=== PATIENT | male | born 1955 | race Caucasian/White ===

== ENCOUNTER → 2016-08-24 | Outpatient (CLI) | payer OTHER ==
--- NOTE | 2016-08-24 15:30 | DX ---
Lumbar Spine, Two Views. HISTORY: Follow-up lumbar spine surgery. COMPARISON: June 2016. FINDINGS: Five lumbar-type vertebral bodies are visualized. There is a slight levoscoliotic curvature which is stable. Postsurgical changes are seen of fusion L4-L5 with interbody bone graft. 5 mm of an terolisthesis of L4 on L5 which is stable. Pedicle screws and stabilization rods on the right as well as a spinous process fixation device. Minimal disk height narrowing and spurring at L3-L4 with minim al anterolisthesis of L3 on L4 unchanged. Vascular calcifications are seen in the abdominal aorta ind icating atherosclerotic disease. IMPRESSION: Stable postoperative changes of fusion L4-L5 with grade 1 anterior spondylolisthesis as a karely.
== END ==
LOC: FIMAGING 11:59
PROVIDERS: ATTEND Neurological Surgery
DX: Z09 Encounter for follow-up examination after completed treatment for conditions other than malignant neoplasm (principal); Z98.1 Arthrodesis status; M43.16 Spondylolisthesis, lumbar region

== ENCOUNTER → 2016-09-02 | Outpatient (CLI) | payer OTHER ==
[~2016-09-02] MED LIST: GADOBUTROL 10 ML VIAL IVP ONE
[2016-09-02 12:54] LABS: CREATININE 1.5 mg/dL (0.7-1.3)
--- NOTE | 2016-09-02 15:54 | MR ---
MRI Lumbar Spine Without and With Contrast History: Back pain. History of prior lumbar fusion. Right leg pain. Left leg numbness. Comparison: March 2016. Technique: MRI is performed of the lumbar spine using a 1.5 Ilene MRI system. Sagittal and axial imag ing was obtained with standard imaging sequences. Images were obtained pre- and postintravenous contr ast, 8 mL Gadavist. Findings: Postsurgical changes are seen of fusion, L4-L5. Pedicle screws are seen on the right. Inter body bone graft is seen in place in stable position. No evidence for abnormal enhancement. Spinous fi xation device is seen at L5-S1 and right laminectomy. Conus is visualized at T12-L1. No evidence of a bnormal enhancement of the conus or cauda equina. Minimal anterolisthesis is seen of L4 on L5, stable in appearance. T12-L1 level unremarkable. L1-L2 level unremarkable. L2-L3 level demonstrates a minimal broad-based annular bulge, causing no significant encroachment. L3-L4 level demonstrates a broad-based annular bulge. Moderate facet and ligament flavum hypertrophy is seen bilaterally and fluid distention of the facet joints. A synovial cyst is seen posterior to th e left facet joint, measuring 6 mm. This is causing mild spinal canal and mild to moderate bilateral neural foraminal narrowing, similar in appearance. L4-L5 level demonstrates no significant neural foraminal encroachment. L5-S1 level demonstrates mild facet arthropathy, causing no significant encroachment. Impression: 1. Postsurgical changes of fusion, L4-L5 with mild grade 1 anterior spondylolisthesis of L4 on L5 wit h a stable appearance. 2. Multilevel degenerative disk and degenerative joint disease of the lumbar spine, most significant at L3-L4 with mild spinal canal and mild to moderate bilateral neural foraminal narrowing, similar in appearance.
== END ==
LOC: FIMAGING 11:29
PROVIDERS: ATTEND Physician Assistant Surgical
DX: M43.16 Spondylolisthesis, lumbar region (principal); Z98.1 Arthrodesis status
CPT/HCPCS: 72158; A9585

== ENCOUNTER → 2016-09-27 | Outpatient (CLI) | payer OTHER, MEDICAID | LOC: FIMAGING 10:22 | PROVIDERS: ATTEND Physician Assistant Surgical | DX: M43.16 Spondylolisthesis, lumbar region (principal); Z98.1 Arthrodesis status ==

== ENCOUNTER 2016-10-13 14:36 | Emergency (ER) | payer OTHER ==
[2016-10-13] MEDS ORDERED: PROPARACAINE 0.5% 15 ML OPHT DROP ONE (14:51)
[2016-10-13] MEDS ORDERED: FLUORESCEIN SODIUM 1 MG STRIP OP ONE ×2 (14:51→14:54)
[2016-10-13 14:54] VITALS: RESP 14; TEMP 98.4
[2016-10-13] MEDS ORDERED: PROPARACAINE 0.5% 15 ML OPHT DROP LEFTEYE ONE (14:54)
--- NOTE | 2016-10-13 15:08 | EDPHY ---
H & P Time Seen by Provider: 10/13/16 14:43 HPI/ROS: CHIEF COMPLAINT: left eye irritation HISTORY OF PRESENT ILLNESS: 61-year-old male presents emergency department complaining of left eye irritation. Patient reports he saw his elementary school teacher 3 days ago for a pain in his left upper eye. Patient thought he had a retained gas per mandible hard contact lens. The elementary school teacher was unable to locate lens and discharge him Systane. Patient returns today with continued pain is left upper eye. Patient reports he looks up he feels like he has something scratching his upper eyelid with sharp pain, no fevers or chills, no discharge, no itching of this eye, no recent illness. Smoking Status: Former smoker Physical Exam: Pupils: PERRLA, EOMI, no nystagmus, no trauma, no injection. Lids: Left eyelid was inverted, heart contact lens was seen in upper left lateral eye, this was removed without difficulty with a Q-tip Skin: No proptosis, no periorbital erythema or swelling, no vesicles Conjunctivae: Not injected, not icteric, no discharge Cornea: Exam with slit lamp and fluoroscein shows no corneal abrasion, negative Dominga sign Anterior chamber: Normal, no hyphema or hypopyon Constitutional: Initial Vital Signs Temperature (C) 36.9 C 10/13/16 14:52 Heart Rate 87 10/13/16 14:52 Respiratory Rate 14 10/13/16 14:52 Blood Pressure 155/98 H 10/13/16 14:52 O2 Sat (%) 96 10/13/16 14:52 O2 Delivery Mode Room Air Allergies/Adverse Reactions: oxycodone HCl [From OxyContin] Allergy (Verified 10/13/16 14:52) Itching Home Medications: Medication Instructions Recorded Docusate Sodium [Colace 100 MG (*)] 100 mg PO BID 01/20/15 Emtricitabine/Tenofovir [Truvada 1 tab PO DAILY@00 01/20/15 200MG/300MG (*)] Esomeprazole Mag Trihydrate 80 mg PO DAILY 01/20/15 [Nexium] Famciclovir [Famvir 250 MG (*)] 1,000 mg PO DAILY@00 01/20/15 Fluticasone Nasal [Flonase Nasal 2 sprays EACHNARE DAILY 01/20/15 [place]] Gabapentin [Neurontin] 600 mg PO HS 01/20/15 Loratadine [Claritin] 10 mg PO DAILY 01/20/15 Nevirapine [Viramune 200 mg (*)] 400 mg PO DAILY@00 01/20/15 Simvastatin 40 mg PO DAILY 01/20/15 Docusate Sodium [Colace 100 MG (*)] 100 mg PO DAILY PRN 01/21/15 oxyCODONE IR [Oxycodone Ir (*)] 5 mg PO Q4 PRN #60 tab 01/27/15 Oxycodone HCl 5 - 10 mg PO Q4-6PRN PRN #10 02/13/15 capsule MDM/Departure - MDM Medications Given: Discontinued Medications Fluorescein Sodium (Txhcr-H-Ssvdz) 1 mg OP EDNOW ONE Stop: 10/13/16 14:55 Last Admin: 10/13/16 14:55 Dose: 1 mg Proparacaine HCl (Alcaine 0.5%) 1 drops LEFTEYE ONCE ONE Stop: 10/13/16 14:55 Last Admin: 10/13/16 14:55 Dose: 1 drop ED Course/Re-evaluation: Contact lens removed from left eye after inverting upper eyelid. Lens move removed without difficulty, fluorescein and slit-lamp exam reveals no corneal abrasion. - Depart Disposition: Home, Routine, Self-Care Clinical Impression: Contact lens stuck Condition: Good Instructions: Blurred Vision (ED) Additional Instructions: Use your lubricating eyedrops every hour as needed. Follow up with her elementary school teacher for any further problems, return to the emergency department for worsening symptoms, new symptoms or concerns. Referrals: JASPAL TSANG [Other] - As per Instructions
[2016-10-13 15:24] VITALS: BP 110/78; PULSE 70; O2SAT 94
== END 2016-10-13 15:23 | disposition home or self-care (01) ==
DX: H18.822 Corneal disorder due to contact lens, left eye (principal); Z87.891 Personal history of nicotine dependence

== ENCOUNTER → 2016-11-05 | Outpatient (CLI) | payer OTHER | LOC: FIMAGING 09:40 | PROVIDERS: ATTEND Physician Assistant Surgical | DX: M54.5 Low back pain (principal); M51.26 Other intervertebral disc displacement, lumbar region; M48.06 Spinal stenosis, lumbar region; Z98.1 Arthrodesis status ==

== ENCOUNTER → 2016-11-27 | Outpatient (CLI) | payer OTHER | LOC: FIMAGING 18:03 | PROVIDERS: ATTEND Physician Assistant Surgical | DX: M47.894 Other spondylosis, thoracic region (principal); M48.04 Spinal stenosis, thoracic region; M43.13 Spondylolisthesis, cervicothoracic region; M43.16 Spondylolisthesis, lumbar region ==

== ENCOUNTER 2016-12-25 11:10 | Emergency (ER) | payer OTHER ==
[2016-12-25 11:21] VITALS: BP 134/92; PULSE 71; RESP 18; TEMP 98.4; O2SAT 96
--- NOTE | 2016-12-25 12:04 | EDPHY ---
H & P Time Seen by Provider: 12/25/16 11:24 HPI/ROS: CHIEF COMPLAINT: Leg weakness after a fall on Saturday HISTORY OF PRESENT ILLNESS: Patient had spine surgery by Dr. Parker in 2014. He has chronic right leg radiculopathy and weakness. He fell on Saturday landing on his left side and has had some increased difficulty walking since with right leg pain and weakness. He has chronic right leg radiculopathy but says his pain is worse. Is having some difficulty walking was worried that he has a new spinal problem. No incontinence. No new sensory symptoms in the legs. Denies back pain or pelvic pain. REVIEW OF SYSTEMS: Eye: no change in vision ENT: no sore throat Cardiac: no chest pain or syncope Pulmonary: no cough or SOB Abdomen: no vomiting, diarrhea, abdominal pain Musculoskeletal: no back pain Skin: no rash Neuro: no headache Constitutional: no fever : no urinary symptoms A comprehensive 10 point review of systems is otherwise negative aside from elements mentioned in the history of present illness. PAST MEDICAL HISTORY: Includes HIV, coronary disease with stenting, spinal fusion as above Social history: Lives independently on the 1st floor, no steps. Says he is able to manage at home with crutches and home health care. General Appearance: Alert and conversant, cooperative. Eyes: No scleral icterus. ENT, Mouth: Normal mucous membranes. Respiratory: Normal respiratory effort, breath sounds equal, lungs are clear to auscultation. Cardiovascular: Regular rate and rhythm. Gastrointestinal: Abdomen is soft and non tender. Neurological: Alert and oriented x3. Normally conversant. Face symmetric, normal movement and sensation in all extremities. Toes are downgoing bilaterally. Patellar reflexes 1+ and present on both sides, ankle reflexes 1+ and present and able to lift each leg off the bed independently. He does have 5 /5 plantar and dorsiflexion of the feet. Skin: Warm and dry, no rashes. Musculoskeletal: No peripheral edema and no joint swelling. No spinal tenderness to palpation. Does not have hip pain on either side with rotation or axial loading. Psychiatric: Not agitated. Emergency Department course/MDM: Plan lumbar spine x-rays, MRI to evaluate for new spinal problem. 1250: MRI per Isuanthom, L3-4 and 4-5 right sided narrowing. 1305: Gustavo fuentes V reviewed MRI, okay for discharge per neurosurgical perspective , results discussed with the patient at this time. Patient refused blood draw or laboratory studies. I think he has a low risk of metabolic abnormality causing his symptoms but he is warned that we can't completely exclude this without checking. Ambulatory out of the emergency department at 2:10 p.m. Smoking Status: Former smoker Constitutional: Initial Vital Signs Temperature (C) 36.9 C 12/25/16 11:16 Heart Rate 71 12/25/16 11:16 Respiratory Rate 18 12/25/16 11:16 Blood Pressure 134/92 H 12/25/16 11:16 O2 Sat (%) 96 12/25/16 11:16 O2 Delivery Mode Room Air Allergies/Adverse Reactions: oxycodone HCl [From OxyContin] Allergy (Verified 12/25/16 11:13) Itching Home Medications: Medication Instructions Recorded Esomeprazole Mag Trihydrate 80 mg PO DAILY 01/20/15 [Nexium] Fluticasone Nasal [Flonase Nasal 2 sprays EACHNARE DAILY 01/20/15 [place]] Gabapentin [Neurontin] 600 mg PO HS 01/20/15 Aspirin 325 mg (*) 12/25/16 Atorvastatin Calcium 12/25/16 Descovy 200-25 mg Tablet 12/25/16 Plavix 12/25/16 Tivicay 12/25/16 Medical Decision Making - Diagnostics Imaging Results: Imaging Impressions Lumbar Spine MRI 12/25/16 11:44 Impression: 1. L3-L4: Moderate central canal stenosis secondary to severe bilateral facet arthropathy and disk bulge also resulting in mild to moderate bilateral neural foraminal stenosis. 2. L4-L5: Postsurgical changes with degenerative grade 1 anterolisthesis resulting in mild to moderate right neural foraminal stenosis with probable granulation tissue in the right neural foramen. No central canal stenosis. 3. Please see above findings at specific disk levels. Findings and recommendations discussed with Emergency Department physician, Negrito Harding, at 1300 hours on December 25, 2016. Final report concurs with initial preliminary interpretation. X-rays lumbar spine and pelvis negative except for scoliosis and hardware. Differential Diagnosis: Differential considered including but not limited to hip contusion, worsening radiculopathy, spinal cord stenosis, fracture or dislocation - Data Points Laboratory Results: 12/25/16 13:10 Urine Color YELLOW Urine Appearance CLEAR Urine pH 7.0 (5.0-7.5) Ur Specific [place] 1.009 (1.002-1.030) Urine Protein NEGATIVE (NEGATIVE) Urine Ketones NEGATIVE (NEGATIVE) Urine Blood NEGATIVE (NEGATIVE) Urine Nitrate NEGATIVE (NEGATIVE) Urine Bilirubin NEGATIVE (NEGATIVE) Urine Urobilinogen NEGATIVE EU EU (0.2-1.0) Ur Leukocyte Esterase NEGATIVE (NEGATIVE) Urine Glucose NEGATIVE (NEGATIVE) Departure - Departure Disposition: Home, Routine, Self-Care Clinical Impression: Lumbar radiculopathy Condition: Good Instructions: Lumbar Radiculopathy (ED) Referrals: Favio Walsh MD [Primary Care Provider] - As per Instructions
[2016-12-25 13:39] LABS: COLOR YELLOW; LEUKOCYTE ESTERASE,URINE NEGATIVE (NEGATIVE); NITRITE,URINE NEGATIVE (NEGATIVE)
== END 2016-12-25 14:15 | disposition home or self-care (01) ==
DX: M54.16 Radiculopathy, lumbar region (principal); B20 Human immunodeficiency virus [HIV] disease; I25.10 Atherosclerotic heart disease of native coronary artery without angina pectoris; Z79.82 Long term (current) use of aspirin; Z87.891 Personal history of nicotine dependence; Z95.5 Presence of coronary angioplasty implant and graft

== ENCOUNTER → 2017-01-04 | Outpatient (CLI) | payer OTHER | LOC: FIMAGING 12:56 | PROVIDERS: ATTEND Neurological Surgery | DX: Z01.810 Encounter for preprocedural cardiovascular examination (principal) ==

== ENCOUNTER 2017-01-12 20:25 | Emergency (ER) | payer OTHER ==
[2017-01-12 20:33] VITALS: BP 145/96; PULSE 106; RESP 18; TEMP 97.7; O2SAT 96
--- NOTE | 2017-01-12 21:43 | EDPHY ---
H & P Time Seen by Provider: 01/12/17 21:20 HPI/ROS: CHIEF COMPLAINT: Pulled wires of spinal cord stimulator out of the control box HISTORY OF PRESENT ILLNESS: Patient had spinal cord stimulator placed on 2016. This is a temporary 1 with external wires which connects to a [employer] control box. Today he accidentally pulled off the dressing and the wires got caught on the door and they pulled out of the control box. REVIEW OF SYSTEMS: His radiculopathy is actually quite a bit better with this and he does not have any weakness or numbness in his legs. No active bleeding from the site. 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 Patient has normal motor and sensory of both feet. Toes downgoing. Ambulatory. His lumbar incision is clean dry and intact with Steri-Strips in place. Site with the wires exit is clean without evidence of surrounding redness or drainage or pus or bleeding. Emergency Department course/MDM: Discussed in detail with the on-call surgeon Dr. Green. Plan to have the patient connect with the [employer] rep tomorrow to reset his wires of the device. Discussed with the [employer] rep at 9:57 p.m. per surgeon, clearly stable for discharge without any further action. There is not evidence of bleeding or infection at this time. Smoking Status: Former smoker Constitutional: Initial Vital Signs Temperature (C) 36.5 C 01/12/17 20:28 Heart Rate 106 H 01/12/17 20:28 Respiratory Rate 18 01/12/17 20:28 Blood Pressure 145/96 H 01/12/17 20:28 O2 Sat (%) 96 01/12/17 20:28 O2 Delivery Mode Room Air Allergies/Adverse Reactions: oxycodone HCl [From OxyContin] Allergy (Verified 01/12/17 20:33) Itching Home Medications: Medication Instructions Recorded Esomeprazole Mag Trihydrate 80 mg PO DAILY 01/20/15 [Nexium] Fluticasone Nasal [Flonase Nasal 2 sprays EACHNARE DAILY 01/20/15 [place]] Gabapentin [Neurontin] 600 mg PO HS 01/20/15 Aspirin 325 mg (*) 12/25/16 Atorvastatin Calcium 12/25/16 Descovy 200-25 mg Tablet 12/25/16 Plavix 12/25/16 Tivicay 12/25/16 Keflex 01/12/17 [place] 5/325 (*) 01/12/17 MDM/Departure - Depart Disposition: Home, Routine, Self-Care Clinical Impression: spinal cord stimulator problem Condition: Good Instructions: Additional Information Additional Instructions: Call [employer] tomorrow to arrange to meet the rep to get the ends of your wires fixed. Referrals: MARIAH REYNOLDS [Other] - As per Instructions Favio Walsh MD [Medical Doctor] - As per Instructions
== END 2017-01-12 21:50 | disposition home or self-care (01) ==
DX: Z46.2 Encounter for fitting and adjustment of other devices related to nervous system and special senses (principal); B20 Human immunodeficiency virus [HIV] disease; Z79.82 Long term (current) use of aspirin

== ENCOUNTER 2017-04-09 23:06 | Emergency (ER) | payer OTHER ==
--- NOTE | 2017-04-09 23:56 | EDPHY ---
H & P Stated Complaint: trouble walking, altered speech - recent med changes x3 days HPI/ROS: HPI CHIEF COMPLAINT: Slow speech, slurred speech, trouble walking HISTORY OF PRESENT ILLNESS: This patient very pleasant 61-year-old male, he does have significant past medical history for HIV, bipolar disorder on lithium , additionally he has coronary artery disease and GERD, he presents emergency room stating for the past 48 hours he has been feeling slow mentation, slow speech, and trouble with his gait. He thinks it may be that his lithium level is too high. He did up his lithium level the past week. He went to 900 mg. From 600 mg. Additionally he has tapered off Neurontin recently. He denies any chest pain or shortness of breath. Denies headache. Denies focal weakness or numbness or tingling. Past Medical History: HIV, bipolar disorder, coronary artery disease, GERD Past Surgical History: No recent surgery Social History: Denies daily use of drugs alcohol tobacco products. 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 Family History: Noncontributory ROS REVIEW OF SYSTEMS: A comprehensive 10 point review of systems is otherwise negative aside from elements mentioned in the history of present illness. Exam Constitutional appears well nontoxic, triage nursing summary reviewed, vital signs reviewed, awake/alert. Eyes normal conjunctivae and sclera, EOMI, PERRLA. HENT normal inspection, atraumatic, moist mucus membranes, no epistaxis, neck supple/ no meningismus, no raccoon eyes. Respiratory clear to auscultation bilaterally, normal breath sounds, no respiratory distress, no wheezing. Cardiovascular rate normal, regular rhythm, no murmur, no edema, distal pulses normal. Gastrointestinal soft, non-tender, no rebound, no guarding, normal bowel sounds, no distension, no pulsatile mass. Genitourinary no CVA tenderness. Musculoskeletal no midline vertebral tenderness, full range of motion, no calf swelling, no tenderness of extremities, no meningismus, good pulses, neurovascularly intact. Skin pink, warm, & dry, no rash, skin atraumatic. Neurologic awake, alert and oriented x 3, AAOx3, moves all 4 extremities equally, motor intact, sensory intact, CN II-XII intact, normal cerebellar, normal vision, normal speech. Psychiatric normal mood/affect. Heme/Lymph/Immune no lymphadenopathy. Differential Diagnosis: Includes but is not limited to in a particular order supratherapeutic lithium level, dehydration, electrolyte disturbance, acute CVA , TIA Medical Decision Making: Plan for this patient IV establishment, blood work, CT scan head without contrast for stroke, check lithium level. Gentle IV hydration. Re-evaluation: 0117AM: EKG interpretation by me on record in TURN[employer] system. Impression time of EKG 1:09 a.m. this is sinus rhythm rate of 74, T-wave abnormality V1 V2 V3. V4 V5. T-wave abnormality in lateral leads 1 aVL as well. When I compare this EKG to his old EKGs these are new T-wave abnormalities. CT scan of the head without IV contrast The results of the study are negative for acute disease The study was read by Dr. Reagan I viewed the images myself on the PACS system. Need Labs. Sodium is 143, potassium 3.9 chloride 108 glucose 100 BUN 20, creatinine 1.6 hematocrit 35 hemoglobin 11.9 Lihtium ED x-ray chest one view negative for acute cardiopulmonary disease. Labs have been reviewed the following troponin is negative. Chemistry panel reviewed glucose 105, chloride 102, K 4.1, sodium 136, creatinine 1.6, BUN 21, lithium level 1.6, calcium 10.3 0156AM: [place] level noted to be 1.6 normal ranges high of 1.2. Creatinine elevated 1.6. He has received 1 L of fluid. Most likely the cause of his slow mentation and abnormal speech and trouble walking is elevated lithium level. He received 1 L normal saline will receive a 2nd L. CBC shows white count 8.2, hemoglobin 13.1, hematocrit 40.1, platelets 318 0210AM: This patient is requesting be discharged he states he feels much better after 1 L normal saline bolus. I did encourage the patient get a 2nd L of normal saline however she is declining would like to go home. He tells me feels better. He denies any chest pain or shortness of breath. I did review his CT scan of his head unremarkable chest x-ray unremarkable lab work is reassuring. No elevated white count. His EKG is noted to be changed from previous EKGs however does not have any chest pain or shortness of breath. I did encourage him that if he develops chest pain, shortness of breath severe dizziness nausea vomiting he needs return to the emergency room. He understands. He understands to also additionally stop taking extra doses of lithium. Source: Patient - Personal History Current Tetanus/Diphtheria Vaccine: Yes Current Tetanus Diphtheria and Acellular Pertussis (TDAP): Yes Tetanus Vaccine Date: <10 years - Medical/Surgical History Hx Asthma: No Hx Chronic Respiratory Disease: No Hx Diabetes: No Hx Cardiac Disease: Yes Hx Renal Disease: Yes Hx Cirrhosis: No Hx Alcoholism: Yes Hx HIV/AIDS: Yes Hx Splenectomy or Spleen Trauma: No Other PMH: HIV, stents placed [address] [place] [address] Lambert, lumbar fusion January 20 2015, spinal cord stimulator 01/10/2017 - Social History Smoking Status: Former smoker Constitutional: Initial Vital Signs Temperature (C) 36.5 C 04/09/17 23:08 Heart Rate 79 04/09/17 23:08 Respiratory Rate 18 04/09/17 23:08 Blood Pressure 138/100 H 04/09/17 23:08 O2 Sat (%) 98 04/09/17 23:08 O2 Delivery Mode Room Air Allergies/Adverse Reactions: oxycodone HCl [From OxyContin] Allergy (Verified 01/12/17 20:33) Itching Home Medications: Medication Instructions Recorded Esomeprazole Mag Trihydrate 80 mg PO DAILY 01/20/15 [Nexium] Fluticasone Nasal [Flonase Nasal 2 sprays EACHNARE DAILY 01/20/15 [place]] Gabapentin [Neurontin] 600 mg PO HS 01/20/15 Aspirin 325 mg (*) 12/25/16 Atorvastatin Calcium 12/25/16 Descovy 200-25 mg Tablet 12/25/16 Plavix 12/25/16 Tivicay 12/25/16 [place] Carbonate 04/09/17 Medical Decision Making - Data Points Laboratory Results: Laboratory Results 04/10/17 00:50 04/10/17 04/10/17 04/10/17 01:32 00:50 00:50 WBC RBC Hgb POC Hgb 11.9 gm/dL L gm/dL (13.7-17.5) Hct POC Hct 35 % L % (40-51) MCV MCH MCHC RDW Plt Count MPV Neut % (Auto) Lymph % (Auto) [place] % (Auto) Eos % (Auto) Baso % (Auto) Nucleat RBC Rel Count Absolute Neuts (auto) Absolute Lymphs (auto) Absolute Monos (auto) Absolute Eos (auto) Absolute Basos (auto) Absolute Nucleated RBC Immature Gran % Immature Gran # PT 14.0 SEC SEC (12.0-15.0) INR 1.09 (0.83-1.16) POC Sodium 143 mEq/L mEq/L (134-144) Sodium Pending POC Potassium 3.9 mEq/L mEq/L (3.3-5.0) Potassium Pending POC Chloride 108 mEq/L mEq/L (97-110) Chloride Pending Carbon Dioxide Pending Anion Gap Pending POC BUN 20 mg/dL mg/dL (7-23) BUN Pending Creatinine Pending POC Creatinine 1.6 mg/dL H mg/dL (0.7-1.3) Estimated GFR Pending Glucose Pending POC Glucose 100 mg/dL mg/dL (70-100) Calcium Pending Troponin I < 0.012 ng/mL ng/mL (0.000-0.034) [place] Pending 04/10/17 00:50 WBC 8.82 10^3/uL 10^3/uL (3.80-9.50) RBC 4.20 10^6/uL L 10^6/uL (4.40-6.38) Hgb 13.1 g/dL L g/dL (13.7-17.5) POC Hgb Hct 40.1 % % (40.0-51.0) POC Hct MCV 95.5 fL fL (81.5-99.8) MCH 31.2 pg pg (27.9-34.1) MCHC 32.7 g/dL g/dL (32.4-36.7) RDW 12.8 % % (11.5-15.2) Plt Count 318 10^3/uL 10^3/uL (150-400) MPV 9.3 fL fL (8.7-11.7) Neut % (Auto) 61.1 % % (39.3-74.2) Lymph % (Auto) 28.7 % % (15.0-45.0) [place] % (Auto) 6.1 % % (4.5-13.0) Eos % (Auto) 3.3 % % (0.6-7.6) Baso % (Auto) 0.6 % % (0.3-1.7) Nucleat RBC Rel Count 0.0 % % (0.0-0.2) Absolute Neuts (auto) 5.39 10^3/uL 10^3/uL (1.70-6.50) Absolute Lymphs (auto) 2.53 10^3/uL 10^3/uL (1.00-3.00) Absolute Monos (auto) 0.54 10^3/uL 10^3/uL (0.30-0.80) Absolute Eos (auto) 0.29 10^3/uL 10^3/uL (0.03-0.40) Absolute Basos (auto) 0.05 10^3/uL 10^3/uL (0.02-0.10) Absolute Nucleated RBC 0.00 10^3/uL 10^3/uL (0-0.01) Immature Gran % 0.2 % % (0.0-1.1) Immature Gran # 0.02 10^3/uL 10^3/uL (0.00-0.10) PT INR POC Sodium Sodium POC Potassium Potassium POC Chloride Chloride Carbon Dioxide Anion Gap POC BUN BUN Creatinine POC Creatinine Estimated GFR Glucose POC Glucose Calcium Troponin I [place] Medications Given: Discontinued Medications Sodium Chloride (Ns) 1,000 mls @ 0 mls/hr IV ONCE ONE; Wide Open PRN Reason: Protocol Stop: 04/10/17 00:16 Last Admin: 04/10/17 00:27 Dose: 1,000 mls Point of Care Test Results: 04/10/17 01:32 POC Sodium 143 POC Potassium 3.9 POC Chloride 108 POC BUN 20 POC Creatinine 1.6 H POC Glucose 100 Departure - Departure Disposition: Home, Routine, Self-Care Clinical Impression: Dizziness Condition: Good Instructions: Dizziness (ED) Additional Instructions: 1. Please stay well-hydrated drink lots of fluids. 2. Stop taking extra lithium. 3. Return emergency room if you have any further significant medical issues including worsening symptoms chest pain, shortness of breath, dizziness, lightheaded, syncope. Referrals: Lucas Cook MD [Primary Care Provider] - As per Instructions
[2017-04-10] MEDS ORDERED: NS 1,000 ML IV ONE (00:15)
[2017-04-10 00:54] LABS: % IMMATURE GRANULYOCYTES 0.2 % (0.0-1.1); ABSOLUTE IMMATURE GRANULOCYTES 0.02 10^3/uL (0.00-0.10); ADD DIFF? NO; ADD MORPH? NO; ADD SCAN? NO; ATYPICAL LYMPHOCYTE FLAG 0 (0-99); FRAGMENT RBC FLAG 0 (0-99); HEMATOCRIT 40.1 % (40.0-51.0); HEMOGLOBIN 13.1 g/dL (13.7-17.5); LEFT SHIFT FLG 0 (0-99); LIPEMIA HEMOLYSIS FLAG 80 (0-99); MEAN CELL HEMOGLOBIN 31.2 pg (27.9-34.1); MEAN CELL HEMOGLOBIN CONCENTR. 32.7 g/dL (32.4-36.7); MEAN CELL VOLUME 95.5 fL (81.5-99.8); MEAN PLATELET VOLUME 9.3 fL (8.7-11.7); PLATELET CLUMPS FLAG 0 (0-99); PLATELET COUNT 318 10^3/uL (150-400); RED CELL DISTRIBUTION WIDTH 12.8 % (11.5-15.2)
--- NOTE | 2017-04-10 01:02 | CPEKG ---
Heart Rate: 74 RR Interval: 811 P-R Interval: 184 QRSD Interval: 100 QT Interval: 416 QTC Interval: 462 P [place]: 35 QRS [place]: -6 T Wave [place]: 189 EKG Severity - ABNORMAL ECG - EKG Impression: SINUS RHYTHM EKG Impression: LEFT ATRIAL ABNORMALITY EKG Impression: REPOL ABNRM SUGGESTS ISCHEMIA, DIFFUSE LEADS Electronically Signed By: Lucas Sales 10-Apr-2017 07:17:35
[2017-04-10 01:03] LABS: INR 1.09 (0.83-1.16)
[2017-04-10 01:33] LABS: TROPONIN I < 0.012 ng/mL (0.000-0.034)
[2017-04-10 01:48] LABS: ANION GAP 13 mEq/L (8-16); CALCIUM 10.3 mg/dL (8.5-10.4); CARBON DIOXIDE 21 mEq/l (22-31); CHLORIDE 102 mEq/L (97-110); CREATININE 1.6 mg/dL (0.7-1.3); GLOMERULAR FILTRATION RATE 44; GLUCOSE 105 mg/dL (70-100); LITHIUM 1.6 mEq/L (0.6-1.2); POTASSIUM 4.1 mEq/L (3.5-5.2); SODIUM 136 mEq/L (134-144)
[2017-04-10 05:42] VITALS: BP 121/99; PULSE 95; RESP 16; TEMP 98.1; O2SAT 99
== END 2017-04-10 02:15 | disposition home or self-care (01) ==
DX: R42 Dizziness and giddiness (principal); E86.0 Dehydration; B20 Human immunodeficiency virus [HIV] disease; I25.10 Atherosclerotic heart disease of native coronary artery without angina pectoris; R78.89 Finding of other specified substances, not normally found in blood; E86.9 Volume depletion, unspecified; Z87.891 Personal history of nicotine dependence; Z79.82 Long term (current) use of aspirin
CPT/HCPCS: 82947-QW

== ENCOUNTER 2017-05-11 16:53 | Emergency (ER) | payer OTHER ==
[2017-05-11 17:11] VITALS: BP 144/96; PULSE 87; RESP 16; TEMP 97.5; O2SAT 97
--- NOTE | 2017-05-11 18:18 | EDPHY ---
General Time Seen by Provider: 05/11/17 17:51 Narrative: CHIEF COMPLAINT: Leg pain HISTORY OF PRESENT ILLNESS: Patient complains of pain in both lower extremities. This has been present for 1-2 weeks gradual onset. Constant duration. [id number] pain. It is located on the right hip and wraps around the anterior thigh into the medial knee. Also located on the left and proximal thigh. [id number] pain. Worse with movement and ambulation. Some improvement with rest. There is no change in his baseline sensory, which does have some paresthesia from lumbar radiculopathy. He has no saddle anesthesia. No incontinence of bowel or bladder. No retention of bowel or bladder. No weakness of the legs. No footdrop. Does have a history of lumbar pathology, status post spinal cord stimulator January. He was feeling well until he saw his surgeon to see ago. No new trauma. No other associated complaints or modifying factors. REVIEW OF SYSTEMS: Ten systems reviewed and are negative unless otherwise noted in the HPI PCP: Dr. Walsh SPECIALISTS: Dr. Walsh PAST MEDICAL HISTORY: Bipolar disorder, right-sided lumbar radiculopathy from L5 down, HIV positive with normal count, coronary artery disease, osteoporosis, osteoarthritis PAST SURGICAL HISTORY: But cord stimulator January 2017, L4-5 fusion 2014, ORIF left ankle remotely SOCIAL HISTORY: Nonsmoker. Quit smoking in 2002. Does not drink alcohol, quit drinking alcohol in 1989. No illicit substances. FAMILY HISTORY: Noncontributory EXAMINATION General Appearance: Alert, no distress Head: normocephalic, atraumatic Eyes: Pupils equal and round, no conjunctival pallor or injection ENT, Mouth: Mucous membranes moist Neck: Normal inspection, supple, non-tender Respiratory: No returns or distress Cardiovascular: Regular rate and rhythm. No murmur. Pulses intact distally in symmetrically with DP and PT pulses 2+ Back: non-tender, no bony abnormalities. There is a well-healed midline surgical incision in the thoracic region. There is no crepitus, step-off or deformity. Neurological: A&O, nonfocal, normal gait. Strength is symmetric in 4 limbs. No foot drop. Patellar reflexes are symmetric at 2+ Skin: Warm and dry, no rash. No lacerations or abrasions. No petechiae or purpura Extremities: Nontender, no pedal edema. Symmetric range of motion of both legs. Psychiatric: Mood and affect normal DIFFERENTIAL DIAGNOSES: Including but not limited to lumbar radiculopathy, chronic pain, neuropathic pain, hip pain MDM: 6:00 p.m. Bilateral lower extremity pain without any evidence of acute cord compression or cauda equina. No footdrop. He is neuro intact. Strength is 5/5 in the hips , ankles and knees. No dysmetria of the lower extremities. Patient does not want narcotics. I do feel he would benefit from return to the Neurontin for the next 2 days and then follow up with his neurosurgeon. I discussed this with Dr. Sales and the patient as well. We are all in agreement. He has his own Neurontin at home from previous prescription and is not . I also discussed ED precautions for the patient including saddle anesthesia, incontinence of bowel or bladder, weakness of the lower extremities or foot drop. He is comfortable this plan. He is discharged home stable condition. - History Smoking Status: Former smoker - Objective Vital Signs: Initial Vital Signs Temperature (C) 97.5 F 05/11/17 17:07 Heart Rate 87 05/11/17 17:07 Respiratory Rate 16 05/11/17 17:07 Blood Pressure 144/96 H 05/11/17 17:07 O2 Sat (%) 97 05/11/17 17:07 O2 Delivery Mode Room Air Allergies/Adverse Reactions: lithium [From Eskalith] Allergy (Verified 05/11/17 17:02) oxycodone HCl [From OxyContin] Allergy (Verified 05/11/17 17:02) Itching Home Medications: Medication Instructions Recorded Esomeprazole Mag Trihydrate 80 mg PO DAILY 01/20/15 [Nexium] Fluticasone Nasal [Flonase Nasal 2 sprays EACHNARE DAILY 01/20/15 Fabius] Aspirin 325 mg (*) 12/25/16 Atorvastatin Calcium 12/25/16 Descovy 200-25 mg Tablet 12/25/16 Plavix 12/25/16 Tivicay 12/25/16 Aspirin EC 325 mg (*) 05/11/17 Departure - Departure Disposition: Home, Routine, Self-Care Clinical Impression: S/P lumbar spinal fusion, Lumbar radiculopathy, chronic Condition: Good Instructions: Lumbar Radiculopathy (ED) Additional Instructions: 1. Neurontin 300 mg tonight x1, then 300 mg twice daily tomorrow, then 300 mg 3 times daily starting Saturday 2. Follow up with Dr. Walsh 3. ED precautions for worsening pain, numbness, tingling, weakness of the extremities, foot drop, incontinence of bowel or bladder Referrals: Lucas Cook MD [Primary Care Provider] - As per Instructions Favio Walsh MD [Medical Doctor] - As per Instructions
== END 2017-05-11 18:30 | disposition home or self-care (01) ==
DX: M54.16 Radiculopathy, lumbar region (principal); I25.10 Atherosclerotic heart disease of native coronary artery without angina pectoris; B20 Human immunodeficiency virus [HIV] disease; Z79.82 Long term (current) use of aspirin; Z87.891 Personal history of nicotine dependence; Z98.890 Other specified postprocedural states

== ENCOUNTER 2017-05-29 13:24 | Emergency (ER) | payer OTHER ==
[2017-05-29 13:34] VITALS: RESP 18
--- NOTE | 2017-05-29 14:49 | EDPHY ---
General - History Smoking Status: Former smoker Narrative: CHIEF COMPLAINT: Leg pain, weakness HISTORY OF PRESENT ILLNESS: Patient complains of severe right lower extremity pain. This has worsened since the last time I evaluated him 2 weeks ago. He has history of low back pain status post laminectomy and fusion and spinal cord stimulator in place since January of this year. He was seen here by me recently and we started him back on his Neurontin. He has been contacting his surgeon Dr. Walsh. Patient says that his office had informed him that they cannot provide any further services to him and that he should see a painter tumbling barrel. He reports increasing pain in the right lower extremity from the buttock down to the top of the foot. It is severe. It is worse with palpation and ambulation. It radiates down the entire leg. No numbness or tingling. No weakness. No incontinence of bowel or bladder. No new trauma or injury. The pain stimulator was adjusted 3 weeks ago and he feels as though it is worse since then. He has made attempts to discuss with the [employer] sales representative. REVIEW OF SYSTEMS: Ten systems reviewed and are negative unless otherwise noted in the HPI PCP: Dr. Cook SPECIALISTS: Dr. Walsh PAST MEDICAL HISTORY: Bipolar disorder, chronic low back pain, lumbar radiculopathy, HIV PAST SURGICAL HISTORY: Lumbar laminectomy with diskectomy and fusion. Spinal cord stimulator placement SOCIAL HISTORY: Nonsmoker. Disability FAMILY HISTORY: Noncontributory EXAMINATION General Appearance: Alert, no distress Head: normocephalic, atraumatic Eyes: Pupils equal and round, no conjunctival pallor or injection ENT, Mouth: Mucous membranes moist Neck: Normal inspection, supple, non-tender Respiratory: No retractions or distress Cardiovascular: Regular rate. Pulses intact distally with symmetric DP and PT pulses. Back: Mild lumbar tenderness. No step-off, crepitus or deformity. There is a well-healed lumbar surgical incision. Neurological: GCS 15. A&O, nonfocal, no foot drop on the right lower extremity. Strength is symmetric in the knees, ankles and hips. Sensory intact distally. Patellar reflexes symmetric. Skin: Warm and dry, no rash Extremities: Point tenderness of the right buttock. Range of motion is intact in lower extremities without deficit. No evidence of DVT. Psychiatric: Mood and affect normal DIFFERENTIAL DIAGNOSES: Including but not limited to lumbar radiculopathy, acute cord compression, cauda equina, malfunction of spinal cord stimulator MDM: 3:20 p.m. Increasing right lower extremity pain that seems to be radicular. He does have a chronic back pain history. He does have stimulator placed. No saddle anesthesia or evidence of acute cord compression or cauda equina by history exam. Given his severity of pain, inability to ambulate due to this, I have ordered MRI of the lumbar spine. He informs me that he has an MRI safe stimulator, and he has had 1 MRI since placement of the stimulator. 4:15 p.m. Notified by RN that the patient is asking for pain medication for MRI. Due to his Percocet allergy I have ordered morphine IM. 4:40 p.m. Attempted to re-evaluate the patient is still in MRI. I discussed the case with Dr. Harding. Pending outcome of the MRI, plan for discharge home with pain medication, neurosurgery follow-up and crutches if needed. This of course assume that there is no surgical finding on the MRI. 5:00 p.m. Case discussed with Dr. Harding. At this time he is whom care the patient. Patient still in MRI. Please see the note of Dr. Harding for final disposition (Lee Gilliland) Medical Decision Making: MRI compared to December 2016 similar, no change, Isuani at 1801. 1805: Patient personally evaluated by myself, appears to have normal movement of both legs. Ambulatory. Afebrile, diskitis considered unlikely. He is requesting additional morphine 2 mg IM which is given. He was written for outpatient oral narcotics by Lee Gilliland. Discussed the case and imaging results with Ron López; office follow-up with his neurosurgeon. (Negrito Harding) - Diagnostics Imaging Results: Imaging Impressions Lumbar Spine MRI 05/29/17 15:02 Impression: 1. L3-L4: Moderate central canal stenosis, moderate to severe right neural foraminal stenosis and moderate left neural foraminal stenosis secondary to severe bilateral facet arthropathy, mild degenerative disk disease and disk bulge. 2. L4-L5: Postsurgical changes with degenerative grade 1 anterolisthesis and disk edema similar to previous study. No central canal or neural foraminal stenosis. 3. Please see above findings at specific disk levels. Findings and recommendations discussed with Emergency Department physician, Dr. Negrito Harding at 18:00 hour, 05/29/2017. Final report concurs with initial preliminary interpretation. - Objective Vital Signs: Initial Vital Signs Temperature (C) 36.5 C 05/29/17 13:26 Heart Rate 78 05/29/17 13:26 Respiratory Rate 18 05/29/17 13:26 Blood Pressure 140/80 H 05/29/17 13:26 O2 Sat (%) 94 05/29/17 13:26 O2 Delivery Mode Room Air Allergies/Adverse Reactions: oxycodone HCl [From OxyContin] Allergy (Verified 05/29/17 13:26) Itching escalith Allergy (Uncoded 05/29/17 13:35) Home Medications: Medication Instructions Recorded Atorvastatin Calcium [Lipitor 40 40 mg PO 05/29/17 mg (*)] Clopidogrel Bisulfate [Plavix (*)] 75 mg PO DAILY 05/29/17 Dolutegravir Sodium [Tivicay] 10 mg PO 05/29/17 Emtricitabine/Tenofov Alafenam 1 each PO 05/29/17 [Descovy 200-25 mg Tablet] Esomeprazole Magnesium [Nexium] 05/29/17 Gabapentin [Neurontin 300 MG (*)] 05/29/17 Hydrocodone/APAP 5/325 [[place] 1 - 2 tab PO Q4H PRN #13 tab 05/29/17 5/325 (*)] [place] Carbonate [[place] 300 mg PO 05/29/17 Carbonate Cap 300 mg (*)] Medications Given: Discontinued Medications Morphine Sulfate (Morphine) 6 mg IM EDNOW ONE Stop: 05/29/17 16:12 Last Admin: 05/29/17 16:27 Dose: 2 mg Morphine Sulfate (Morphine) 2 mg IM EDNOW ONE Stop: 05/29/17 18:13 Last Admin: 05/29/17 18:40 Dose: 2 mg Departure - Departure Disposition: Home, Routine, Self-Care Clinical Impression: Lumbar radiculopathy, acute Chronic low back pain Qualifiers: Back pain laterality: right Sciatica presence: with sciatica Sciatica laterality: sciatica of right side Qualified Code(s): M54.41 - Lumbago with sciatica, right side Condition: Good Instructions: Lumbar Radiculopathy (ED) Additional Instructions: 1. Medications as prescribed as needed 2. Follow up with established neurosurgeon for definitive care Referrals: Lucas Cook MD [Primary Care Provider] - As per Instructions Favio Walsh MD [Medical Doctor] - As per Instructions Prescriptions: Hydrocodone/APAP 5/325 [[place] 5/325 (*)] 1 - 2 tab PO Q4H PRN #13 tab PRN Reason: Pain, Moderate
[2017-05-29 18:44] VITALS: BP 145/102; PULSE 67; TEMP 98.1; O2SAT 97
== END 2017-05-29 18:45 | disposition home or self-care (01) ==
DX: M54.41 Lumbago with sciatica, right side (principal); M54.16 Radiculopathy, lumbar region; B20 Human immunodeficiency virus [HIV] disease; Z87.891 Personal history of nicotine dependence

== ENCOUNTER 2017-05-31 12:46 | Emergency (ER) | payer OTHER ==
--- NOTE | 2017-05-31 14:11 | EDPHY ---
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 Meza. He was seen here 2 days ago and had an MRI that time that showed no change from previous. He states that his spinal stimulator was turned down about 3 weeks ago and since then he has had increasing his pain and cannot ambulate because of pain. He has a an appointment with the stimulator rep tomorrow. No new weakness or numbness. No incontinence. When he was seen here 2 days ago he received significant improvement with 2 mg of IM morphine and was discharged with hydrocodone. He states that that has not been working. The staff at Dr. Walsh's office stated that they cannot provide any further services for him and that he should see his primary care doctor and panel edge painter. The patient was referred to two panel edge painter but they are both out of town and he has difficulty getting out of town. He did find a Dr. Skaggs here in town but cannot get an appointment for 30 days. He has called Dr. Cook's office but he has been out of town expected to return today. He states that he understands our no narcotic policy but that he is trying alternatives and cannot get any help. He does not wish to have any new workup or testing. He states that his symptoms have not changed. No fevers. No recent trauma. REVIEW OF SYSTEMS: Constitutional: denies: chills, fever, recent illness, recent injury EENTM: denies: blurred vision, double vision, nose congestion Respiratory: denies: cough, shortness of breath Cardiac: denies: chest pain, irregular heart rate, lightheadedness, palpitations Gastrointestinal/Abdominal: denies: abdominal pain, diarrhea, nausea, vomiting, blood streaked stools Genitourinary: denies: dysuria, frequency, hematuria, pain Musculoskeletal: See HPI Skin: denies: lesions, rash, jaundice, bruising Neurological: denies: headache, numbness, paresthesia, tingling, dizziness, weakness Hematologic/Lymphatic: denies: blood clots, easy bleeding, easy bruising Immunologic/allergic: denies: HIV/AIDS, transplant EXAM: GENERAL: Well-appearing, well-nourished and in no acute distress. HEAD: Atraumatic, normocephalic. EYES: Pupils equal round and reactive to light, extraocular movements intact, sclera anicteric, conjunctiva are normal. ENT: Moist mucous membranes. NECK: Normal range of motion, supple LUNGS: No respiratory distress HEART: Regular rate and rhythm ABDOMEN: Soft BACK: Chronic pain EXTREMITIES: Moving extremities and traore strength no shortness NEUROLOGICAL: Cranial nerves II through XII grossly intact. Normal speech, normal gait. 5/5 strength, normal movement in all extremities, normal sensation PSYCH: Normal mood, normal affect. SKIN: Warm, dry, normal turgor, no visible rashes or lesions. Source: Patient Exam Limitations: No limitations - Personal History Current Tetanus/Diphtheria Vaccine: Yes Tetanus Vaccine Date: 2015 - Medical/Surgical History Hx Asthma: No Hx Chronic Respiratory Disease: No Hx Diabetes: No Hx Cardiac Disease: Yes Hx Renal Disease: Yes Hx Cirrhosis: No Hx Alcoholism: Yes Hx HIV/AIDS: Yes Hx Splenectomy or Spleen Trauma: No Other PMH: HIV, stents placed 2001 [address] [place] [address]. Lambert, lumbar fusion January 20 2015, spinal cord stimulator 01/10/2017 - Social History Smoking Status: Former smoker Alcohol Use: Sober Drug Use: Other Constitutional: Initial Vital Signs Temperature (C) 36.7 C 05/31/17 13:01 Heart Rate 79 05/31/17 13:01 Respiratory Rate 20 05/31/17 13:01 Blood Pressure 150/100 H 05/31/17 13:01 O2 Sat (%) 96 05/31/17 13:01 O2 Delivery Mode Room Air Allergies/Adverse Reactions: oxycodone HCl [From OxyContin] Allergy (Verified 05/31/17 12:59) Itching oxycodone HCl Allergy (Unknown, Uncoded 05/31/17 16:17) Itching escalith Allergy (Uncoded 05/29/17 13:35) Home Medications: Medication Instructions Recorded Atorvastatin Calcium [Lipitor 40 40 mg PO 05/29/17 mg (*)] Clopidogrel Bisulfate [Plavix (*)] 75 mg PO DAILY 05/29/17 Dolutegravir Sodium [Tivicay] 10 mg PO 05/29/17 Emtricitabine/Tenofov Alafenam 1 each PO 05/29/17 [Descovy 200-25 mg Tablet] Esomeprazole Magnesium [Nexium] 05/29/17 Gabapentin [Neurontin 300 MG (*)] 05/29/17 Hydrocodone/APAP 5/325 [[place] 1 - 2 tab PO Q4H PRN #13 tab 05/29/17 5/325 (*)] Ranger Carbonate [Ranger 300 mg PO 05/29/17 Carbonate Cap 300 mg (*)] Oxycodone HCl 5 mg PO Q4-6PRN PRN #20 capsule 05/31/17 Medical Decision Making ED Course/Re-evaluation: The patient is prior here requesting stronger pain medication to get through until and follow up with his primary doctor. I will attempt contact his doctor office and confirm that this is okay with them. The patient is grateful. 2:30 p.m. the patient declined the morphine stating that the hydrocodone he took at home is now kicking in. He is able to walk with his cane which is his baseline. I spoke with his primary Dr. Guerrier who agrees with us giving him a week's worth of oxycodone until he can follow up in the office. 2:45 p.m. the patient has to speak with case management about possibly arranging meals on wheels. I will have his prescriptions ready. He is asking for that dose of morphine before discharge until he can get to the pharmacy. Patient requests oxycodone specifically stating that that works best for him. He is not allergic to oxycodone but does get an upset stomach with Tylenol. He also asked to speak with case management about arranging meals on wheels. Differential Diagnosis: Partial list of the Differential diagnosis considered include but were not limited to; low back pain, sciatica, and although unlikely based on the history and physical exam, I also considered cord compression, abscess, infection, fracture. I discussed these differential diagnoses and the plan with the patient as well as the usual and expected course. The patient understands that the diagnosis is provisional and that in medicine we are not always correct and that further workup is often warranted. Usual and customary warnings were given. All of the patient's questions were answered. The patient was instructed to return to the emergency department should the symptoms at all worsen or return, otherwise to followup with the physician as we discussed. - Data Points Medications Given: Discontinued Medications Morphine Sulfate (Morphine) 2 mg IM EDNOW ONE Stop: 05/31/17 14:06 Last Admin: 05/31/17 15:11 Dose: 2 mg Departure - Departure Disposition: Home, Routine, Self-Care Clinical Impression: Low back pain Qualifiers: Chronicity: chronic Back pain laterality: bilateral Sciatica presence: with sciatica Sciatica laterality: sciatica of right side Qualified Code(s): M54.41 - Lumbago with sciatica, right side; G89.29 - Other chronic pain; G89.29 - Other chronic pain Condition: Fair Instructions: Chronic Back Pain (ED) Referrals: Lucas Cook MD [Primary Care Provider] - As per Instructions Prescriptions: Oxycodone HCl 5 mg PO Q4-6PRN PRN #20 capsule PRN Reason: Pain, Severe
[2017-05-31 15:08] VITALS: BP 148/76; PULSE 78; RESP 18; TEMP 98.2; O2SAT 97
== END 2017-05-31 16:01 | disposition home or self-care (01) ==
DX: M54.41 Lumbago with sciatica, right side (principal); G89.29 Other chronic pain; B20 Human immunodeficiency virus [HIV] disease; Z87.891 Personal history of nicotine dependence

== ENCOUNTER → 2017-06-04 | Outpatient (CLI) | payer OTHER | LOC: FIMAGING 15:21 | PROVIDERS: ATTEND Physician Assistant | DX: M25.551 Pain in right hip (principal); M25.552 Pain in left hip; M24.851 Other specific joint derangements of right hip, not elsewhere classified; M24.852 Other specific joint derangements of left hip, not elsewhere classified; M51.36 Other intervertebral disc degeneration, lumbar region; M76.02 Gluteal tendinitis, left hip ==

== ENCOUNTER 2017-06-11 03:31 | Emergency (ER) | payer OTHER ==
[2017-06-11 03:36] VITALS: O2SAT 96
--- NOTE | 2017-06-11 03:37 | EDPHY ---
H & P Stated Complaint: worsening leg pain; has nerve stim; post lumbar fusion a year ago HPI/ROS: HPI CHIEF COMPLAINT: Pain in right leg worsening HISTORY OF PRESENT ILLNESS: This patient very pleasant 62-year-old male who arrived very familiar with, presents emergency room with chronic back pain. Patient has longstanding history of chronic back pain. Patient Presents to the emergency room with ongoing radiation of pain down the right gluteus. This additionally goes down his right leg. This is very common for him. However he states tonight the pain got worse. Was unable to sleep. Denies any midline back pain. Denies saddle anesthesia. Denies leg weakness. States the pain is rather severe. He has been recently prescribed oxycodone for this and took 5 mg which did not help his pain. Denies fever recent trauma or new fall. Past Medical History: Chronic back pain, lumbar radiculopathy, coronary artery disease, HIV, bipolar disorder Past Surgical History: L4-L5 fusion, ORIF left ankle, spinal cord stimulator Social History: Denies daily use of drugs alcohol tobacco products. Family History: Noncontributory ROS REVIEW OF SYSTEMS: A comprehensive 10 point review of systems is otherwise negative aside from elements mentioned in the history of present illness. Exam Constitutional appears well nontoxic, triage nursing summary reviewed, vital signs reviewed, awake/alert. Eyes normal conjunctivae and sclera, EOMI, PERRLA. HENT normal inspection, atraumatic, moist mucus membranes, no epistaxis, neck supple/ no meningismus, no raccoon eyes. Respiratory clear to auscultation bilaterally, normal breath sounds, no respiratory distress, no wheezing. Cardiovascular rate normal, regular rhythm, no murmur, no edema, distal pulses normal. Gastrointestinal soft, non-tender, no rebound, no guarding, normal bowel sounds, no distension, no pulsatile mass. Genitourinary no CVA tenderness. Musculoskeletal no midline vertebral tenderness, full range of motion, no calf swelling, no tenderness of extremities, no meningismus, good pulses, neurovascularly intact. Normal strength in the right lower extremity and left lower extremity. He does have tenderness to palpation down the right gluteus in the sciatic nerve distribution. He is neurovascularly intact distally. Good pulse. Warm extremity. Skin pink, warm, & dry, no rash, skin atraumatic. Neurologic awake, alert and oriented x 3, AAOx3, moves all 4 extremities equally, motor intact, sensory intact, CN II-XII intact, normal cerebellar, normal vision, normal speech. Psychiatric normal mood/affect. Heme/Lymph/Immune no lymphadenopathy. Differential Diagnosis: Includes but is not limited to in a particular order, nerve root compression, annular tear, degenerative joint disease, arthritis, compression fracture, sciatica Medical Decision Making: Plan for this patient IV established basic blood work , IV Dilaudid for acute pain control to see if we can get his pain under control. Re-evaluation: 0447am: I did re-evaluate this patient this time is feeling much better after 1 mg IV Dilaudid. He ambulated well with his cane. No signs of cauda equina. No indication for imaging at this time. Recommend close follow-up with his primary care doctor as well as chronic pain doctor. Return if worsening symptoms includes worsening back pain, fever, vomiting Source: Patient - Personal History Current Tetanus/Diphtheria Vaccine: Yes Tetanus Vaccine Date: 2015 - Medical/Surgical History Hx Asthma: No Hx Chronic Respiratory Disease: No Hx Diabetes: No Hx Cardiac Disease: Yes Hx Renal Disease: Yes Hx Cirrhosis: No Hx Alcoholism: Yes Hx HIV/AIDS: Yes Hx Splenectomy or Spleen Trauma: No Other PMH: HIV, stents placed 2001 in [place] [address]. Lambert, lumbar fusion January 20 2015, spinal cord stimulator 01/10/2017 - Social History Smoking Status: Former smoker Constitutional: Initial Vital Signs Temperature (C) 36.7 C 06/11/17 03:33 Heart Rate 82 06/11/17 03:33 Respiratory Rate 16 06/11/17 03:33 Blood Pressure 150/103 H 06/11/17 03:33 O2 Sat (%) 96 06/11/17 03:33 O2 Delivery Mode Room Air Allergies/Adverse Reactions: oxycodone HCl [From OxyContin] Allergy (Verified 05/31/17 12:59) Itching oxycodone HCl Allergy (Unknown, Uncoded 05/31/17 16:17) Itching escalith Allergy (Uncoded 05/29/17 13:35) Home Medications: Medication Instructions Recorded Atorvastatin Calcium [Lipitor 40 40 mg PO 05/29/17 mg (*)] Clopidogrel Bisulfate [Plavix (*)] 75 mg PO DAILY 05/29/17 Dolutegravir Sodium [Tivicay] 10 mg PO 05/29/17 Emtricitabine/Tenofov Alafenam 1 each PO 05/29/17 [Descovy 200-25 mg Tablet] Esomeprazole Magnesium [Nexium] 05/29/17 Gabapentin [Neurontin 300 MG (*)] 05/29/17 Hydrocodone/APAP 5/325 [[place] 1 - 2 tab PO Q4H PRN #13 tab 05/29/17 5/325 (*)] [place] Carbonate [[place] 300 mg PO 05/29/17 Carbonate Cap 300 mg (*)] Oxycodone HCl 5 mg PO Q4-6PRN PRN #20 capsule 05/31/17 Medical Decision Making - Data Points Laboratory Results: Laboratory Results 06/11/17 04:14 06/11/17 04:14 06/11/17 06/11/17 04:14 04:14 WBC 7.93 10^3/uL 10^3/uL (3.80-9.50) RBC 3.99 10^6/uL L 10^6/uL (4.40-6.38) Hgb 12.1 g/dL L g/dL (13.7-17.5) Hct 36.8 % L % (40.0-51.0) MCV 92.2 fL fL (81.5-99.8) MCH 30.3 pg pg (27.9-34.1) MCHC 32.9 g/dL g/dL (32.4-36.7) RDW 13.6 % % (11.5-15.2) Plt Count 245 10^3/uL 10^3/uL (150-400) MPV 9.5 fL fL (8.7-11.7) Neut % (Auto) 48.1 % % (39.3-74.2) Lymph % (Auto) 40.2 % % (15.0-45.0) [place] % (Auto) 6.1 % % (4.5-13.0) Eos % (Auto) 4.7 % % (0.6-7.6) Baso % (Auto) 0.8 % % (0.3-1.7) Nucleat RBC Rel Count 0.0 % % (0.0-0.2) Absolute Neuts (auto) 3.82 10^3/uL 10^3/uL (1.70-6.50) Absolute Lymphs (auto) 3.19 10^3/uL H 10^3/uL (1.00-3.00) Absolute Monos (auto) 0.48 10^3/uL 10^3/uL (0.30-0.80) Absolute Eos (auto) 0.37 10^3/uL 10^3/uL (0.03-0.40) Absolute Basos (auto) 0.06 10^3/uL 10^3/uL (0.02-0.10) Absolute Nucleated RBC 0.00 10^3/uL 10^3/uL (0-0.01) Immature Gran % 0.1 % % (0.0-1.1) Immature Gran # 0.01 10^3/uL 10^3/uL (0.00-0.10) Sodium 145 mEq/L H mEq/L (134-144) Potassium 4.2 mEq/L mEq/L (3.5-5.2) Chloride 107 mEq/L mEq/L (97-110) Carbon Dioxide 24 mEq/l mEq/l (22-31) Anion Gap 14 mEq/L mEq/L (8-16) BUN 31 mg/dL H mg/dL (7-23) Creatinine 1.6 mg/dL H mg/dL (0.7-1.3) Estimated GFR 44 Glucose 111 mg/dL H mg/dL (70-100) Calcium 9.5 mg/dL mg/dL (8.5-10.4) Medications Given: Discontinued Medications Hydromorphone HCl (Dilaudid) 1 mg IVP EDNOW ONE Stop: 06/11/17 03:57 Last Admin: 06/11/17 04:11 Dose: 1 mg Departure - Departure Disposition: Home, Routine, Self-Care Clinical Impression: Sciatica Qualifiers: Laterality: right Qualified Code(s): M54.31 - Sciatica, right side Condition: Good Instructions: Sciatica (ED), Lumbar Radiculopathy (ED) Additional Instructions: 1. Return to the emergency room if he develops worsening symptoms questions or concerns. This includes worsening pain. 2. Additionally please follow up with your primary care doctor. 3. If you're having significant pain you may take 2 tabs of her oxycodone for total of 10 mg. I would only do this few times and not regularly. Referrals: Lucas Cook MD [Primary Care Provider] - As per Instructions
[2017-06-11] MEDS ORDERED: HYDROmorphONE/DILAUDID 1 MG/ML INJ IVP ONE ×2 (03:56→04:46)
[2017-06-11 04:24] LABS: PLATELET COUNT 245 10^3/uL (150-400)
[2017-06-11 05:34] VITALS: BP 126/84; PULSE 74; RESP 18; TEMP 98.2
== END 2017-06-11 05:34 | disposition home or self-care (01) ==
DX: M54.31 Sciatica, right side (principal); I25.10 Atherosclerotic heart disease of native coronary artery without angina pectoris; B20 Human immunodeficiency virus [HIV] disease; Z87.891 Personal history of nicotine dependence; Z95.5 Presence of coronary angioplasty implant and graft
CPT/HCPCS: 96374; 96376; 99284; J1170

== ENCOUNTER → 2017-06-26 | Outpatient (CLI) | payer OTHER | LOC: FIMAGING 11:19 | PROVIDERS: ATTEND Physician Assistant Surgical | DX: M54.6 Pain in thoracic spine (principal); Z98.1 Arthrodesis status ==

== ENCOUNTER 2017-08-01 15:22 | Emergency (ER) | payer OTHER ==
[2017-08-01 15:29] VITALS: RESP 18
--- NOTE | 2017-08-01 15:53 | EDPHY ---
H & P Stated Complaint: Fell on Sun night;wants to get checked for bruising R side of body Time Seen by Provider: 08/01/17 15:40 HPI/ROS: Chief Complaint: Right chest wall pain HPI: 62-year-old male with a history of chronic back pain. Patient states that he fell out of bed 3 days ago landing on his right side. He initially had pain from his shoulder down to his hip. He has been applying ice with good result has been having persistent right anterior chest wall pain. He rolled over bed last night felt a crunching which she thought was abnormal. He has not had any shortness of breath but does have some pain at that site with deep inspiration. No cough. No fevers or chills. No nausea or vomiting. No abdominal pain. He has been taking ibuprofen in addition to the ice. ROS: 10 point Review of Systems is negative except as noted in the HPI. PMH: Chronic back pain, lumbar radiculopathy, HIV positive Social History: No smoking, no alcohol Family History: non-contributory Physical Exam: Gen: Awake, Alert, No Distress HEENT: Nose: no rhinorrhea Eyes: PERRLA, EOMI Mouth: Moist mucosa Neck: Supple, no JVD Chest: Reproducible anterior lateral right chest wall tenderness along the anterior axillary line blow ribs 6, lungs clear to auscultation Heart: S1, S2 normal, no murmur Abd: Soft, non-tender, no guarding Back: no CVA tenderness, no midline tenderness Ext: no edema, non-tender Skin: no rash Neuro: CN II-XII intact, Sensation grossly intact, Strength 5/5 in bilateral upper and lower extremities - Personal History Current Tetanus Diphtheria and Acellular Pertussis (TDAP): Yes Tetanus Vaccine Date: 2015 - Medical/Surgical History Hx Asthma: No Hx Chronic Respiratory Disease: No Hx Diabetes: No Hx Cardiac Disease: Yes Hx Renal Disease: Yes Hx Cirrhosis: No Hx Alcoholism: Yes Hx HIV/AIDS: Yes Hx Splenectomy or Spleen Trauma: No Other PMH: HIV, stents placed 2001 in [place] and [address]. Lambert, lumbar fusion January 20 2015, spinal cord stimulator 01/10/2017 - Social History Smoking Status: Former smoker Constitutional: Initial Vital Signs Temperature (C) 36.9 C 08/01/17 15:23 Heart Rate 86 08/01/17 15:23 Respiratory Rate 18 08/01/17 15:23 Blood Pressure 135/91 H 08/01/17 15:23 O2 Sat (%) 95 08/01/17 15:23 O2 Delivery Mode Room Air Allergies/Adverse Reactions: oxycodone HCl [From OxyContin] Allergy (Verified 08/01/17 15:23) Itching oxycodone HCl Allergy (Unknown, Uncoded 05/31/17 16:17) Itching escalith Allergy (Uncoded 05/29/17 13:35) Home Medications: Medication Instructions Recorded Clopidogrel Bisulfate [Plavix (*)] 75 mg PO DAILY 05/29/17 Dolutegravir Sodium [Tivicay] 10 mg PO 05/29/17 Emtricitabine/Tenofov Alafenam 1 each PO 05/29/17 [Descovy 200-25 mg Tablet] Esomeprazole Magnesium [Nexium] 05/29/17 Gabapentin [Neurontin 300 MG (*)] 05/29/17 [place] Carbonate [[place] 300 mg PO 05/29/17 Carbonate Cap 300 mg (*)] Medical Decision Making - Diagnostics Imaging Results: Imaging Impressions Chest X-Ray 08/01/17 15:50 Impression: Stable negative chest.. Imaging: I viewed and interpreted images myself ED Course/Re-evaluation: 62-year-old male with chest wall pain status post fall. No pneumothorax or atelectasis or infiltrate on chest x-ray. Will send him home with over-the- counter analgesia and incentive spirometry, follow up with primary care physician as an outpatient. Departure - Departure Disposition: Home, Routine, Self-Care Clinical Impression: Chest wall pain Condition: Good Instructions: Chest Wall Pain (ED) Additional Instructions: Continue alternating ibuprofen with acetaminophen as needed for pain. You may apply ice as needed for pain as well. Use the incentive spirometer device every 10 min while awake to prevent developing a pneumonia. Return to the emergency department for increasing shortness of breath, productive cough, fevers, chills, or any other concerns. Follow up with her primary care physician in 5-6 days for further evaluation. Referrals: Lucas Cook MD [Primary Care Provider] - As per Instructions
[2017-08-01 16:53] VITALS: BP 128/77; PULSE 77; TEMP 98.2; O2SAT 97
== END 2017-08-01 16:48 | disposition home or self-care (01) ==
LOC: EEVIPCON 15:22
DX: S29.9XXA Unspecified injury of thorax, initial encounter (principal); Z21 Asymptomatic human immunodeficiency virus [HIV] infection status; Z87.891 Personal history of nicotine dependence; W06.XXXA Fall from bed, initial encounter

== ENCOUNTER 2017-08-09 20:01 | Emergency (ER) | payer OTHER ==
[2017-08-09 20:09] VITALS: BP 139/83; PULSE 95; RESP 17; TEMP 97.9; O2SAT 94
--- NOTE | 2017-08-09 20:31 | EDPHY ---
H & P Stated Complaint: Leg and back pain. Source: Patient Exam Limitations: No limitations - Personal History Current Tetanus/Diphtheria Vaccine: Unsure Current Tetanus Diphtheria and Acellular Pertussis (TDAP): Unsure Tetanus Vaccine Date: 2015 - Medical/Surgical History Hx Asthma: No Hx Chronic Respiratory Disease: No Hx Diabetes: No Hx Cardiac Disease: Yes Hx Renal Disease: Yes Hx Cirrhosis: No Hx Alcoholism: Yes Hx HIV/AIDS: Yes Hx Splenectomy or Spleen Trauma: No Other PMH: HIV, stents placed 2001 in [place] [address] Lambert, lumbar fusion January 20 2015, spinal cord stimulator 01/10/2017 - Social History Smoking Status: Former smoker Time Seen by Provider: 08/09/17 20:09 HPI/ROS: HPI: This is a 6-year-old male presents with Chief Complaint: Bilateral lumbar pain and left posterior leg pain Location: Bilateral lumbar and left posterior leg Quality: Burning Duration: 1 week Signs and Symptoms: No bleeding, + radiation lumbar spine to posterior left knee, no numbness, no weakness, no tingling, no incontinence, no decreased range of motion, no swelling, + pain Timing: Acute on chronic Severity: Moderate Context: Medical history of lumbar fusion of L4-L5 January [address] Parker, spinal cord stimulator 01/10/2017 presents with complaints of accidentally falling out of bed onto his right side approximately 1 week ago and then several days later he started to developed bilateral lumbar bandlike burning pain that now radiates down his left posterior leg to his knee. He has never had left leg pain before; it is always on right. Patient has a follow up appointment with Neurosurgery at [facility] next Saturday for lumbar IKER. He completed a Medrol Dosepak approximately 2-3 weeks ago. He takes Neurontin 400 mg every day and reports no relief. He does have Flexeril at home but has not tried any for this particular pain. He is requesting only x-rays; 4 images; to evaluate for any "acute situation." He is ambulatory without deficit. Denies fever/urinary symptoms/incontinence. Modifying Factors: See above Comment: ROS: see HPI Constitutional: No fever, no chills, no weight loss Eyes: No blurred vision Respiratory: No shortness of breath, no cough Cardiovascular: No chest pain Gastrointestinal: No nausea, no vomiting no diarrhea Genitourinary: No dysuria Extremities: No myalgias Neurologic: No weakness, no numbness Skin: No rashes Hematologic: No bruising, no bleeding MEDICAL/SURGICAL/SOCIAL HISTORY: Medical history: HIV, stents placed [address] in [place] [address] Lambert, lumbar fusion January 20 2015, spinal cord stimulator 01/10/2017 Surgical history: Back surgery Social history: Retired. CONSTITUTIONAL: Extremely well-appearing elderly white male, awake and alert, no obvious distress HEENT: Atraumatic and normocephalic. NECK: supple, no midline tenderness, flexion 45 degrees, extension 45 degrees, right and left lateral flexion 45 degrees. No meningismus. Cardiovascular: Normal S1/S2, regular rate, regular rhythm, without murmur rub or gallop. PULMONARY/CHEST: Symmetrical and nontender. no crepitus. Clear to auscultation bilaterally. Good air movement. No accessory muscle usage. ABDOMEN: Soft, nondistended, nontender, no ecchymosis. PELVIC: no pain with rocking; bilateral hips flexion 125 degrees, extension 30 degrees, with no pain internal rotation and no pain external rotation. BACK: No midline tenderness, bilateral lower lumbar reproducible paraspinous muscle tenderness; no paraspinous spasm, deep tendon reflexes 2/2, no pain with straight leg raise; no pain with hip flexion bilaterally. Flexion/extension/ bilateral rotation is relatively good. Plantar flexion and dorsiflexion intact. Ambulatory without deficit. EXTREMITIES: 2/2 pulses, no deformities, no clubbing, no cyanosis or edema. NEUROLOGICAL: no focal neuro deficits. GCS 15. Light touch sensation intact. SKIN: Warm and dry, no erythema. no rash. Good capillary refill. (Zachary,Terra ) Constitutional: Initial Vital Signs Temperature (C) 36.6 C 08/09/17 20:04 Heart Rate 95 08/09/17 20:04 Respiratory Rate 17 08/09/17 20:04 Blood Pressure 139/83 H 08/09/17 20:04 O2 Sat (%) 94 08/09/17 20:04 O2 Delivery Mode Room Air Allergies/Adverse Reactions: oxycodone HCl [From OxyContin] Allergy (Verified 08/01/17 15:23) Itching oxycodone HCl Allergy (Unknown, Uncoded 05/31/17 16:17) Itching escalith Allergy (Uncoded 05/29/17 13:35) Home Medications: Medication Instructions Recorded Clopidogrel Bisulfate [Plavix (*)] 75 mg PO DAILY 05/29/17 Dolutegravir Sodium [Tivicay] 10 mg PO 05/29/17 Emtricitabine/Tenofov Alafenam 1 each PO 05/29/17 [Descovy 200-25 mg Tablet] Esomeprazole Magnesium [Nexium] 05/29/17 Gabapentin [Neurontin 300 MG (*)] 05/29/17 [place] Carbonate [[place] 300 mg PO 05/29/17 Carbonate Cap 300 mg (*)] Medical Decision Making ED Course/Re-evaluation: The patient is already managed by Neurosurgery at [facility] and has appointment next Saturday for lumbar IKER. Discussed CT imaging versus x-rays; patient prefers to start with x-ray films. Lumbar four view films ordered. Offered patient Decadron; muscle relaxer and he politely declined both of them. 2114: Patient is now requesting to speak with Dr. Caballero regarding his results and plan of care. Patient is requesting for right rib x-rays from Dr. Caballero. xray reviewed: Mildly displaced peripheral lateral right sixth rib fracture. No signs of hypoxia/respiratory distress/wheezing/pneumothorax. This patient was seen under the supervision of my secondary supervising physician. The patient was seen in conjunction with Dr. Caballero, who saw and evaluated the patient. Patient's presentation, labs/imaging, treatment and plan of care were discussed with secondary supervising physician. (Gabriela Sharma) Differential Diagnosis: Back pain including but not limited to muscular pain, herniated disc, spine fracture, intra-abdominal causes and urinary tract infection. (Gabriela Sharma) Other Provider: Assessed patient in conjunction with RANDOLPH Sharma. This patient has a complicated medical history of chronic pain who is here primarily stating, "I'm looking for reassurance I can manage at home" in addition to specific rib x-ray series due to ongoing chest wall pain. He says he has ample pain medication available at home to treat his complaints, he is here instead for a "prognosis about my rib pain" even though he says he knows it won't change the management of his pain. He also mentions chronic leg radiculopathy that he is followed at [facility] for. He has normal plantar and dorsiflexion on exam and I do not have a high suspicion for neurologic emergency related to his back pain particularly given nothing acute on his recent back MRI. I do not appreciate crepitus or any trauma along his chest wall. Plan for rib x-rays and discharge home. He agrees with this plan. (Usama Caballero) Departure - Departure Disposition: Home, Routine, Self-Care Clinical Impression: Lumbar radiculopathy, Fracture of rib of right side with routine healing Condition: Good Instructions: Lumbar Radiculopathy (ED), Degenerative Disc Disease (ED) Additional Instructions: Please keep your follow-up appointment with [facility] for lumbar IKER injection next Saturday. X-rays were reviewed and show right sixth rib fracture; stable in nature. Referrals: Lucas Cook MD [Primary Care Provider] - As per Instructions [facility],. [Marketing Rep] - As per Instructions
== END 2017-08-09 22:14 | disposition home or self-care (01) ==
DX: S22.31XD Fracture of one rib, right side, subsequent encounter for fracture with routine healing (principal); B20 Human immunodeficiency virus [HIV] disease; Z87.891 Personal history of nicotine dependence; W06.XXXD Fall from bed, subsequent encounter

== ENCOUNTER 2017-11-13 16:00 | Inpatient (IN) | payer OTHER ==
[2017-11-13] MEDS ORDERED: NS 250 ML IV ONE (16:12)
[2017-11-13] MEDS ORDERED: ASPIRIN 81 MG CHEWABLE TAB PO ONE (16:12)
--- NOTE | 2017-11-13 16:15 | CPEKG ---
Heart Rate: 66 RR Interval: 909 P-R Interval: 188 QRSD Interval: 98 QT Interval: 412 QTC Interval: 432 P [place]: 51 QRS [place]: -2 T Wave [place]: 193 EKG Severity - ABNORMAL ECG - EKG Impression: SINUS RHYTHM EKG Impression: PROBABLE LEFT ATRIAL ABNORMALITY EKG Impression: ABNORMAL T, CONSIDER ISCHEMIA, ANT-LAT LEADS Electronically Signed By: Janes Smith 13-Nov-2017 21:10:39
[2017-11-13] MEDS ORDERED: FAMOTIDINE 20 MG/NACL 50 ML IV ONE (16:16)
--- NOTE | 2017-11-13 16:17 | EDPHY ---
H & P Time Seen by Provider: 11/13/17 16:02 HPI/ROS: HPI Chest pain. 62-year-old male by ambulance from his primary care physician's office. This patient reports that he has had intermittent chest pain which she describes as a burning pressure mid substernal ongoing for 3 days now. He reports that this sensation is worse when he lays flat. It is better when he is more upright. He has been sleeping in a recliner because of this pain. He saw his primary care physician today who did an EKG which had some concerning findings. He was sent from his primary care physician's office to the emergency department for evaluation. He was given [address] the [address] to the emergency department and had complete relief of his chest pain from that. ROS: Constitutional: No fever, no chills. No weakness. Eyes: No discharge. No changes in vision. ENT: No sore throat. No nasal congestion or rhinorrhea. Respiratory: No cough. No shortness of breath. Cardiac: As above, no palpitations. Gastrointestinal: No abdominal pain, no vomiting, no diarrhea. Genitourinary: No hematuria. No dysuria or increased frequency with urination. Musculoskeletal: No back pain. No neck pain. No myalgias or arthralgias. Skin: No rashes. Neurological: No headache. No focal weakness or altered sensation. Past medical history: HIV, coronary artery disease with 10 stents placed, last stent placed in 2009. 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 Patient also has a history of a lumbar fusion. Social history: Here by himself. Former smoker. History of alcohol abuse. Physical Exam: General Appearance: Alert, pleasant 62-year-old male, no distress. Moderately obese habitus. This patient is responding to questions appropriately and in full sentences. This patient appears well-hydrated and well-nourished. Eyes: Pupils equal and round no pallor or injection. No lid edema, erythema or injection. Respiratory: There are no retractions, lungs are clear to auscultation anteriorly with good air movement bilaterally. Cardiovascular: Regular rate and rhythm. No murmur appreciated. Gastrointestinal: Abdomen is soft and nontender, no masses, bowel sounds normal. No focal tenderness at McBurney's point. No Venegas sign. Neurological: Motor sensory function is grossly intact. Cranial nerves are normal. Gait is normal. Skin: Warm and dry, no rashes. Musculoskeletal: Neck is supple and nontender. Extremities are symmetrical. All joints range without pain or impingement. Psychiatric: No agitation. No depression. Database: EKG: EKG time is 4:13 p.m.; EKG shows a narrow complex normal sinus rhythm with a ventricular rate of 66. The CA, QRS, QT intervals are within normal limits. T- wave inversions noted in V4 through V6. There are no ST-T wave changes indicative of acute injury pattern. No evidence of right heart strain. EKG compared to previous from April of 2017. Artifact noted in lateral precordial leads. Some T-wave inversion but not as pronounced. Interpreted by me. EKG 2. Time 5:07 p.m.. This EKG is essentially unchanged from above. Interpreted by me. Imaging: Chest x-ray AP portable: Stable negative chest. Compared to previous from 2016. Interpreted by me. Procedures: Emergency department course: Vital signs reviewed. Patient given 324 mg of chewed aspirin. Chest pain-free after nitroglycerin on transport. EKG obtained and reviewed by myself. 4:50 p.m., patient's troponin is elevated at 0.89. He is currently chest pain- free. Results of his diagnostic workup discussed with him. EKG will be repeated shortly and echocardiogram obtained. I discussed giving the patient IV heparin. He does not want this at this time. Cardiology paged. I discussed admission with him. He endorses. 5:00 p.m., spoke with hospitalist Dr. Brooks. Case discussed in detail with him. He accepts the patient for admission. Still waiting on Cardiology. 5:10 p.m., spoke with Dr. Palacios of the cardiology service. He agrees with IV heparin. He will see the patient in the emergency department shortly. 5:30 p.m., Dr. Cecilia Palacios at the bedside. The patient agrees with IV heparin. The patient's remaining emergency department course under my care has been uneventful. He has remained chest pain-free. He was admitted to telemetry in stable condition. Differential Diagnosis: The differential diagnosis on this patient includes but is not limited to acute coronary syndrome, GERD. Pulmonary embolism, pericarditis, myocarditis, pneumonia, aortic dissection unlikely. This represents a partial list of diagnoses considered. These considerations are based on history, physical exam , past history, reassessment and diagnostic testing. Smoking Status: Former smoker Constitutional: Initial Vital Signs Temperature (C) 36.7 C 11/13/17 16:04 Heart Rate 92 11/13/17 16:04 Respiratory Rate 16 11/13/17 16:04 Blood Pressure 98/67 L 11/13/17 16:04 O2 Sat (%) 91 L 11/13/17 16:04 O2 Delivery Mode Room Air O2 (L/minute) 2 Allergies/Adverse Reactions: oxycodone HCl [From OxyContin] Allergy (Verified 11/13/17 16:04) Itching oxycodone HCl Allergy (Unknown, Uncoded 11/13/17 16:04) Itching escalith Allergy (Uncoded 11/13/17 16:04) Home Medications: Medication Instructions Recorded Clopidogrel Bisulfate [Plavix (*)] 75 mg PO HS 05/29/17 Emtricitabine/Tenofov Alafenam 1 each PO HS 05/29/17 [Descovy 200-25 mg Tablet] Aspirin EC [Aspirin EC 325 mg (*)] 325 mg PO HS 11/13/17 Atorvastatin Calcium [Lipitor 40 80 mg PO HS 11/13/17 mg (*)] Esomeprazole Mag Trihydrate 80 mg PO HS 11/13/17 [Nexium] Fluticasone Nasal [Flonase Nasal 2 sprays [place] HS 11/13/17 [place] (RX)] Gabapentin [Neurontin 300 MG (*)] 600 mg PO HS 11/13/17 Levocetirizine Dihydrochloride 5 mg PO HS 11/13/17 [Xyzal] [place] Carbonate 150 mg PO HS 11/13/17 [place] Carbonate [[place] 300 mg PO HS 11/13/17 Carbonate Cap 300 mg (*)] Ondansetron Odt [Zofran Odt 4 mg 4 mg PO TID PRN 11/13/17 (*)] Tivicay 50 mg PO HS 11/13/17 Medical Decision Making - Data Points Laboratory Results: Laboratory Results 11/13/17 16:17 11/13/17 16:17 Medications Given: Aspirin Buffered (Aspirin Ec) 325 mg PO DAILY THOMAS Stop: 05/13/18 08:59 Last Admin: 11/14/17 07:57 Dose: 325 mg Atorvastatin Calcium (Lipitor) 80 mg PO [facility] Stop: 05/12/18 20:59 Last Admin: 11/13/17 20:50 Dose: 80 mg Cetirizine HCl (Zyrtec) 10 mg PO [facility] Stop: 05/12/18 20:59 Last Admin: 11/13/17 20:53 Dose: 10 mg Clopidogrel Bisulfate (Plavix) 75 mg PO [facility] Stop: 05/12/18 20:59 Last Admin: 11/13/17 20:49 Dose: 75 mg Emtricitabine/Tenofovir (Truvada) 1 tab PO [facility] Stop: 05/12/18 21:44 Last Admin: 11/13/17 22:50 Dose: 1 tab Fluticasone Propionate (Flonase Nasal [place]) 2 sprays [place] [facility] Stop: 05/12/18 20:59 Last Admin: 11/13/17 21:01 Dose: Not Given Gabapentin (Neurontin) 600 mg PO [facility] Stop: 05/12/18 20:59 Last Admin: 11/13/17 20:48 Dose: 600 mg [place] Carbonate ([place] Carbonate) 450 mg PO [facility] Stop: 05/12/18 20:59 Last Admin: 11/13/17 20:58 Dose: 450 mg Metoprolol Tartrate (Lopressor) 12.5 mg PO BID ON LICENSE OF [facility] Stop: 05/12/18 20:59 Last Admin: 11/14/17 08:05 Dose: Not Given Miscellaneous Medication (Emtricitabine/Tenofov Alafenam [Descovy 200-25 Mg Tablet]) 1 each PO [facility] Stop: 05/12/18 20:59 Last Admin: 11/13/17 22:51 Dose: Not Given Miscellaneous Medication (Tivicay) 50 mg PO [facility] Stop: 05/12/18 20:59 Last Admin: 11/13/17 22:51 Dose: Not Given Nitroglycerin (Nitrostat) 0.4 mg SL Q5M PRN PRN Reason: Chest Pain Stop: 05/12/18 17:35 Last Admin: 11/14/17 07:50 Dose: 0.4 mg Ondansetron HCl (Zofran Odt) 4 mg PO Q4HRS PRN PRN Reason: Nausea/Vomiting, Use 1st Stop: 05/12/18 17:31 Last Admin: 11/14/17 04:35 Dose: 4 mg Pantoprazole Sodium (Protonix) 80 mg PO HS THOMAS Stop: 05/12/18 20:59 Last Admin: 11/13/17 20:52 Dose: 40 mg Raltegravir (Isentress) 400 mg PO BID THOMAS Stop: 05/12/18 21:44 Last Admin: 11/13/17 22:49 Dose: 400 mg Discontinued Medications Aspirin (Aspirin) 324 mg PO EDNOW ONE Stop: 11/13/17 16:13 Last Admin: 11/13/17 17:10 Dose: Not Given Heparin Sodium (Porcine) (Heparin Injection) 0 unit IVP EDNOW ONE PRN Reason: Protocol Stop: 11/13/17 16:53 Last Admin: 11/13/17 18:16 Dose: 5,000 unit Sodium Chloride (Ns) 250 mls @ 1,000 mls/hr IV EDNOW ONE PRN Reason: Protocol Stop: 11/13/17 16:26 Last Admin: 11/13/17 16:32 Dose: 250 mls Famotidine/Sodium Chloride (Pepcid 20 Mg (Premix)) 50 mls @ 200 mls/hr IV EDNOW ONE Stop: 11/13/17 16:30 Last Admin: 11/13/17 16:32 Dose: 50 mls Heparin Sodium (Porcine) (Heparin 50 Units/Ml (Premix)) 500 mls @ 0 mls/hr IV EDNOW ONE; Per Protocol PRN Reason: Protocol Stop: 11/13/17 16:53 Last Admin: 11/13/17 18:20 Dose: 500 mls Pantoprazole Sodium (Protonix) 40 mg IVP DAILY THOMAS Stop: 05/12/18 17:44 Last Admin: 11/13/17 18:44 Dose: 40 mg Departure - Departure Disposition: [facility] Acute Clinical Impression: Chest pain, Acute coronary syndrome Condition: Good
[2017-11-13 16:23] LABS: PLATELET COUNT 265 10^3/uL (150-400)
[2017-11-13 16:31] LABS: CREATINE KINASE 251 IU/L (0-224)
[2017-11-13 16:31] LABS: INR 0.97 (0.83-1.16); PROTIME(PATIENT) 13.1 SEC (12.0-15.0)
[2017-11-13] MEDS ORDERED: HEPARIN 10,000 UNIT/10 ML MDV (1,000 UNIT/ML) IVP ONE ×2 (16:52→19:26)
[2017-11-13] MEDS ORDERED: HEPARIN/DEXTROSE 500 ML IV ONE (16:52)
--- NOTE | 2017-11-13 17:09 | CPEKG ---
Heart Rate: 53 RR Interval: 1132 P-R Interval: 184 QRSD Interval: 108 QT Interval: 444 QTC Interval: 417 P [place]: 19 QRS [place]: -18 T Wave [place]: 165 EKG Severity - ABNORMAL ECG - EKG Impression: SINUS RHYTHM EKG Impression: LEFT ATRIAL ABNORMALITY EKG Impression: ABNORMAL T, CONSIDER ISCHEMIA, ANT-LAT LEADS Electronically Signed By: Janes Smith 13-Nov-2017 21:10:39
[2017-11-13] MEDS ORDERED: ONDANSETRON DISINTEGRATING 4 MG TAB PO PRN ×2 (17:32→19:29)
[2017-11-13] MEDS ORDERED: oxyCODONE IR 5 MG TAB PO PRN (17:32)
[2017-11-13] MEDS ORDERED: ONDANSETRON 4 MG/2 ML VIAL IVP PRN (17:32)
[2017-11-13] MEDS ORDERED: PANTOPRAZOLE SODIUM 40 MG VIAL IVP SCH (17:45)
[2017-11-13] MEDS ORDERED: HEPARIN 10,000 UNIT/10 ML MDV (1,000 UNIT/ML) IVP PRN (19:26)
[2017-11-13] MEDS ORDERED: HEPARIN/DEXTROSE 500 ML IV SCH (19:30)
[2017-11-13] MEDS: NITROGLYCERIN 0.4 MG BTL SL PRN (20:30)
[2017-11-13] MEDS: GABAPENTIN 300 MG CAP PO SCH (20:48)
[2017-11-13] MEDS: ATORVASTATIN CALCIUM 40 MG TAB PO SCH (20:50)
[2017-11-13] MEDS: PANTOPRAZOLE SODIUM 40 MG TAB PO SCH (20:52)
[2017-11-13] MEDS: CETIRIZINE 10 MG TAB PO SCH (20:53)
[2017-11-13] MEDS: METOPROLOL TARTRATE 25 MG TAB PO SCH (20:55)
[2017-11-13] MEDS: LITHIUM CARBONATE 300 MG TAB PO SCH (20:58)
[2017-11-13] MEDS ORDERED: LITHIUM CARBONATE 150 MG PO SCH (21:00)
[2017-11-13] MEDS ORDERED: CLOPIDOGREL BISULFATE 75 MG TAB PO SCH (21:00)
[2017-11-13] MEDS: FLUTICASONE NASAL 120 SPRAYS/16 GM MDI EACHNARE SCH (21:01)
--- NOTE | 2017-11-13 21:26 | GHP ---
[f rep st] HISTORY AND PHYSICAL DATE OF ADMISSION: 11/13/2017 CHIEF COMPLAINT: Chest pain. 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 He has a history of coronary artery disease, has received 10 stents, the last was ab out 8 years ago. He is followed by Dr. Lambert. He has had 3 days of chest pain, which he describe d as a burning pain, worse when he lays down. It was improved with nitroglycerin here. His previous angina was more typical exertional, and pressure in nature. He also has a history of GERD, as well as what he reports as gastric ulcers. He is noted to have a troponin of 0.8, as well as EKG changes. He has been somewhat resistant to heparin, and has requested an occult blood stool prior to excepti ng heparin. PAST MEDICAL/SURGICAL HISTORY: 1. HIV: Well controlled. 2. Coronary artery disease, status post 10 stents. 3. History of GERD. 4. Bipolar type 2. 5. Hyperlipidemia. 6. Osteoporosis. 7. Chronic bronchitis. 8. Anemia. 9. Obesity. 10. Chronic kidney disease, baseline creatinine about 1.5. MEDICATIONS: Please see medication reconciliation. ALLERGIES: Oxycodone. FAMILY HISTORY: Reviewed and noncontributory. 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 He has done extensive travel. He has a history of polysubstance abuse, of which he is in remission. REVIEW OF SYSTEMS: A 10-point review of systems is conducted and is negative, except per HPI. ADVANCED DIRECTIVES: He would like to be full code. He would like his father, Ed, to be his MD LAWRENCE, though he has not appointed him via paperwork. PHYSICAL EXAMINATION: VITAL SIGNS: Blood pressure 98/67, heart rate 92, respiration rate 16, satura ting 91% on room air, temperature is 36.7. GENERAL: Mr. Jaramillo is a pleasant man, who is resting co mfortably, moving slowly because of some right leg radiculopathy, but otherwise in no acute distress. HEENT: Shows him to be normocephalic, atraumatic. CARDIOVASCULAR: Regular rate and rhythm. He h as a 2/6 systolic murmur which radiates to the right upper quadrant. He has no elevated JVD. Trace bilateral lower extremity edema. PULMONARY: Lungs clear to auscultation bilaterally. ABDOMEN: Sof t, nontender, nondistended. SKIN: No rash. : No [place]. NEUROLOGIC: Alert and oriented x3. He is moving all extremities. PSYCHIATRIC: Normal mood and affect. RECTAL: A small amount of brown s tool in the rectal vault. There was no caryn blood. No melena. LABS: Hemoglobin is 11.4, INR 0.97, creatinine is 1.5, troponin 0.89. DATA: 1. I discussed this with Dr. Palacios. Will admit to PCU. Place on heparin if he will allow this. 2. Chest x-ray, which I personally viewed and interpreted, shows mild cardiomegaly. 3. EKG which I personally viewed and interpreted, shows ischemic appearing T-waves in V4, V5, and V6 . These were not present on his EKG from 2015. IMPRESSION AND PLAN: 1. Non-ST elevation myocardial infarction: Presentation is consistent with this. Mr. Jaramillo is obed ewhat loath to accept this. He does have a history of coronary artery disease, status post multiple stents followed by Dr. Lambert. I have strongly recommended aspirin, as well as heparin overnight. He will allow heparin if he has a negative FOBT. I have given him nitroglycerin p.r.n. He has an a llergy listed to oxycodone, thus I will not provide narcotics for his ongoing chest pain, which is pr actically resolved at this point. 2. History of human immunodeficiency virus: This has been well controlled. 3. Gastroesophageal reflux disease: I will give him a dose of Protonix, given his heparin as well a s aspirin requirement at this time. 4. Anemia: He is approximately at his baseline. /[id number]/MODL
[2017-11-13] MEDS ORDERED: EMTRICITABINE/TENOFOVIR 200MG/300MG TAB PO SCH (21:45)
[2017-11-13] MEDS: RALTEGRAVIR 400 MG TAB PO SCH (22:49)
[2017-11-13] MEDS: Emtricitabine/Tenofov Alafenam [Descovy 200-25 Mg Tablet] PO SCH (22:51)
[2017-11-14] MEDS: NITROGLYCERIN 0.4 MG BTL SL PRN ×4 (04:14→13:25)
--- NOTE | 2017-11-14 05:03 | GCON ---
[f rep st] CONSULTATION I was asked to see this patient urgently by the emergency room physician. The patient is a 62-year-o ld male with past medical history significant for coronary artery disease and multiple percutaneous i nterventions by my partner, London Lambert. He is presenting with a 3-day history of chest pain. The chest pain is somewhat atypical for coronar y artery disease in that it has been worse when laying down. However, it was relieved in the emergen cy department with 1 sublingual nitroglycerin. Moreover, his troponin level was elevated. Therefore , I was asked to see the patient. I visited with the patient in the emergency department. Dr. Howard Brooks was present in the room at the time of my interview with the patient. Patient reports that at this time his chest pain has completely resolved and he feels well. He denies any shortness of breath. He has not had any sustai kera palpitations or syncope. He denies any orthopnea, PND, or pedal edema. REVIEW OF SYSTEMS: Besides above-noted findings, 10-point review of systems is negative. FAMILY HISTORY: Not relevant to this examination. SOCIAL HISTORY: Not relevant to this examination. PHYSICAL EXAMINATION: VITAL SIGNS: Blood pressure is 98/67, heart rate 92 beats per minute. Oxygen saturation 91% on room air. Temperature 36.7. Telemetry shows normal sinus rhythm. GENERAL: He i s adult white male, does not appear to be in any acute distress. LUNGS: Clear to auscultation bilat erally. CVS: S1, S2. A regular rate and rhythm with soft systolic murmur heard at the right upper sternal border. ABDOMEN: No tenderness, guarding, or rigidity. EXTREMITIES: No clubbing, cyanosis , or edema. LABS: Reviewed. On arrival, hemoglobin is 11.4, white count 7.5, MCV 90.9, platelet count 265. Coa gs are within normal limits. Chemistry is significant for a creatinine of 1.5, which he reports is a t baseline. Glucose of 106. CK 251, CK-MB 9.05, troponin of 0.89. EKG was reviewed. This shows normal sinus rhythm with T-wave inversions in leads V3 to V6 and ST dep ression in leads V3 to V4. There is an EKG in our system from 2017 that shows similar but less prono unced ST and T-wave changes in the lateral leads, however, there is noise in leads V4 and V5 on the o ld EKG and therefore an accurate comparison cannot be made. EKG from 2015 showed normal sinus rhythm without any ST or T-wave changes. ASSESSMENT AND PLAN: This is a 62-year-old male with past medical history significant for multiple p ercutaneous interventions to his left anterior descending coronary artery, erosive gastritis, who is presenting with a 3-day history of retrosternal chest discomfort reminiscent of his cardiac symptoms. This was relieved with sublingual nitroglycerin. He has lateral ST and T-wave changes with a posit alex troponin. He meets criteria for [id number] myocardial infarction. I have recommended initiation of heparin given his [id number] [place] and above findings. Dr. Shahzad Brooks is going to perform a rectal examination prior to this to confirm that the patient is not having significant GI bleed. He will be resumed on his beta luis therapy. I have reviewed options with him including medical management only, coronary angiography. He prefers to move forward with coronary angiography. This has been scheduled with his director of convention services, Dr. Hosea Lambert, for tomorrow morning. I have spoken on the phone with Dr. Lambert and he agrees with th is plan. He is aware of the patient's renal insufficiency and anemia. Total time spent with the patient was 30 minutes, more than 50% of which was counseling. /[id number]/MODL
[2017-11-14 06:05] LABS: PLATELET COUNT 238 10^3/uL (150-400)
[2017-11-14 06:18] LABS: INR 1.1 (0.83-1.16); PROTIME(PATIENT) 14.4 SEC (12.0-15.0)
[2017-11-14] MEDS: ASPIRIN EC 325 MG TAB PO SCH (07:57)
[2017-11-14] MEDS: RALTEGRAVIR 400 MG TAB PO SCH ×2 (07:58→11:19)
--- NOTE | 2017-11-14 08:02 | PDHPUP ---
History & Physical Update H&P update statement: This history and physical update is based on an assessment of the patient which was completed after admission or registration (within 24 hours), but prior to the surgery/procedure. H&P update: H&P reviewed & patient examined, no change in patient's condition since H&P completed
--- NOTE | 2017-11-14 08:02 | PDPROPOC ---
Sedation Plan of Care Sedation Plan of Care: vital signs stable, mental status noted, patient educated of risks, benefits, alternatives, patient can tolerate sedation ASA Classification: ASA 2 Planned drugs: fentanyl, midazolam Mallampati Score: Class 1 Mallampati Reference Image: Patient passed 3-3-2 rule?: Yes
[2017-11-14] MEDS: METOPROLOL TARTRATE 25 MG TAB PO SCH ×2 (08:05→21:33)
[2017-11-14] MEDS ORDERED: LIDOCAINE 1% 300 MG/30 ML SDV ONE (08:16)
[2017-11-14] MEDS ORDERED: IOPAMIDOL (ISOVUE-370) 150 ML BTL IV ONE (08:17)
[2017-11-14] MEDS ORDERED: HEPARIN 10,000 UNIT/10 ML MDV (1,000 UNIT/ML) ONE (08:17)
[2017-11-14] MEDS ORDERED: fentaNYL 100 MCG/2 ML INJ ONE (08:17)
[2017-11-14] MEDS ORDERED: VERAPAMIL 5 MG/2 ML VIAL ONE (08:17)
[2017-11-14] MEDS ORDERED: MIDAZOLAM 2 MG/2 ML VIAL ONE (08:17)
[2017-11-14] MEDS ORDERED: ATROPINE SULFATE 1 MG/10 ML SYR IVP PRN (09:26)
--- NOTE | 2017-11-14 09:30 | PDDXCAT ---
Diagnostic Cath Note - . Date: 11/14/17 Band Saw Operator: Fausto Indication: CCC Class III and IV angina on medical treatment - Procedure Access: right groin Procedure: left heart catheterization, coronary angiography, left ventriculogram - Materials Left Heart Cath size: 5F Left Heart Cath materials: standard multipack (JL4, JR4, pigtail) - Findings-Left Heart Catheterization LM: Unobstructed LAD: 85% proximal stenosis. Vessel is diffusely diseased with 70% InStent restenosis in the midportion. The principal diagonal has 90% occlusion distal to prior stenting. LCX: Proximal stent widely patent. 100% occlusion distally with [id number] filling of the distal obtuse marginal branch RCA: Dominant vessel: Posterior descending coronary artery is occluded proximally with right to right collaterals. Ramus: Stents widely patent EDP: 15 mm of mercury LVEF: 50% with inferior akinesis Complications: None Estimated blood loss: <50ml Closure method: Angioseal Assessment: Severe three-vessel coronary artery disease with recent occlusion of the posterior descending coronary artery. Ejection fraction 50% with inferior akinetic segment. Plan: Recommend coronary bypass grafting with mammary artery to the LAD revascularization of the principal diagonal and posterior descending coronary artery plus or minus obtuse marginal branches. If patient is felt to not be an adequate candidate. Considerations for high risk PCI of the proximal LAD diagonal with attempted reopening the distal right coronary. Patient Problems: Problems Problem Status Onset Low back pain Acute Chest pain Acute
--- NOTE | 2017-11-14 09:33 | SOAPPROG ---
[facility] Progress Note Assessment/Plan: Assessment: 1. Acute coronary syndrome with elevation in troponin unstable chest pain. 2. Severe three-vessel coronary disease by angiography. 3. HIV/hepatitis B. 4. Hyperlipidemia 5. Degenerative spinal disease. Procedures: Left heart catheterization coronary ventricular angiography 2017. Echocardiogram 11/14/2017. 11/14/17 09:30 Ongoing resting chest pain again this morning. Troponins are continuing to elevate. Diagnostic coronary angiogram reveals severe 3 vessel disease with an inferior scar. Ejection fraction 50%. Recommendations are for anticoagulation. Complete revascularization by bypass surgery. Continued aggressive secondary prevention. Subjective: Chest pain this morning No PND orthopnea. No palpitations syncope or near syncope. Objective: Vital Signs Temp Pulse Resp BP Pulse Ox 36.7 C 66 16 99/68 L 98 11/14/17 07:45 11/14/17 07:45 11/14/17 04:11 11/14/17 07:45 11/14/17 07:45 Laboratory Results 11/14/17 05:33 11/14/17 05:33 11/13/17 11/14/17 11/15/17 05:59 05:59 05:59 Intake Total 767 Balance 767 PT 14.4 SEC (12.0-15.0) 11/14/17 05:33 INR 1.10 (0.83-1.16) 11/14/17 05:33 Physical Exam - Physical Exam General Appearance: no apparent distress EENT: normal ENT inspection Neck: non-tender, full range of motion Respiratory: chest non-tender, lungs clear, normal breath sounds Cardiac/Chest: normal peripheral pulses, regular rate, rhythm, No JVD Abdomen: normal bowel sounds, non-tender, soft Skin: warm/dry Lymphatic: no adenopathy Neuro/Psych: alert, normal mood/affect, oriented x 3 ICD10 Worksheet Patient Problems: Problems Problem Status Onset Chest pain Acute Low back pain Acute
--- NOTE | 2017-11-14 10:16 | ECHO ---
[email or web address] [address] [address] Main: [phone] Fax: Transthoracic Echocardiogram Name: GAIL STOUT MR#: [id number] Study Date: 11/14/2017 Study Time: 07:57 AM Date of : 1955 Age: 62 year(s) Height: 170.2 cm (67 in.) Weight: 83.92 kg (185 lb.) BSA: 1.96 m2 Gender: Male Examination: Chest Pain Indication: Chest Pain Image Quality: Adequate Contrast: Requested by: Janes Rizvi BP: 90 mmHg/68 mmHg Heart Rate: Rhythm: Indication: Chest Pain Procedure Staff Ethics Officer: Eloina Hair RDCS Reading Physician: London Lambert MD Requesting Provider: Conclusions: No pericardial effusion. Ejection fraction 65%. Mild mitral regurgitation. Normal left atrial size. Right ventricular systolic pressure 25 mm of mercury. Measurements: Chambers Valvular Assessment AV/MV Valvular Assessment TV/PV Normal Normal Normal Name Value Range Name Value Range Name Value Range Ao Dalia (2D): 3.3 cm (1.4 cm-2.6 AV meanP mmHg ( - ) TR Vmax: 2.21 mm/s ( - ) cm) BIJAN (VTI): 1.9 cm ( - ) TR PGmax: 20 mmHg ( - ) IVSd (2D): 1.2 cm (0.6 cm-1.1 MV E Vmax: 0.67 m/s ( - ) syst. PAP: 25 mmHg ( - ) cm) MV A Vmax: 0.80 m/s ( - ) PV Vmax: 1.02 m/s (0.6 m/s-0.9 LVDd (2D): 4.7 cm (4.2 cm-5.9 MV E/A: 0.84 ( - ) m/s) cm) MV PHT: 0.056 s ( - ) PV PGmax: 4 mmHg ( - ) LVDs (2D): 3.0 cm (2.1 cm-4 cm) MVA (PHT): 3.9 s ( - ) LVPWd (2D): 1.2 cm (0.6 cm-1 cm) LVOTd 2.1 cm 2.1 cm mm LVEF (BP): 65 % (>=55 %) RVDd(2D): 3.2 cm (1.9 cm-3.8 cmmm) Continued Measurements: Chambers Valvular Assessment AV/MV Valvular Assessment TV/PV Name Value Name Value Name Value LADs: 3.3 cm MV DecTime: 204 m/s CVP (est.): 5 mmHg LADs Lon.3 cm MV E' Septal: 0.05 m/s LA Area: 16.6 cm2 MV E/E' Septal: 12.50 LA Volume: 44 ml MV E/E' Lateral: 8.40 Patient: GAIL STOUT Study Date: 11/14/2017 Page 1 of 2 07:57 AM LA Volume Index: 22.4 ml/m2 RA Area: 20.5 cm2 Additional Vessels Name Value Ao Ascendin.7 cm Inferior Vena Cava: 1.4 cm Findings: Left Ventricle: Normal size left ventricle. No LV hypertrophy. Normal global systolic LV function. EF is 65 %. No regional wall motion abnormality. Diastolic dysfunction is present. . Right Ventricle: Normal size right ventricle. Normal RV function. Left Atrium: The left atrium is normal in size. Right Atrium: The right atrium is normal in size. Mitral Valve: The mitral valve is normal in appearance and function. Mild mitral valve regurgitation is present. No mitral stenosis is present. Aortic Valve: The aortic valve is normal in appearance and function. Aortic sclerosis is present. There is no aortic valve regurgitation. No aortic valve stenosis is present. Tricuspid Valve: The tricuspid valve is normal in appearance and function. Trivial tricuspid valve regurgitation. Right ventricular systolic pressure measures 25mmHg. The pulmonary artery pressure is normal. Pulmonic Valve: The pulmonic valve is normal in appearance and function. There is no pulmonic regurgitation seen. Aorta: The aorta is normal. Normal size aortic root measuring 3.3 cm. Normal size ascending aorta measuring 3.7 cm. IVC: The IVC is normal sized. Pericardium: No pericardial effusion. Respiratory variation is less than 25%. No pleural effusion. (No Signature Object) Patient: GAIL STOUT Study Date: 11/14/2017 Page 2 of 2 07:57 AM [id number]
--- NOTE | 2017-11-14 10:59 | PDMN ---
Medical Necessity Medical necessity: Patient meets inpatient criteria per physician note and MCG M -230 PR (history of 3 days of chest pain, extensive history of CAD w/stents x 10 ; NSTEMI per positive troponins; anticipated LOS > 2 midnights for ongoing cardiac care, including Heparin IV gtt.)
--- NOTE | 2017-11-14 11:34 | HOSPPROG ---
Hospitalist Progress Note Assessment/Plan: Multi-vessel CAD presenting with NSTEMI - Angiogram this am- multi-vessel dz, needs CABG -heparin drip -cardiac surgery to eval -NPO for now HIV - resume home meds Lumbar radiculopathy - prior back surgeries -cont gabapentin, ok with additional doses of 100-200 mg prn per pt request GERD - cont PPI Full code Dispo - cont inpt Subjective: Pt feels fair. He has some chest pain. No SOB. Not diaphoretic. Wants to eat. Objective: Vital Signs Temp Pulse Resp BP Pulse Ox 36.7 C 66 16 99/68 L 98 11/14/17 07:45 11/14/17 07:45 11/14/17 04:11 11/14/17 07:45 11/14/17 07:45 Laboratory Results 11/14/17 05:33 11/14/17 05:33 11/13/17 11/14/17 11/15/17 05:59 05:59 05:59 Intake Total 767 Balance 767 PT 14.4 SEC (12.0-15.0) 11/14/17 05:33 INR 1.10 (0.83-1.16) 11/14/17 05:33 - Physical Exam Constitutional: no apparent distress Eyes: PERRL Ears, Nose, Mouth, Throat: moist mucous membranes Cardiovascular: regular rate and rhythym Respiratory: no respiratory distress, clear to auscultation Gastrointestinal: normoactive bowel sounds, soft, non-tender abdomen Skin: warm Musculoskeletal: full muscle strength Neurologic: AAOx3 Psychiatric: interacting appropriately ICD10 Worksheet Patient Problems: Problems Problem Status Onset Acute coronary syndrome Acute Chest pain Acute Low back pain Acute
--- NOTE | 2017-11-14 14:11 | ASMTCASEMG ---
Living Arrangements What is your living Answers: Alone arrangement? Who do you live with? Type Of Residence What kind of residence do Answers: House you live in? Discharge Plan Comments Coordination Status Comments Notes: Pt is a 62 y/o man admitted for ACS. 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 Pt went to the medical laboratory scientist today and requires an open heart. Needs are TBD at this time. CM to follow. Plan: TBD Date Signed: 11/14/2017 02:10 PM Electronically Signed By:SAVANAH Daniel
[2017-11-14] MEDS ORDERED: GABAPENTIN 100 MG CAP PO PRN (14:36)
[2017-11-14] MEDS ORDERED: KETOROLAC 15 MG/1 ML SDV IVP PRN (15:28)
[2017-11-14] MEDS ORDERED: NITROGLYCERIN/DEXTROSE 250 ML IV PRN (16:00)
[2017-11-14] MEDS ORDERED: NS 1,000 ML IV SCH (16:15)
[2017-11-14] MEDS ORDERED: CHLORHEXIDINE GLUC HIBICLENS 118 ML BTL TP SCH (21:00)
[2017-11-14] MEDS: SENNOSIDES/DOCUSATE SODIUM TAB PO SCH (21:29)
[2017-11-14] MEDS: PANTOPRAZOLE SODIUM 40 MG TAB PO SCH (21:31)
[2017-11-14] MEDS: LITHIUM CARBONATE 300 MG TAB PO SCH (21:34)
[2017-11-14] MEDS: GABAPENTIN 300 MG CAP PO SCH (21:35)
[2017-11-14] MEDS: ATORVASTATIN CALCIUM 40 MG TAB PO SCH (21:35)
[2017-11-14] MEDS: CETIRIZINE 10 MG TAB PO SCH (21:36)
[2017-11-14] MEDS: Emtricitabine/Tenofov Alafenam [Descovy 200-25 Mg Tablet] PO SCH (21:40)
[2017-11-14] MEDS: FLUTICASONE NASAL 120 SPRAYS/16 GM MDI EACHNARE SCH (21:43)
[2017-11-14] MEDS: MUPIROCIN 2% 22 GM OINT NS SCH (22:53)
[2017-11-15] MEDS ORDERED: AMINOCAPROIC ACID 5 GM/20 ML VIAL IV ONE (06:00)
[2017-11-15] MEDS ORDERED: NOREPINEPHRINE BITARTRATE 16 MG in NS 250 ML IV ONE (06:00)
[2017-11-15] MEDS ORDERED: PHENYLEPHRINE HCL 50 MG in NS 250 ML IV ONE (06:00)
[2017-11-15] MEDS ORDERED: INSULIN REGULAR HUMAN 100 UNIT in NS 100 ML IV ONE (06:00)
[2017-11-15] MEDS ORDERED: SODIUM BICARBONATE 20 MEQ, LIDOCAINE 1% 10 ML in NORMOSOL-R 1,000 ML MISC ONE (06:00)
[2017-11-15] MEDS ORDERED: CITRATE DEXTROSE SOLN 500 ML BAG MISC ONE (06:00)
[2017-11-15] MEDS ORDERED: MANNITOL 25% 12.5 GM/50 ML VIAL IVP ONE (06:00)
[2017-11-15] MEDS ORDERED: ceFAZolin 2 GM/SWFI 2 GM/20 ML SYR IVP ONE (06:00)
[2017-11-15] MEDS ORDERED: VERAPAMIL 5 MG, NITROGLYCERIN 2.5 MG, HEPARIN 500 UNIT, SODIUM BICARBONATE 0.2 MEQ in L... MISC ONE (06:00)
[2017-11-15] MEDS ORDERED: niCARdipine/NACL 200 ML IV ONE (06:00)
[2017-11-15] MEDS ORDERED: MINERAL OIL 10 ML VIAL ONE (06:47)
[2017-11-15] MEDS ORDERED: PAPAVERINE HCL 60 MG/2 ML SDV ONE (06:47)
[2017-11-15] MEDS ORDERED: VERAPAMIL 5 MG/2 ML VIAL ONE (06:47)
[2017-11-15] MEDS ORDERED: HEPARIN 10,000 UNIT/10 ML MDV (1,000 UNIT/ML) ONE ×2 (07:09→07:11)
[2017-11-15] MEDS ORDERED: AMIODARONE HCL 150 MG/3 ML VIAL ONE ×2 (07:09→07:12)
[2017-11-15] MEDS ORDERED: LIDOCAINE 2% 100 MG/5 ML SYR ONE (07:09)
[2017-11-15] MEDS ORDERED: CALCIUM CHLORIDE 1 GM/10 ML INJ ONE ×2 (07:09→07:10)
[2017-11-15] MEDS ORDERED: ALBUMIN 5% 250 ML BOTTLE IV ONE (07:09)
[2017-11-15] MEDS ORDERED: CITRATE DEXTROSE SOLN 500 ML BAG ONE (07:09)
[2017-11-15] MEDS ORDERED: MILRINONE/DEXTROSE/100 ML BAG IV ONE (07:10)
[2017-11-15] MEDS ORDERED: PROTAMINE SULFATE 50 MG/5 ML VIAL IVP ONE (07:10)
[2017-11-15] MEDS ORDERED: MAGNESIUM SULFATE 1 GM/2 ML VIAL ONE (07:10)
[2017-11-15] MEDS ORDERED: methylPREDNISolone SOD SUCC 1 GM/8 ML VIAL ONE (07:10)
[2017-11-15] MEDS ORDERED: niCARdipine/NACL/200 ML BAG IV ONE ×2 (07:11→12:55)
[2017-11-15] MEDS ORDERED: DOPamine/DEXTROSE/250 ML BAG IV ONE (07:11)
[2017-11-15] MEDS ORDERED: NA BICARBONATE 50 MEQ/50 ML VIAL ONE (07:11)
[2017-11-15] MEDS ORDERED: ADENOSINE 6 MG/2 ML VIAL ONE (07:12)
[2017-11-15] MEDS ORDERED: ceFAZolin 1 GM VIAL ONE (07:12)
[2017-11-15] MEDS ORDERED: LR 1,000 ML IV ONE (07:47)
[2017-11-15] MEDS ORDERED: MIDAZOLAM 2 MG/2 ML VIAL ONE (08:03)
[2017-11-15] MEDS ORDERED: MIDAZOLAM 2 MG/2 ML VIAL IVP ONE (08:09)
--- NOTE | 2017-11-15 08:10 | PDANEPAE ---
ANE History of Present Illness here for cabg ANE Past Medical History - Cardiovascular History Hx Hypertension: No Hx Arrhythmias: No Hx Chest Pain: No Hx Coronary Artery / Peripheral Vascular Disease: Yes Hx CHF / Valvular Disease: No Hx Palpitations: No Cardiovascular History Comment: 10 cardiac stents placed first one in - Pulmonary History Hx COPD: No Hx Asthma/Reactive Airway Disease: No Hx Recent Upper Respiratory Infection: No Hx Oxygen in Use at Home: No Hx Sleep Apnea: No Sleep Apnea Screening Result - Last Documented: Positive Pulmonary History Comment: asthmatic bronchitis usually every 2 years - Neurologic History Hx Cerebrovascular Accident: No Hx Seizures: No Hx Dementia: No Neurologic History Comment: radiculopathy. peripheral neuropathy. right foot drop - Endocrine History Hx Diabetes: No - Renal History Hx Renal Disorders: Yes Renal History Comment: has been told he has mild kidney disease d/t medications - Liver History Hx Hepatic Disorders: No Hepatic History Comment: hep a & b aquired at work - Neurological & Psychiatric Hx Hx Neurological and Psychiatric Disorders: Yes Neurological / Psychiatric History Comment: bipolar type 2. hx of depression - Cancer History Hx Cancer: No - Congenital Disorder History Hx Congenital Disorders: No - GI History Hx Gastrointestinal Disorders: Yes Gastrointestinal History Comment: reflux - Other Health History Other Health History: on back "thick skin" - Chronic Pain History Chronic Pain: Yes (radiculopathy and back pain) - Surgical History Prior Surgeries: cardiac stents x10. left ankle repair orif. bilateral hernia 1988. lots of bone fx's from osteoporosis ANE Review of Systems Review of systems is: negative Review of Systems: - Exercise capacity Exercise capacity: <4 METS ANE Patient History - Allergies Allergies/Adverse Reactions: oxycodone HCl [From OxyContin] Allergy (Verified 11/13/17 16:04) Itching oxycodone HCl Allergy (Unknown, Uncoded 11/13/17 16:04) Itching escalith Allergy (Uncoded 11/13/17 16:04) - Home Medications Home Medications: Clopidogrel Bisulfate [Plavix (*)] 75 mg PO HS 05/29/17 [Last Taken 11/10/17] Emtricitabine/Tenofov Alafenam [Descovy 200-25 mg Tablet] 1 each PO HS 05/29/17 [Last Taken 11/12/17] Aspirin EC [Aspirin EC 325 mg (*)] 325 mg PO HS 11/13/17 [Last Taken 11/12/17] Atorvastatin Calcium [Lipitor 40 mg (*)] 80 mg PO HS 11/13/17 [Last Taken ] Esomeprazole Mag Trihydrate [Nexium] 80 mg PO HS 11/13/17 [Last Taken 11/12/17] Fluticasone Nasal [Flonase Nasal [place] (RX)] 2 sprays EACHNARE HS 11/13/17 [ Last Taken 11/12/17] Gabapentin [Neurontin 300 MG (*)] 600 mg PO HS 11/13/17 [Last Taken 11/12/17] Levocetirizine Dihydrochloride [Xyzal] 5 mg PO HS 11/13/17 [Last Taken 11/12/17] [place] Carbonate 150 mg PO HS 11/13/17 [Last Taken 11/12/17] [place] Carbonate [[place] Carbonate Cap 300 mg (*)] 300 mg PO HS 11/13/17 [ Last Taken 11/12/17] Ondansetron Odt [Zofran Odt 4 mg (*)] 4 mg PO TID PRN 11/13/17 [Last Taken 11/13] Tivicay 50 mg PO HS 11/13/17 [Last Taken 11/12/17] - NPO status NPO Status: no food or drink >8 hours NPO Since - Liquids (Date): 11/15/17 NPO Since - Liquids (Time): 00:01 NPO Since - Solids (Date): 11/15/17 NPO Since - Solids (Time): 00:01 - Smoking Hx Smoking Status: Former smoker - Family Anes Hx Family Hx Anesthesia Complications: none ANE Labs/Vital Signs - Labs Result Diagrams: 11/15/17 04:50 11/15/17 04:50 - Vital Signs Blood Pressure: 115/74 Heart Rate: 71 Respiratory Rate: 16 O2 Sat (%): 95 Height: 170.18 cm Weight: 85.3 kg ANE Physical Exam - Airway Neck exam: FROM Mallampati Score: Class 1 Mouth exam: kelly - Pulmonary Pulmonary: no respiratory distress - Cardiovascular Cardiovascular: regular rate and rhythym - ASA Status ASA Status: IV ANE Anesthesia Plan Anesthesia Plan: general endotracheal anesthesia Lines/Monitors: arterial line, central line
[2017-11-15] MEDS ORDERED: fentaNYL 250 MCG/5 ML INJ ONE ×2 (08:12→10:11)
[2017-11-15] MEDS ORDERED: PROPOFOL/EMULSION 500 MG/50 ML BOTTLE IV ONE (08:14)
[2017-11-15] MEDS ORDERED: KETAMINE 200 MG/20 ML VIAL ONE (08:16)
[2017-11-15] MEDS ORDERED: DEXMEDETOMIDINE IN 0.9 % NACL 100 ML IV ONE (10:00)
[2017-11-15] MEDS ORDERED: SUGAMMADEX SODIUM 200 MG/2 ML VIAL IVP ONE (11:35)
[2017-11-15] MEDS ORDERED: POLYETHYLENE GLYCOL 3350 17 GM PKT PO PRN (11:49)
[2017-11-15] MEDS ORDERED: LACTULOSE 20 GM/30 ML UDCUP PO PRN (11:49)
[2017-11-15] MEDS ORDERED: METOCLOPRAMIDE 10 MG/2 ML VIAL IVP PRN (11:49)
[2017-11-15] MEDS ORDERED: MEPERIDINE 25 MG/ML SYR IVP PRN (11:49)
[2017-11-15] MEDS ORDERED: D50W 25 GM/50 ML SYR IVP PRN (11:49)
[2017-11-15] MEDS ORDERED: POTASSIUM Cl (KCl) 50 ML IV PRN (11:49)
[2017-11-15] MEDS ORDERED: CEPACOL LOZENGE PO PRN (11:49)
[2017-11-15] MEDS ORDERED: fentaNYL 100 MCG/2 ML INJ IVP PRN (11:49)
[2017-11-15] MEDS ORDERED: BISACODYL 10 MG SUPP PR PRN (11:49)
[2017-11-15] MEDS ORDERED: ACETAMINOPHEN 650 MG SUPP PR PRN (11:49)
[2017-11-15] MEDS ORDERED: MAGNESIUM HYDROXIDE 30 ML UDCUP PO PRN (11:49)
[2017-11-15] MEDS ORDERED: PANTOPRAZOLE SODIUM 40 MG VIAL IVP ONE (11:49)
[2017-11-15] MEDS ORDERED: SODIUM CL NASAL 45 ML BTL EACHNARE PRN (11:49)
[2017-11-15] MEDS ORDERED: INSULIN REGULAR HUMAN 100 UNIT in NS 100 ML IV SCH (12:00)
[2017-11-15] MEDS ORDERED: NS 1,000 ML IV SCH (12:00)
--- NOTE | 2017-11-15 12:17 | CPEKG ---
Heart Rate: 66 RR Interval: 909 P-R Interval: 184 QRSD Interval: 102 QT Interval: 428 QTC Interval: 449 P [place]: 26 QRS [place]: 16 T Wave [place]: -75 EKG Severity - NORMAL ECG - EKG Impression: SINUS RHYTHM EKG Impression: DIFFUSE ST DEPRESSION Electronically Signed By: Alize Morris 15-Nov-2017 12:26:45
[2017-11-15] MEDS: ALBUMIN 5% 250 ML IV PRN ×2 (12:30→13:02)
[2017-11-15] MEDS: SENNOSIDES/DOCUSATE SODIUM TAB PO SCH (12:43)
[2017-11-15] MEDS: METOPROLOL TARTRATE 25 MG TAB PO SCH (12:43)
[2017-11-15] MEDS: MUPIROCIN 2% 22 GM OINT NS SCH ×2 (12:43→21:51)
[2017-11-15] MEDS ORDERED: niCARdipine/NACL 200 ML IV SCH (13:00)
[2017-11-15] MEDS: ceFAZolin 2 GM/SWFI 2 GM/20 ML SYR IVP SCH ×2 (13:02→21:56)
[2017-11-15] MEDS ORDERED: ceFAZolin 2 GM/DEXTROSE 100 ML IV SCH (14:00)
[2017-11-15] MEDS ORDERED: ALBUMIN 5% 250 ML IV ONE ×2 (14:00→15:00)
--- NOTE | 2017-11-15 14:16 | GCON ---
[f rep st] CONSULTATION CELL TESTER CONSULTATION He was examined postoperatively after receiving coronary bypass graft. The patient is a 62-year-old white male with a past medical history including coronary artery disease with status post stents, gas troesophageal reflux disease, bipolar disease, hyperlipidemia, anemia, obesity, chronic renal insuffi ciency, and HIV which is apparently well controlled. Again, he is examined postoperatively after rec eiving a 3-vessel bypass. He is currently sedated and on mechanical ventilation. All history is gle aned from the medical record. REVIEW OF SYSTEMS: A 10-point review of systems was attempted and I am unable to perform secondary t o patient being sedated and on mechanical ventilation. FAMILY HISTORY: Noncontributory. PAST MEDICAL HISTORY: Again, significant for chronic renal insufficiency, anemia, osteoporosis, bipo lar disease, coronary artery disease, HIV, gastroesophageal reflux disease, hyperlipidemia, chronic b ronchitis and obesity. ALLERGIES: Oxycodone. SOCIAL HISTORY: Unknown tobacco use. Unknown alcohol use. Apparently has a history of polysubstanc e abuse which is in remission. 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 PHYSICAL EXAM: VITAL SIGNS: Blood pressure is 115/74, pulse 71, respirations 16, temperature is 36. 9, oxygen saturation 95% on 100% mechanical ventilation. GENERAL: He is a moderately overweight, 62 -year-old white male who is sedated, on mechanical ventilation. HEENT: Eyes are PERRLA, EOMI. Thro at: Endotracheal tube is in good position. NECK: Supple. No cervical adenopathy. HEART: Regular rate and rhythm with a 2/6 systolic murmur at left sternal border without radiation. LUNGS: Dimini shed breath sounds but no wheeze. ABDOMEN: Soft, nontender. Bowel sounds are present in all 4 quad rants. EXTREMITIES: No clubbing, cyanosis, or edema. LABORATORIES: White count 6.6, hemoglobin 10, hematocrit 33, platelet count 235. Sodium 145, potass ium 4.3, chloride 110, CO2 24, BUN 20, creatinine 1.5, glucose is 99. Hemoglobin A1c is 6.18. Chest x-ray, interpreted by myself, shows endotracheal tube in good position. Central line in good positi on. Cardiomegaly present. Sternal wires are present. Mild pulmonary edema. IMPRESSION: 1. Coronary artery disease. 2. Status post coronary artery bypass graft. 3. Human immunodeficiency virus. 4. History of gastroesophageal reflux disease. 5. Bipolar disease. 6. Anemia. 7. Obesity. 8. Chronic renal insufficiency. RECOMMENDATIONS: 1. We will wean from mechanical ventilation as tolerated. 2. Adequate pain control. 3. DVT and PE prophylaxis. 4. Stress ulcer prophylaxis. 5. Aggressive blood sugar control. 6. Early ambulation. 7. PT and OT. /[id number]/MODL
[2017-11-15] MEDS: ASPIRIN EC 325 MG TAB PO SCH (14:55)
[2017-11-15] MEDS ORDERED: NS 500 ML IV ONE (15:00)
--- NOTE | 2017-11-15 16:15 | HOSPPROG ---
Hospitalist Progress Note Assessment/Plan: Multi-vessel CAD presenting with NSTEMI - Angiogram yest - multi-vessel dz - CABG today per CV surgery HIV - stable, cont home meds Lumbar radiculopathy - prior back surgeries -cont gabapentin GERD - cont PPI Full code Dispo - cont inpt. Medicine will sign off as patient now primarily managed per CV surgery. Please recall for any further medicine needs. Objective: Vital Signs Temp Pulse Resp BP Pulse Ox 36.5 C 66 24 H 124/71 H 96 11/15/17 16:00 11/15/17 16:00 11/15/17 16:00 11/15/17 16:00 11/15/17 16:00 Laboratory Results 11/15/17 04:50 11/15/17 04:50 11/14/17 11/15/17 11/16/17 05:59 05:59 05:59 Intake Total 767 1300 Output Total 2150 Balance 767 -850 PT 14.4 SEC (12.0-15.0) 11/14/17 05:33 INR 1.10 (0.83-1.16) 11/14/17 05:33 ICD10 Worksheet Patient Problems: Problems Problem Status Onset Acute blood loss anemia Acute Acute coronary syndrome Acute Chest pain Acute S/P CABG x 3 Acute ~11/15/17 Low back pain Acute
--- NOTE | 2017-11-15 17:03 | GOP ---
[f rep st] OPERATIVE REPORT DATE OF OPERATION: 11/15/2017 SURGEON: German Garcia DO PRODUCTION STAFF WORKER: Prince. ANESTHESIOLOGIST: Winston. PREOPERATIVE DIAGNOSIS: Acute myocardial infarction with post infarction angina and 3-vessel disease . POSTOPERATIVE DIAGNOSIS: Acute myocardial infarction with post infarction angina and 3-vessel diseas e. PROCEDURE PERFORMED: 1. Urgent coronary artery bypass grafting x3 with internal mammary to the left anterior descending, saphenous vein graft to the first diagonal, saphenous vein graft to the ramus. 2. Endoscopic vein harvest. 3. Ligate left atrial appendage. FINDINGS: DESCRIPTION OF PROCEDURE: The patient was brought to the operating room, intubated, monitoring lines were placed. He was prepped and draped in sterile manner. Sternotomy was performed. Mammary and v ein were harvested. The vein was 3.2 mm in diameter and good quality. The mammary was 1.6 mm vessel with brisk flow. After heparinization, he was cannulated. Bypass was begun. A cardioplegic arrest was attained with antegrade cardioplegia. Topical hypothermia and systemic cooling. All distals an d proximals performed with a crossclamp on. The ramus branch was a 2.5 mm vessel. The diagonal was a 1.8 mm vessel. The LAD was a 2 mm vessel. We also doubly ligated the left atrial appendage with L igaSuture. It was narrow-based appendage without thrombus. Patient was weaned from bypass. The hep [place] was reversed with protamine. The cannula was removed and oversewn. 2 ventricular pacing wires, 1 left plural and 1 mediastinal drain, were placed. The thymic fat and pericardium were closed. Mena st was closed in a standard fashion. Patient was returned to ICU in stable condition. SURGEON: German Garcia DO. /[id number]/MODL
[2017-11-15] MEDS: GABAPENTIN 300 MG CAP PO SCH ×2 (21:32→23:28)
[2017-11-15] MEDS: HYDROCODONE/APAP 5/325 TAB PO PRN (21:32)
[2017-11-15] MEDS: LITHIUM CARBONATE 300 MG TAB PO SCH ×2 (21:33→23:28)
[2017-11-15] MEDS: Emtricitabine/Tenofov Alafenam [Descovy 200-25 Mg Tablet] PO SCH ×2 (21:34→21:46)
[2017-11-15] MEDS: FLUTICASONE NASAL 120 SPRAYS/16 GM MDI EACHNARE SCH (21:36)
[2017-11-16] MEDS: ceFAZolin 2 GM/SWFI 2 GM/20 ML SYR IVP SCH ×3 (05:32→22:02)
[2017-11-16 05:38] LABS: PLATELET COUNT 156 10^3/uL (150-400)
[2017-11-16] MEDS: HEPARIN 5,000 UNIT/0.5 ML SYR SC SCH ×3 (05:57→21:18)
--- NOTE | 2017-11-16 07:18 | SOAPPROG ---
SOAP Progress Note Assessment/Plan: POD #1: CABGx3 (LOPEZ-LAD, SVG-D1, SVG-Ramus, EVH left leg, ligation BEV AMI/unstable angina s/p urgent CABGx3 - ASA, BB/statin when appropriate - CTs to bulb suction, AL/FC out - PT/OT Acute blood loss anemia - Stable without the need for transfusions CKD, baseline Cr 1.6 - CR 1.5 today with adequate UOP and no metabolic derangements - Avoid nephrotoxins HIV - Pre-op meds restarted Subjective: Pain is tolerable. Denies SOB. Objective: Vital Signs Temp Pulse Resp BP Pulse Ox 38 C 106 H 25 H 120/65 93 11/16/17 06:57 11/16/17 06:57 11/16/17 06:57 11/16/17 06:57 11/16/17 06:57 Laboratory Results 11/16/17 05:20 11/16/17 05:20 11/15/17 11/16/17 11/17/17 05:59 05:59 05:59 Intake Total 1300 752.1 Output Total 2150 2759 40 Balance -850 -2006.9 -40 PT 14.4 SEC (12.0-15.0) 11/14/17 05:33 INR 1.10 (0.83-1.16) 11/14/17 05:33 Physical Exam - Physical Exam General Appearance: WD/WN, alert, no apparent distress EENT: No scleral icterus (R), No scleral icterus (L) Neck: normal inspection Respiratory: No respiratory distress Cardiac/Chest: tachycardia Abdomen: non-tender, soft, No distended Skin: normal color, warm/dry Extremities: No pedal edema Neuro/Psych: no motor/sensory deficits, alert, normal mood/affect, oriented x 3 ICD10 Worksheet Patient Problems: Problems Problem Status Onset Acute blood loss anemia Acute Acute coronary syndrome Acute Chest pain Acute S/P CABG x 3 Acute ~11/15/17 Low back pain Acute
[2017-11-16] MEDS: ASPIRIN 81 MG CHEWABLE TAB PO SCH (08:55)
[2017-11-16] MEDS: MUPIROCIN 2% 22 GM OINT NS SCH ×2 (08:59→21:18)
--- NOTE | 2017-11-16 09:05 | PDINTPN ---
Commercial Drafter Progress Note Assessment/Plan: Assessment/Plan: * Status post coronary bypass graft * Coronary artery disease * Chronic renal insufficiency * Bipolar disease * HIV positive * Hyperlipidemia * Respiratory-stable off mechanical ventilation -wean FiO2 as tolerated * Pain-not currently well controlled. Patient hesitates to take narcotics * Nutrition-none for now. His speech to see. * PT/OT * Out of bed to chair Subjective: Sitting up in chair. Complains of pain, especially with deep inspiration or cough. Objective: Vital Signs Temp Pulse Resp BP Pulse Ox 38 C 106 H 27 H 112/59 L 93 11/16/17 06:57 11/16/17 08:00 11/16/17 08:00 11/16/17 08:00 11/16/17 08:00 Laboratory Results 11/16/17 05:20 11/16/17 05:20 11/15/17 11/16/17 11/17/17 05:59 05:59 05:59 Intake Total 1300 752.1 Output Total 2150 2759 150 Balance -850 -2006.9 -150 PT 14.4 SEC (12.0-15.0) 11/14/17 05:33 INR 1.10 (0.83-1.16) 11/14/17 05:33 - Time Spent With Patient Time Spent With Patient: 35 min of time spent with patient, over 1/2 involved with coordination of care or counseling Physical Exam - Physical Exam General Appearance: alert, mild distress EENT: PERRL/EOMI, normal ENT inspection Neck: non-tender Respiratory: chest non-tender, lungs clear, normal breath sounds Cardiac/Chest: normal peripheral pulses, regular rate, rhythm, systolic murmur Peripheral Pulses: 2+: carotid (R), carotid (L), femoral (R), femoral (L), dorsalis-pedis (R), dorsalis-pedis (L) Abdomen: normal bowel sounds, non-tender, soft Male Genitalia: deferred Rectal: deferred Skin: normal color, warm/dry Extremities: normal range of motion, non-tender, normal inspection, normal capillary refill Neuro/Psych: alert ICD10 Worksheet Patient Problems: Problems Problem Status Onset Acute blood loss anemia Acute Acute coronary syndrome Acute Chest pain Acute S/P CABG x 3 Acute ~11/15/17 Low back pain Acute
[2017-11-16] MEDS: ACETAMINOPHEN 325 MG TAB PO PRN ×2 (09:09→13:24)
[2017-11-16] MEDS: INSULIN LISPRO 100 UNIT/ML SC SCH ×2 (12:31→17:42)
--- NOTE | 2017-11-16 13:44 | POSTANESTH ---
Post Anesthetic Evaluation Cardiovascular Status: Normal, Stable Respiratory Status: Normal, Stable Level of Consciousness/Mental Status: Can Participate in Eval Pain Control: Inadeq, Add Tx Required (complaining of back pain. Advised to increase scs for pre existing chronic pain and LE neuropathy) Nausea/Vomiting Control: Adequate, Prn Tx Ordered Complications Possibly Related to Anesthesia: None Noted
[2017-11-16] MEDS: HYDROmorphONE/DILAUDID 2 MG TAB PO PRN ×2 (16:56→21:16)
[2017-11-16] MEDS: CETIRIZINE 10 MG TAB PO SCH (21:11)
[2017-11-16] MEDS: Emtricitabine/Tenofov Alafenam [Descovy 200-25 Mg Tablet] PO SCH (21:13)
[2017-11-16] MEDS: PANTOPRAZOLE SODIUM 40 MG TAB PO SCH ×2 (21:14→21:31)
[2017-11-16] MEDS: FLUTICASONE NASAL 120 SPRAYS/16 GM MDI EACHNARE SCH (21:14)
[2017-11-16] MEDS: LITHIUM CARBONATE 300 MG TAB PO SCH (21:16)
[2017-11-16] MEDS: GABAPENTIN 300 MG CAP PO SCH (21:19)
[2017-11-16] MEDS: METOPROLOL TARTRATE 25 MG TAB PO SCH (21:34)
[2017-11-17] MEDS: HYDROCODONE/APAP 5/325 TAB PO PRN ×2 (00:46→17:29)
[2017-11-17] MEDS: HEPARIN 5,000 UNIT/0.5 ML SYR SC SCH ×3 (05:50→21:33)
[2017-11-17] MEDS: ACETAMINOPHEN 325 MG TAB PO PRN (05:57)
--- NOTE | 2017-11-17 07:28 | SOAPPROG ---
SOAP Progress Note Assessment/Plan: POD #2: CABGx3 (LOPEZ-LAD, SVG-D1, SVG-Ramus, EVH left leg, ligation BEV AMI/unstable angina with h/o stents s/p urgent CABGx3 - Continue ASA, BB and statin for secondary prevention - Plavix not needed as revascularized - CTs and PW wires to be removed today - PT/OT Acute blood loss anemia - Stable s/p 1U PRBC CKD, baseline Cr 1.6 - Stable with CR 1.2 - Avoid nephrotoxins HIV - Pre-op meds restarted GERD - Continue PPI Subjective: Denies pain/SOB. Doesn't feel like walking today. Objective: Vital Signs Temp Pulse Resp BP Pulse Ox 37.1 C 110 H 28 H 105/63 92 11/17/17 04:00 11/17/17 04:00 11/17/17 04:00 11/17/17 04:00 11/17/17 04:00 Laboratory Results 11/17/17 03:57 11/17/17 03:50 11/16/17 11/17/17 11/18/17 05:59 05:59 05:59 Intake Total 752.1 1442 Output Total 2759 1090 Balance -2006.9 352 PT 14.4 SEC (12.0-15.0) 11/14/17 05:33 INR 1.10 (0.83-1.16) 11/14/17 05:33 Physical Exam - Physical Exam General Appearance: WD/WN, alert, no apparent distress EENT: No scleral icterus (R), No scleral icterus (L) Neck: normal inspection Respiratory: No respiratory distress Cardiac/Chest: tachycardia Abdomen: non-tender, soft, No distended Skin: normal color, warm/dry Extremities: No pedal edema Neuro/Psych: no motor/sensory deficits, alert, oriented x 3, depressed affect ICD10 Worksheet Patient Problems: Problems Problem Status Onset Acute blood loss anemia Acute Acute coronary syndrome Acute Chest pain Acute S/P CABG x 3 Acute ~11/15/17 Low back pain Acute
[2017-11-17] MEDS: INSULIN LISPRO 100 UNIT/ML SC SCH ×3 (08:27→18:14)
[2017-11-17] MEDS: MUPIROCIN 2% 22 GM OINT NS SCH (08:31)
[2017-11-17] MEDS: METOPROLOL TARTRATE 25 MG TAB PO SCH ×2 (08:31→21:41)
[2017-11-17] MEDS: ASPIRIN 81 MG CHEWABLE TAB PO SCH (08:31)
[2017-11-17] MEDS: SENNOSIDES/DOCUSATE SODIUM TAB PO SCH ×2 (08:54→21:34)
[2017-11-17] MEDS ORDERED: METOPROLOL TARTRATE 25 MG TAB PO ONE (08:54)
[2017-11-17] MEDS ORDERED: METOPROLOL TARTRATE 25 MG TAB PO SCH (09:00)
--- NOTE | 2017-11-17 09:19 | PDINTPN ---
Director Equipment Progress Note Assessment/Plan: Assessment/Plan: * Status post coronary bypass graft * Coronary artery disease with unstable angina * Chronic renal insufficiency * Bipolar disease * HIV positive * Hyperlipidemia * Respiratory-stable on minimal supplemental oxygen * Mental status-somewhat flat affect today. * Pain-well controlled -continue current regime * Nutrition- * PT/OT * Out of bed to chair Subjective: Sitting up in chair. Comfortable. Flat affect. Objective: Vital Signs Temp Pulse Resp BP Pulse Ox 37 C 109 H 32 H 100/64 95 11/17/17 08:00 11/17/17 08:00 11/17/17 08:00 11/17/17 08:00 11/17/17 08:00 Laboratory Results 11/17/17 03:57 11/17/17 03:50 11/16/17 11/17/17 11/18/17 05:59 05:59 05:59 Intake Total 752.1 1442 Output Total 2759 1090 Balance -2006.9 352 PT 14.4 SEC (12.0-15.0) 11/14/17 05:33 INR 1.10 (0.83-1.16) 11/14/17 05:33 - Time Spent With Patient Time Spent With Patient: 25 min of time spent with patient, over 1/2 involved with coordination of care or counseling. Case discussed with surgery and nursing Physical Exam - Physical Exam General Appearance: alert, other EENT: PERRL/EOMI Neck: non-tender, full range of motion, supple, normal inspection Respiratory: crackles (Few basilar), No respiratory distress, No wheezing Cardiac/Chest: normal peripheral pulses, regular rate, rhythm, systolic murmur Abdomen: normal bowel sounds, non-tender, soft Male Genitalia: deferred Rectal: deferred Skin: normal color, warm/dry Extremities: normal range of motion, non-tender, normal inspection, normal capillary refill Neuro/Psych: alert ICD10 Worksheet Patient Problems: Problems Problem Status Onset Acute blood loss anemia Acute Acute coronary syndrome Acute Chest pain Acute S/P CABG x 3 Acute ~11/15/17 Low back pain Acute
[2017-11-17] MEDS: D5W 1,000 ML IV SCH ×2 (11:03→21:36)
--- NOTE | 2017-11-17 18:12 | ASMTCMCOM ---
CM Note CM Note Notes: POD #2 of a CABG x 3. Therapies recommending SNF Rehab. Transferred to . Date Signed: 11/17/2017 06:11 PM Electronically Signed By:Emely Rodriguez LCSW
[2017-11-17] MEDS: CETIRIZINE 10 MG TAB PO SCH (21:33)
[2017-11-17] MEDS: PANTOPRAZOLE SODIUM 40 MG TAB PO SCH (21:34)
[2017-11-17] MEDS: GABAPENTIN 300 MG CAP PO SCH (21:34)
[2017-11-17] MEDS: traMADol 50 MG TAB PO PRN (21:34)
[2017-11-17] MEDS: FLUTICASONE NASAL 120 SPRAYS/16 GM MDI EACHNARE SCH (21:35)
[2017-11-17] MEDS: Emtricitabine/Tenofov Alafenam [Descovy 200-25 Mg Tablet] PO SCH (21:36)
[2017-11-17] MEDS: LITHIUM CARBONATE 300 MG TAB PO SCH (22:56)
[2017-11-18] MEDS: HEPARIN 5,000 UNIT/0.5 ML SYR SC SCH ×3 (05:32→22:33)
--- NOTE | 2017-11-18 07:59 | SOAPPROG ---
SOAP Progress Note Assessment/Plan: POD #3: CABGx3 (LOPEZ-LAD, SVG-D1, SVG-Ramus, EVH left leg, ligation BEV AMI/unstable angina with h/o stents s/p urgent CABGx3 - Continue ASA (325 mg as pt's request), BB and statin for secondary prevention - Plavix not needed as revascularized - CTs and PW out - PT/OT Acute blood loss anemia - Stable s/p 1U PRBC CKD, baseline Cr 1.6 - Stable - Avoid nephrotoxins HIV - Pre-op meds restarted GERD - Continue PPI Post-op cognitive impairment with hypernatremia - Secondary to hyperNa and resolution with free water infusion - Will likely stop D5W today pending Na level Subjective: Very talkative this morning. Denies pain/SOB. Feels like he's getting back to himself. Objective: Vital Signs Temp Pulse Resp BP Pulse Ox 37.5 C 94 16 106/78 95 11/18/17 07:20 11/18/17 07:20 11/18/17 07:20 11/18/17 07:20 11/18/17 07:20 Laboratory Results 11/17/17 03:57 11/17/17 03:50 11/17/17 11/18/17 11/19/17 05:59 05:59 05:59 Intake Total 1442 1274 Output Total 1090 1200 500 Balance 352 74 -500 PT 14.4 SEC (12.0-15.0) 11/14/17 05:33 INR 1.10 (0.83-1.16) 11/14/17 05:33 Physical Exam - Physical Exam General Appearance: WD/WN, alert, no apparent distress EENT: No scleral icterus (R), No scleral icterus (L) Neck: normal inspection Respiratory: No respiratory distress Cardiac/Chest: regular rate, rhythm Abdomen: non-tender, soft, No distended Skin: normal color, warm/dry Extremities: pedal edema Neuro/Psych: no motor/sensory deficits, alert, normal mood/affect, oriented x 3 ICD10 Worksheet Patient Problems: Problems Problem Status Onset Acute blood loss anemia Acute Acute coronary syndrome Acute Chest pain Acute S/P CABG x 3 Acute ~11/15/17 Low back pain Acute
[2017-11-18] MEDS: INSULIN LISPRO 100 UNIT/ML SC SCH (08:36)
[2017-11-18] MEDS: METOPROLOL TARTRATE 25 MG TAB PO SCH ×2 (08:43→20:06)
[2017-11-18] MEDS: SENNOSIDES/DOCUSATE SODIUM TAB PO SCH ×2 (08:44→20:01)
--- NOTE | 2017-11-18 10:38 | ASMTCMCOM ---
CM Note CM Note Notes: 11/18/2017 Case Management Note Discussed case with PA and RN this morning. Met w/pt to discuss need for SNF rehab. Pt in agreement. Sent referrals to [facility], [facility] and [facility]. Pt prefers to stay in [facility] if possible. Case Management d/c poc: SNF rehab pending acceptance and authorization from [facility]. Case Management to follow. Date Signed: 11/18/2017 10:37 AM Electronically Signed By:Amy Charles RN
[2017-11-18] MEDS ORDERED: POTASSIUM CL 20 MEQ TAB PO ONE (15:43)
[2017-11-18] MEDS: ASPIRIN EC 325 MG TAB PO SCH (20:01)
[2017-11-18] MEDS: PANTOPRAZOLE SODIUM 40 MG TAB PO SCH (20:02)
[2017-11-18] MEDS: GABAPENTIN 300 MG CAP PO SCH (20:02)
[2017-11-18] MEDS: CETIRIZINE 10 MG TAB PO SCH (20:03)
[2017-11-18] MEDS: LITHIUM CARBONATE 300 MG TAB PO SCH (20:04)
[2017-11-18] MEDS: Emtricitabine/Tenofov Alafenam [Descovy 200-25 Mg Tablet] PO SCH (20:06)
[2017-11-18] MEDS: FLUTICASONE NASAL 120 SPRAYS/16 GM MDI EACHNARE SCH (20:08)
[2017-11-18] MEDS: ATORVASTATIN CALCIUM 40 MG TAB PO SCH (20:24)
[2017-11-18] MEDS ORDERED: FUROSEMIDE 40 MG/4 ML VIAL IVP ONE (23:16)
[2017-11-19] MEDS: HEPARIN 5,000 UNIT/0.5 ML SYR SC SCH ×3 (06:20→20:56)
[2017-11-19] MEDS ORDERED: POTASSIUM CL 20 MEQ TAB PO ONE (07:00)
--- NOTE | 2017-11-19 07:33 | SOAPPROG ---
SOAP Progress Note Assessment/Plan: Assessment: POD#4 CABGx3 (LOPEZ-LAD, SVG-D1, SVG-Ramus), EVH left leg, ligation BEV Progressive CAD/ISR LAD system/AMI w postinfarction angina - s/p urgent CABGx3 with all stented territories revascularized. - Secondary prevention with ASA (325 mg as pt's request), BB and statin. Plavix no longer needed. - CTs and PW out Acute expected blood loss anemia - Stable s/p 1U PRBC CKD, baseline Cr 1.6 - Stable - Avoid nephrotoxins HIV - Pre-op meds restarted GERD - Continue PPI Plan: Cont current meds. Await CXR. Dispo - SNF placement pending insurance approval 11/19/17 07:33 Subjective: Breathing easier than yest. Worried about hypotension on BB. Doesn't like fluid restriction. +BM. Anxious about leaving hospital. Objective: Vital Signs Temp Pulse Resp BP Pulse Ox 37.0 C 87 18 107/73 96 11/19/17 07:13 11/19/17 07:13 11/19/17 07:13 11/19/17 07:13 11/19/17 07:13 Laboratory Results 11/17/17 03:57 11/18/17 11:51 11/18/17 11/19/17 11/20/17 05:59 05:59 05:59 Intake Total 1274 2650 Output Total 1200 3525 Balance 74 -875 PT 14.4 SEC (12.0-15.0) 11/14/17 05:33 INR 1.10 (0.83-1.16) 11/14/17 05:33 HR and BP stable on metop 25 mg BID. Did have transient SBP dip into 90s around [place]. Min suppl O2 req. Improved fluid balance s/p IV lasix. Now within 3 lbs admit wt. CXR f/u basilar consolidation pending. - Pending Discharge Pending Discharge Within 24 Hours: Yes Pending Discharge Date: 11/20/17 Pending Discharge Time: 11:00 Physical Exam - Physical Exam General Appearance: alert, no apparent distress Respiratory: lungs clear (grossly) Cardiac/Chest: regular rate, rhythm, other (Sternotomy and LLE venotomy CDI) Abdomen: non-tender, soft Skin: warm/dry Extremities: swelling (trace dependent donor leg) ICD10 Worksheet Patient Problems: Problems Problem Status Onset Acute blood loss anemia Acute Acute coronary syndrome Acute Chest pain Acute S/P CABG x 3 Acute ~11/15/17 Low back pain Acute
[2017-11-19] MEDS: SENNOSIDES/DOCUSATE SODIUM TAB PO SCH (08:49)
[2017-11-19] MEDS ORDERED: POTASSIUM CL 20 MEQ/15 ML UDCUP PO ONE (09:00)
[2017-11-19] MEDS: METOPROLOL TARTRATE 25 MG TAB PO SCH ×2 (09:39→20:50)
[2017-11-19] MEDS ORDERED: POTASSIUM CL 10 MEQ TAB PO SCH (13:00)
[2017-11-19] MEDS ORDERED: FUROSEMIDE 20 MG TAB PO SCH (13:00)
[2017-11-19] MEDS: POTASSIUM CL 20 MEQ/15 ML UDCUP PO SCH ×2 (13:18→13:30)
[2017-11-19] MEDS: DOCUSATE SODIUM 100 MG CAP PO SCH ×2 (14:31→20:49)
--- NOTE | 2017-11-19 14:38 | ASMTCMCOM ---
CM Note CM Note Notes: 11/19/2017 Case Management Note Pt has triggering PASSR. Utility Systems Repairer OperatorAuto Body Repair Estimator forwarded for review. Pt has chosen [facility]. [facility] running authorization. Case Management d/c poc: to [facility] pending authorization and review of PASSR. Case Management to follow. Date Signed: 11/19/2017 02:36 PM Electronically Signed By:Amy Charles RN
[2017-11-19] MEDS: ATORVASTATIN CALCIUM 40 MG TAB PO SCH (20:49)
[2017-11-19] MEDS: GABAPENTIN 300 MG CAP PO SCH (20:49)
[2017-11-19] MEDS: LITHIUM CARBONATE 300 MG TAB PO SCH (20:49)
[2017-11-19] MEDS: PANTOPRAZOLE SODIUM 40 MG TAB PO SCH (20:49)
[2017-11-19] MEDS: ASPIRIN EC 325 MG TAB PO SCH (20:50)
[2017-11-19] MEDS: CETIRIZINE 10 MG TAB PO SCH (20:50)
[2017-11-19] MEDS: Emtricitabine/Tenofov Alafenam [Descovy 200-25 Mg Tablet] PO SCH (21:00)
[2017-11-19] MEDS ORDERED: SENNOSIDES/DOCUSATE SODIUM TAB PO PRN (21:00)
[2017-11-20] MEDS: FLUTICASONE NASAL 120 SPRAYS/16 GM MDI EACHNARE SCH ×2 (00:21→20:33)
[2017-11-20] MEDS: HEPARIN 5,000 UNIT/0.5 ML SYR SC SCH ×3 (05:56→20:31)
--- NOTE | 2017-11-20 07:21 | SOAPPROG ---
SOAP Progress Note Assessment/Plan: Assessment: POD#5 CABGx3 (LOPEZ-LAD, SVG-D1, SVG-Ramus), EVH left leg, ligation BEV Progressive CAD/ISR LAD system/AMI w postinfarction angina - s/p urgent CABGx3 with all stented territories revascularized. - Secondary prevention with ASA (325 mg as pt's request), BB and statin. Plavix no longer needed. - CTs and PW out Acute expected blood loss anemia - Stable s/p 1U PRBC CKD, baseline Cr 1.6 - Stable - Avoid nephrotoxins HIV - Pre-op meds restarted GERD - Continue PPI Chronic low back pain with radiculopathy - Presence of spinal cord stimulator - Anticipating redo lumbar surgery - Short term memory loss on gabapentin - Skilled for SNF by PT Plan: Relax diuresis and fluid restriction. Dispo - SNF placement pending insurance approval. 11/20/17 07:18 Subjective: Doing ok. Still feels insp effort is limited but not dyspneic. Mobilizing secretions. Reluctant to take anything stronger than tramadol. Objective: Vital Signs Temp Pulse Resp BP Pulse Ox 36.8 C 94 17 110/83 H 94 11/20/17 04:00 11/20/17 04:00 11/20/17 04:00 11/20/17 04:00 11/20/17 04:00 Laboratory Results 11/17/17 03:57 11/19/17 11:10 11/19/17 11/20/17 11/21/17 05:59 05:59 05:59 Intake Total 2650 1790 Output Total 3525 4415 Balance -875 -2625 PT 14.4 SEC (12.0-15.0) 11/14/17 05:33 INR 1.10 (0.83-1.16) 11/14/17 05:33 HR and BP controlled. Stable 2-3 lpm suppl O2 req. Vigorous diuresis last 24 hrs. Now 1 kg below admit wt. - Pending Discharge Pending Discharge Within 24 Hours: Yes Pending Discharge Date: 11/21/17 Pending Discharge Time: 11:00 Physical Exam - Physical Exam General Appearance: alert, no apparent distress Respiratory: lungs clear Cardiac/Chest: regular rate, rhythm, other (Sternotomy and LLE venotomy CDI) Abdomen: non-tender, soft Skin: warm/dry Extremities: swelling (trace dependent) ICD10 Worksheet Patient Problems: Problems Problem Status Onset Acute blood loss anemia Acute Acute coronary syndrome Acute Chest pain Acute S/P CABG x 3 Acute ~11/15/17 Low back pain Acute
[2017-11-20] MEDS: METOPROLOL TARTRATE 25 MG TAB PO SCH ×2 (10:15→20:31)
[2017-11-20] MEDS: DOCUSATE SODIUM 100 MG CAP PO SCH ×2 (10:15→20:31)
--- NOTE | 2017-11-20 15:22 | ASMTCMCOM ---
CM Note CM Note Notes: Updated PT/OT notes sent to [facility] who is seeking authorization from [facility]. We are also waiting on a approval of a Level II PASRR from the state. Pending the above, patient will be set for discharge to [facility]. Current discharge plan: [facility] SNF Date Signed: 11/20/2017 03:22 PM Electronically Signed By:Emma Cani RN
[2017-11-20] MEDS: PANTOPRAZOLE SODIUM 40 MG TAB PO SCH (20:31)
[2017-11-20] MEDS: ATORVASTATIN CALCIUM 40 MG TAB PO SCH (20:31)
[2017-11-20] MEDS: GABAPENTIN 300 MG CAP PO SCH (20:31)
[2017-11-20] MEDS: GUAIFENESIN/DM 10 ML UDCUP PO PRN (20:31)
[2017-11-20] MEDS: CETIRIZINE 10 MG TAB PO SCH (20:32)
[2017-11-20] MEDS: LITHIUM CARBONATE 300 MG TAB PO SCH (20:32)
[2017-11-20] MEDS: ASPIRIN EC 325 MG TAB PO SCH (20:32)
[2017-11-20] MEDS: Emtricitabine/Tenofov Alafenam [Descovy 200-25 Mg Tablet] PO SCH (20:33)
[2017-11-21] MEDS: GUAIFENESIN/DM 10 ML UDCUP PO PRN (03:15)
[2017-11-21] MEDS: HEPARIN 5,000 UNIT/0.5 ML SYR SC SCH (06:17)
[2017-11-21] MEDS: traMADol 50 MG TAB PO PRN ×2 (06:27→11:39)
--- NOTE | 2017-11-21 06:29 | SOAPPROG ---
SOAP Progress Note Assessment/Plan: POD #6: CABGx3 (LOPEZ-LAD, SVG-D1, SVG-Ramus, EVH left leg, ligation BEV AMI/unstable angina with h/o stents s/p urgent CABGx3 - Continue ASA (325 mg as pt's request), BB, and statin for secondary prevention - Plavix not needed as revascularized - PT/OT Acute blood loss anemia - Stable s/p 1U PRBC CKD, baseline Cr 1.6 - Stable - Avoid nephrotoxins HIV - Pre-op meds restarted GERD - Continue PPI Post-op cognitive impairment with hypernatremia - Resolved Disposition - SNF transfer today at 11AM Subjective: Denies CP/SOB. Objective: Vital Signs Temp Pulse Resp BP Pulse Ox 37.3 C 77 17 92/65 L 96 11/20/17 23:54 11/20/17 23:54 11/20/17 23:54 11/20/17 23:54 11/20/17 23:54 Laboratory Results 11/17/17 03:57 11/19/17 11:10 11/20/17 11/21/17 11/22/17 05:59 05:59 05:59 Intake Total 1790 650 Output Total 4415 1800 Balance -2625 -1150 PT 14.4 SEC (12.0-15.0) 11/14/17 05:33 INR 1.10 (0.83-1.16) 11/14/17 05:33 Physical Exam - Physical Exam General Appearance: WD/WN, alert, no apparent distress EENT: No scleral icterus (R), No scleral icterus (L) Neck: normal inspection Respiratory: No respiratory distress Cardiac/Chest: regular rate, rhythm Abdomen: non-tender, soft, No distended Skin: normal color, warm/dry Extremities: No pedal edema Neuro/Psych: no motor/sensory deficits, alert, normal mood/affect, oriented x 3 ICD10 Worksheet Patient Problems: Problems Problem Status Onset Acute blood loss anemia Acute Acute coronary syndrome Acute Chest pain Acute S/P CABG x 3 Acute ~11/15/17 Low back pain Acute
[2017-11-21] MEDS: DOCUSATE SODIUM 100 MG CAP PO SCH (08:55)
[2017-11-21] MEDS: METOPROLOL TARTRATE 25 MG TAB PO SCH (08:55)
--- NOTE | 2017-11-21 09:28 | PDIAF ---
- Diagnosis Diagnosis: s/p CABGx3 Code Status: Full Code - Medication Management Discharge Medications: Medications to Continue on Transfer Clopidogrel Bisulfate [Plavix (*)] 75 mg PO HS 05/29/17 [Last Taken 11/10/17] Emtricitabine/Tenofov Alafenam [Descovy 200-25 mg Tablet] 1 each PO HS 05/29/17 [Last Taken 11/12/17] Aspirin EC [Aspirin EC 325 mg (*)] 325 mg PO HS 11/13/17 [Last Taken 11/12/17] Atorvastatin Calcium [Lipitor 40 mg (*)] 80 mg PO HS 11/13/17 [Last Taken ] Esomeprazole Mag Trihydrate [Nexium] 80 mg PO HS 11/13/17 [Last Taken 11/12/17] Fluticasone Nasal [Flonase Nasal [place]] 2 sprays EACHNARE HS 11/13/17 [Last Taken 11/12/17] Gabapentin [Neurontin 300 MG (*)] 600 mg PO HS 11/13/17 [Last Taken 11/12/17] Levocetirizine Dihydrochloride [Xyzal] 5 mg PO HS 11/13/17 [Last Taken 11/12/17] Ondansetron Odt [Zofran Odt 4 mg (*)] 4 mg PO TID PRN 11/13/17 [Last Taken 11/13] Tivicay 50 mg PO HS 11/13/17 [Last Taken 11/12/17] [place] Carbonate 450 mg PO HS #0 11/21/17 [Last Taken 11/12/17] Metoprolol Tartrate [Lopressor 25 mg (*)] 25 mg PO BID tab 11/21/17 [Last Taken Unknown] Sennosides/Docusate Sodium [Senokot-S] 2 tab PO BID PRN tab 11/21/17 [Last Taken Unknown] guaiFENesin/DEXTROMETHORPHAN [Robitussin Dm Oral Liquid (*)] 10 ml PO Q4HRS PRN ml 11/21/17 [Last Taken Unknown] traMADol [Ultram 50 mg (*)] 50 - 100 mg PO Q4HRS PRN tab 11/21/17 [Last Taken Unknown] Discharge Medications: Refer to the Discharge Home Medication list for PRN reason. PICC Care - Routine: N/A - Orders Services needed: Registered Nurse, Certified Plant Care Worker, Master Server Software Engineer , Physical Therapy, Occupational Therapy Isolation Type: None Diet Recommendation: cardiac -low fat low salt, fluid restriction (use comment for amount) (2 liters per day for 30 days) Diet Texture: Regular Texture Diet, Thin Liquids, Meds Whole w/Liquids, Meds Whole in Puree Weigh Patient: daily Delarosa: No Additional Instructions: Discharge Instructions: Call [facility] cardiac rehab to enroll in phase 2 classes if not already arranged. Sternal precautions x 4 weeks. Avoid lifting > 10lbs with an outstretched arm. Avoid push/pull activities. No driving until cleared by surgery. Elevate low legs at rest. Avoid prolonged standing or dangling. Cleanse wounds once daily with soap and water. Avoid immersion (pool, hot tub, bath) until scabs off. Ok to leave all wounds open to air. Avoid creams or ointments until scabs fall off. Log daily vital signs once home: weight, heart rate, blood pressure, and pulse oximetry if on oxygen. Call [facility] for overnight weight gain > 2lbs, weekly gain > 5lbs or worsening leg swelling. Call [facility] for resting heart rate > 140 OR for systolic blood pressure consistently < 90 or > 140. Target oxygen saturation > 89%. Ok to use [id number] medications for bowel function. Chest x-ray Instructions: Please obtain a chest xray prior to surgical appointment. Chest x-rays dont require an appointment. Come to the Emergency Room entrance at the [facility] location. Sign in at the computer kiosk in the entryway. You will be given a number and may sit in the waiting area until called. You will be registered and directed to the Imaging desk on the 1st floor. This process can take up to an hour. Make sure you allow enough time before your appointment to have your x-ray taken. - Follow Up Care Current Providers and Referrals: German Garcia DO [Doctor of Osteopathy] - 11/26/17 10:30 am Patient,NotPresent [Unknown] - As per Instructions
--- NOTE | 2017-11-21 09:50 | PDIAF ---
- Diagnosis Diagnosis: s/p CABGx3 Code Status: Full Code - Medication Management Discharge Medications: Medications to Continue on Transfer Clopidogrel Bisulfate [Plavix (*)] 75 mg PO HS 05/29/17 [Last Taken 11/10/17] Emtricitabine/Tenofov Alafenam [Descovy 200-25 mg Tablet] 1 each PO HS 05/29/17 [Last Taken 11/12/17] Aspirin EC [Aspirin EC 325 mg (*)] 325 mg PO HS 11/13/17 [Last Taken 11/12/17] Atorvastatin Calcium [Lipitor 40 mg (*)] 80 mg PO HS 11/13/17 [Last Taken ] Esomeprazole Mag Trihydrate [Nexium] 80 mg PO HS 11/13/17 [Last Taken 11/12/17] Fluticasone Nasal [Flonase Nasal [place]] 2 sprays EACHNARE HS 11/13/17 [Last Taken 11/12/17] Gabapentin [Neurontin 300 MG (*)] 600 mg PO HS 11/13/17 [Last Taken 11/12/17] Levocetirizine Dihydrochloride [Xyzal] 5 mg PO HS 11/13/17 [Last Taken 11/12/17] Ondansetron Odt [Zofran Odt 4 mg (*)] 4 mg PO TID PRN 11/13/17 [Last Taken 11/13] Tivicay 50 mg PO HS 11/13/17 [Last Taken 11/12/17] [place] Carbonate 450 mg PO HS #0 11/21/17 [Last Taken 11/12/17] Metoprolol Tartrate [Lopressor 25 mg (*)] 25 mg PO BID tab 11/21/17 [Last Taken Unknown] Sennosides/Docusate Sodium [Senokot-S] 2 tab PO BID PRN tab 11/21/17 [Last Taken Unknown] guaiFENesin/DEXTROMETHORPHAN [Robitussin Dm Oral Liquid (*)] 10 ml PO Q4HRS PRN ml 11/21/17 [Last Taken Unknown] traMADol [Ultram 50 mg (*)] 50 - 100 mg PO Q4HRS PRN tab 11/21/17 [Last Taken Unknown] Discharge Medications: Refer to the Discharge Home Medication list for PRN reason. PICC Care - Routine: N/A - Orders Services needed: Registered Nurse, Certified Director Speech, Master Industrial Hire Sales Assistant , Physical Therapy, Occupational Therapy Isolation Type: None Oxygen: 2 L/min via nasal cannula Diet Recommendation: cardiac -low fat low salt, fluid restriction (use comment for amount) (2 liters per day for 30 days) Diet Texture: Regular Texture Diet, Thin Liquids, Meds Whole w/Liquids, Meds Whole in Puree Weigh Patient: daily Delarosa: No Additional Instructions: Discharge Instructions: Call [facility] cardiac rehab to enroll in phase 2 classes if not already arranged. Sternal precautions x 4 weeks. Avoid lifting > 10lbs with an outstretched arm. Avoid push/pull activities. No driving until cleared by surgery. Elevate low legs at rest. Avoid prolonged standing or dangling. Cleanse wounds once daily with soap and water. Avoid immersion (pool, hot tub, bath) until scabs off. Ok to leave all wounds open to air. Avoid creams or ointments until scabs fall off. Log daily vital signs once home: weight, heart rate, blood pressure, and pulse oximetry if on oxygen. Call [facility] for overnight weight gain > 2lbs, weekly gain > 5lbs or worsening leg swelling. Call [facility] for resting heart rate > 140 OR for systolic blood pressure consistently < 90 or > 140. Target oxygen saturation > 89%. Ok to use [id number] medications for bowel function. Chest x-ray Instructions: Please obtain a chest xray prior to surgical appointment. Chest x-rays dont require an appointment. Come to the Emergency Room entrance at the [facility] location. Sign in at the computer kiosk in the entryway. You will be given a number and may sit in the waiting area until called. You will be registered and directed to the Imaging desk on the 1st floor. This process can take up to an hour. Make sure you allow enough time before your appointment to have your x-ray taken. - Follow Up Care Current Providers and Referrals: German Garcia DO [Doctor of Osteopathy] - 11/26/17 10:30 am Patient,NotPresent [Unknown] - As per Instructions
[2017-11-21 11:38] VITALS: BP 100/68
--- NOTE | 2017-11-21 12:05 | PDIAF ---
- Diagnosis Diagnosis: s/p CABGx3 Code Status: Full Code - Medication Management Discharge Medications: Medications to Continue on Transfer Emtricitabine/Tenofov Alafenam [Descovy 200-25 mg Tablet] 1 each PO HS 05/29/17 [Last Taken 11/12/17] Aspirin EC [Aspirin EC 325 mg (*)] 325 mg PO HS 11/13/17 [Last Taken 11/12/17] Atorvastatin Calcium [Lipitor 40 mg (*)] 80 mg PO HS 11/13/17 [Last Taken ] Esomeprazole Mag Trihydrate [Nexium] 80 mg PO HS 11/13/17 [Last Taken 11/12/17] Fluticasone Nasal [Flonase Nasal [place]] 2 sprays EACHNARE HS 11/13/17 [Last Taken 11/12/17] Gabapentin [Neurontin 300 MG (*)] 600 mg PO HS 11/13/17 [Last Taken 11/12/17] Levocetirizine Dihydrochloride [Xyzal] 5 mg PO HS 11/13/17 [Last Taken 11/12/17] Ondansetron Odt [Zofran Odt 4 mg (*)] 4 mg PO TID PRN 11/13/17 [Last Taken 11/13] Tivicay 50 mg PO HS 11/13/17 [Last Taken 11/12/17] [place] Carbonate 450 mg PO HS #0 11/21/17 [Last Taken 11/12/17] Metoprolol Tartrate [Lopressor 25 mg (*)] 25 mg PO BID tab 11/21/17 [Last Taken Unknown] Sennosides/Docusate Sodium [Senokot-S] 2 tab PO BID PRN tab 11/21/17 [Last Taken Unknown] guaiFENesin/DEXTROMETHORPHAN [Robitussin Dm Oral Liquid (*)] 10 ml PO Q4HRS PRN ml 11/21/17 [Last Taken Unknown] traMADol [Ultram 50 mg (*)] 50 - 100 mg PO Q4HRS PRN tab 11/21/17 [Last Taken Unknown] Discharge Medications: Refer to the Discharge Home Medication list for PRN reason. PICC Care - Routine: N/A - Orders Services needed: Registered Nurse, Certified Stenographic Court Reporter, Master Breast Worker , Physical Therapy, Occupational Therapy Isolation Type: None Oxygen: 2 L/min via nasal cannula Diet Recommendation: cardiac -low fat low salt, fluid restriction (use comment for amount) (2 liters per day for 30 days) Diet Texture: Regular Texture Diet, Thin Liquids, Meds Whole w/Liquids, Meds Whole in Puree Weigh Patient: daily Delarosa: No Additional Instructions: Discharge Instructions: Call [facility] cardiac rehab to enroll in phase 2 classes if not already arranged. Sternal precautions x 4 weeks. Avoid lifting > 10lbs with an outstretched arm. Avoid push/pull activities. No driving until cleared by surgery. Elevate low legs at rest. Avoid prolonged standing or dangling. Cleanse wounds once daily with soap and water. Avoid immersion (pool, hot tub, bath) until scabs off. Ok to leave all wounds open to air. Avoid creams or ointments until scabs fall off. Log daily vital signs once home: weight, heart rate, blood pressure, and pulse oximetry if on oxygen. Call [facility] for overnight weight gain > 2lbs, weekly gain > 5lbs or worsening leg swelling. Call [facility] for resting heart rate > 140 OR for systolic blood pressure consistently < 90 or > 140. Target oxygen saturation > 89%. Ok to use [id number] medications for bowel function. Chest x-ray Instructions: Please obtain a chest xray prior to surgical appointment. Chest x-rays dont require an appointment. Come to the Emergency Room entrance at the [facility] location. Sign in at the computer kiosk in the entryway. You will be given a number and may sit in the waiting area until called. You will be registered and directed to the Imaging desk on the 1st floor. This process can take up to an hour. Make sure you allow enough time before your appointment to have your x-ray taken. - Follow Up Care Current Providers and Referrals: German Garcia DO [Doctor of Osteopathy] - 11/26/17 10:30 am Patient,NotPresent [Unknown] - As per Instructions
--- NOTE | 2017-11-21 12:07 | PDDCSUM ---
Discharge Summary Discharge Summary: ADMISSION DATE: 11/13/17 DISCHARGE DATE: 11/21/17 ADMISSION DIAGNOSES: 1. Acute myocardial infarction 2. Coronary artery atherosclerosis with prior stenting 3. CKD (baseline Cr 1.6) DISCHARGE DIAGNOSES: 1. Acute myocardial infarction 2. Coronary artery atherosclerosis with prior stenting 3. CKD (baseline Cr 1.6) 4. Acute blood loss anemia 5. Post-op cognitive impairment secondary to hypernatremia PROCEDURES 11/15/17, German Garcia: 1. Urgent CABGx3 (LOPEZ-LAD, SVG-LAD, SVG-D1, SVG-Ramus) 2. Ligation left atrial appendage 3. Endoscopic vein harvest left leg HOSPITAL COURSE BY PROBLEM LIST 1. Acute myocardial infarction with prior stenting - stable s/p CABGx3. Beta- luis, aspirin, and statin prescribed for secondary prevention. Plavix discontinued as stents were bypassed. 2. CKD - Cr of 1.2 on discharge with good urine output and without metabolic derangements. 3. Acute blood loss anemia - stable s/p 1U PRBC. 4. Post-op cognitive impairment secondary to hypernatremia - resolution with IV fluid administration. CONDITION Good DISPOSITION [facility] ACTIVITY Pt was instructed on sternal precautions, activity limitations, and which problems to call [facility] with. Please see Discharge Plan and Interagency Discharge Form in chart for specifics. DISCHARGE MEDICATIONS Continue: Emtricitabine/Tenofov Alafenam [Descovy 200-25 mg Tablet] 1 each PO HS 05/29/17 [Last Taken 11/12/17] Aspirin EC [Aspirin EC 325 mg (*)] 325 mg PO HS 11/13/17 [Last Taken 11/12/17] Atorvastatin Calcium [Lipitor 40 mg (*)] 80 mg PO HS 11/13/17 [Last Taken ] Esomeprazole Mag Trihydrate [Nexium] 80 mg PO HS 11/13/17 [Last Taken 11/12/17] Fluticasone Nasal [Flonase Nasal [place]] 2 sprays EACHNARE HS 11/13/17 [Last Taken 11/12/17] Gabapentin [Neurontin 300 MG (*)] 600 mg PO HS 11/13/17 [Last Taken 11/12/17] Levocetirizine Dihydrochloride [Xyzal] 5 mg PO HS 11/13/17 [Last Taken 11/12/17] Ondansetron Odt [Zofran Odt 4 mg (*)] 4 mg PO TID PRN 11/13/17 [Last Taken 11/13] Tivicay 50 mg PO HS 11/13/17 [Last Taken 11/12/17] [place] Carbonate 450 mg PO HS #0 11/21/17 [Last Taken 11/12/17] New: Metoprolol Tartrate [Lopressor 25 mg (*)] 25 mg PO BID tab 11/21/17 [Last Taken Unknown] Sennosides/Docusate Sodium [Senokot-S] 2 tab PO BID PRN tab 11/21/17 [Last Taken Unknown] guaiFENesin/DEXTROMETHORPHAN [Robitussin Dm Oral Liquid (*)] 10 ml PO Q4HRS PRN ml 11/21/17 [Last Taken Unknown] traMADol [Ultram 50 mg (*)] 50 - 100 mg PO Q4HRS PRN tab 11/21/17 [Last Taken Unknown] Stop: Plavix PENDING STUDIES/LABS 1. CXR prior to surgical follow-up FOLLOW-UP 1. German Garcia, 11/26/17, 10:30 AM
--- NOTE | 2017-11-21 14:51 | ASDISCHSUM ---
Discharge Information Plan Status:SNF Medically Cleared to Leave:11/21/2017 Discharge Date:11/21/2017 12:13 PM CM D/C Disposition: ADT D/C Disposition:Fdc Facility Projected Discharge Date:11/21/2017 11:00 AM Transportation at D/C: Discharge Delay Reason: Follow-Up Date:11/21/2017 11:00 AM Discharge Slot: Final Diagnosis: Placement Information Referral Type:*Alf/SNF Referral ID:[id number] Provider Name:[facility] Address 1:[address] Address 2: City:[place] Selection Factors: State:[place] Patient Contact Information Contact Name:LYDIA Relationship:Father Address:[address] [place] [address] Work Phone: City:[facility] Phone: [facility]/Zip Code:[place] [address] Email: Financial Information Financial Class:Medicare Advantage Plans Primary Plan Desc:RONIT CHOICE PPO MEDICARE Primary Plan Number:[id number] Secondary Plan Desc:[facility] [employer] Secondary Plan Number:[id number] Assessment Information [facility] Initial CM Assessment Living Arrangements What is your living Answers: Alone arrangement? Who do you live with? Type Of Residence What kind of residence do Answers: House you live in? Discharge Plan Comments Coordination Status Comments Notes: Pt is a 62 y/o man admitted for ACS. 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 Pt went to the [facility] [employer] today and requires an open heart. Needs are TBD at this time. CM to follow. Plan: TBD Date Signed: 11/14/2017 02:10 PM Electronically Signed By:SAVANAH Daniel [facility] CM Progress Note CM Note CM Note Notes: POD #2 of a CABG x 3. Therapies recommending SNF Rehab. Transferred to 2W. Date Signed: 11/17/2017 06:11 PM Electronically Signed By:Emely Rodriguez LCSW [facility] CM Progress Note CM Note CM Note Notes: 11/18/2017 Case Management Note Discussed case with PA and RN this morning. Met w/pt to discuss need for SNF rehab. Pt in agreement. [facility], [facility] and [facility]. Pt prefers to stay in [facility] if possible. Case Management d/c poc: SNF rehab pending acceptance and authorization from [facility]. Case Management to follow. Date Signed: 11/18/2017 10:37 AM Electronically Signed By:Amy Charles RN [facility] CM Progress Note CM Note CM Note Notes: 11/19/2017 Case Management Note Pt has triggering PASSR. Claims RepresentativeEmergency Room Clinician forwarded for review. Pt has chosen [facility]. [facility] running authorization. Case Management d/c poc: to [facility] pending authorization and review of PASSR. Case Management to follow. Date Signed: 11/19/2017 02:36 PM Electronically Signed By:Amy Charles RN [facility] Progress Note CM Note CM Note Notes: Updated PT/OT notes sent to [facility] who is seeking authorization from [facility]. We are also waiting on a approval of a Level II PASRR from the [facility]. Pending the above, patient will be set for discharge to [facility]. Current discharge plan: [facility] Date Signed: 11/20/2017 03:22 PM Electronically Signed By:Emma Cain RN Case Management Discharge Plan Note Case Management Discharge Discharge Order Complete? Answers: Yes Patient to Obtain Answers: Other Notes: [facility] Medications Transportation Arranged Answers: Other Notes: Vijay Arana daisy rt paid for by [facility] Transport will Pick (Date 11/21/2017 11:45 AM & Time) GEORGESALA Complete Answers: No Case Management Transport Answers: Yes Form Complete Faxed Final Orders Answers: Yes Agency/Facility Transfer Answers: Yes Report Printed & Faxed to Receiving Agency Family Notified Answers: No Discharge Comments Notes: CM spoke w/ Carlos DICKSON and Natividad, ARELIS regarding d/c POC. Pt is being discharged today to [facility]. CM coordinated d/c with Nikia at [facility]. CM sent d/c orders. CM provided ARELIS Henson w/ phone number to give report. CM available for changes. Plan: [facility] Date Signed: 11/21/2017 09:59 AM Electronically Signed By:SAVANAH Daniel Intervention Information Intervention Type:*IM-Signed Date of Service:11/21/2017 10:52 AM Patient Type:Inpatient Staff Member:Raissa Nobles Hours: Discipline: Severity: Comment:
== END 2017-11-21 12:13 | DRG 233 ==
LOC: EDUNIT# → F2W 18:30 → F2N 11-15 07:00 → F2W 11-17 17:13
PROVIDERS: ADMIT Thoracic Surgery (Cardiothoracic Vascular Surgery); ATTEND Thoracic Surgery (Cardiothoracic Vascular Surgery)
PROC: B2111ZZ Fluoroscopy of Multiple Coronary Arteries using Low Osmolar Contrast (ICD-10-PCS; 2017-11-14)
PROC: B2151ZZ Fluoroscopy of Left Heart using Low Osmolar Contrast (ICD-10-PCS; 2017-11-14)
PROC: 4A023N7 Measurement of Cardiac Sampling and Pressure, Left Heart, Percutaneous Approach (ICD-10-PCS; 2017-11-14)
PROC: 30233N1 Transfusion of Nonautologous Red Blood Cells into Peripheral Vein, Percutaneous Approach (ICD-10-PCS; 2017-11-15)
PROC: 02L70ZK Occlusion of Left Atrial Appendage, Open Approach (ICD-10-PCS; principal; 2017-11-15 08:15)
PROC: 06BQ4ZZ Excision of Left Saphenous Vein, Percutaneous Endoscopic Approach (ICD-10-PCS; principal; 2017-11-15 08:15)
PROC: 02100Z9 Bypass Coronary Artery, One Artery from Left Internal Mammary, Open Approach (ICD-10-PCS; principal; 2017-11-15 08:15)
PROC: 5A1221Z Performance of Cardiac Output, Continuous (ICD-10-PCS; principal; 2017-11-15 08:15)
PROC: 021109W Bypass Coronary Artery, Two Arteries from Aorta with Autologous Venous Tissue, Open Approach (ICD-10-PCS; principal; 2017-11-15 08:15)
DX: I21.4 Non-ST elevation (NSTEMI) myocardial infarction (principal); B20 Human immunodeficiency virus [HIV] disease; D62 Acute posthemorrhagic anemia; E87.0 Hyperosmolality and hypernatremia; F31.81 Bipolar II disorder; I25.10 Atherosclerotic heart disease of native coronary artery without angina pectoris; N18.9 Chronic kidney disease, unspecified; G31.84 Mild cognitive impairment of uncertain or unknown etiology; K21.9 Gastro-esophageal reflux disease without esophagitis; E78.5 Hyperlipidemia, unspecified; E66.9 Obesity, unspecified; M54.16 Radiculopathy, lumbar region; Z95.5 Presence of coronary angioplasty implant and graft
CPT/HCPCS: 82947-QW; 85520-90; 92507-GN; 92523-GN; 92526-GN; 92610-GN; 96365; 97116-GP; 97162-GP; 97166-GO; 97530-GO; 97530-GP; 97535-GO; C1760; G8987-GO-CM; G8988-GO-CK; J0153; J0282; J0690; J1265; J1644; J1815; J2001; J2150; J2250; J2260; J2270; J2370; J2405; J2440; J2704; J2720; J2930; J3010; J3475; J7060; P9016; P9041; Q9967

== ENCOUNTER 2017-11-24 22:11 | Observation (INO) | payer OTHER ==
--- NOTE | 2017-11-24 22:25 | EDPHY ---
H & P Time Seen by Provider: 11/24/17 22:21 HPI/ROS: HPI CHIEF COMPLAINT: Chest pain after CABG HISTORY OF PRESENT ILLNESS: Patient is 62-year-old male, well known to myself as well as the emergency room, he presents emergency room with 2 episodes of chest discomfort tonight. He describes them as anginal. In the center of his chest. Nonradiating. Lasting 2 min his 1st episode and 30 sec his 2nd episode relieved by nitroglycerin. He is referred here from [facility] where he is currently getting rehab after his CABG. He states that his chest pain is now gone at this time. Denies any shortness of breath or fever. Denies productive cough. He does state he has had a nonproductive cough. Past Medical History: Chronic low back pain, chronic back pain, hypertension, bipolar disorder, HIV, chronic kidney disease, coronary artery disease Past Surgical History: CABG last Saturday or 9 days ago Social History: Denies daily use of drugs alcohol tobacco. Currently residing at [facility] undergoing rehab. Family History: Noncontributory ROS REVIEW OF SYSTEMS: A comprehensive 10 point review of systems is otherwise negative aside from elements mentioned in the history of present illness. Exam Constitutional appears well nontoxic no acute distress, triage nursing summary reviewed, vital signs reviewed, awake/alert. Eyes normal conjunctivae and sclera, EOMI, PERRLA. HENT normal inspection, atraumatic, moist mucus membranes, no epistaxis, neck supple/ no meningismus, no raccoon eyes. Respiratory clear to auscultation bilaterally, normal breath sounds, no respiratory distress, no wheezing. Cardiovascular chest wall: Mild tenderness palpation large anterior chest wall incision that is clean, dry, intact, rate normal, regular rhythm, no murmur, no edema, distal pulses normal. Gastrointestinal soft, non-tender, no rebound, no guarding, normal bowel sounds, no distension, no pulsatile mass. Genitourinary no CVA tenderness. Musculoskeletal no midline vertebral tenderness, full range of motion, no calf swelling, no tenderness of extremities, no meningismus, good pulses, neurovascularly intact. Skin left leg where vein was removed shows ecchymosis but no signs infection, pink, warm, & dry, no rash, skin atraumatic. Neurologic awake, alert and oriented x 3, AAOx3, moves all 4 extremities equally, motor intact, sensory intact, CN II-XII intact, normal cerebellar, normal vision, normal speech. Psychiatric normal mood/affect. Heme/Lymph/Immune no lymphadenopathy. Differential diagnosis includes but is not limited to: ACS, atypical chest pain , pneumothorax, pneumonia, pulmonary embolism, aortic dissection, congestive heart failure, tumor, musculoskeletal pain, esophageal pain, GERD, peptic ulcer disease, pancreatitis Medical Decision Making: Plan for this patient IV establishment, obtain EKG, blood work, check troponin, chest x-ray, close monitoring. He is having chest pain that he describes angina after a CABG. He is currently chest pain-free upon arrival to the emergency room. Plan will be for readmission to the hospital Re-evaluation: EKG interpretation by me on record in [employer] system. Impression time of EKG 2223 this is sinus rhythm rate of 74 is a nonspecific intraventricular conduction delay T-wave abnormality V1 V2 subtle ST depression aVL Q-waves noted inferior leads to 3 AVF this is all very similar to previous EKG dated however the T-wave abnormality in V1 V2 slightly more pronounced. No ST elevation 1221: Patient re-evaluate is resting comfortably. His workup for chest pain in the setting of a recent UT and CABG shows an elevated troponin however it is difficult to assess if this troponin is acute or still elevated from his surgery. His EKG appears somewhat stable. His chest x-ray shows cardiomegaly with no failure. Plan for this patient I will consult cardiothoracic surgery as he just recently had a CABG nose having chest pain. Additionally will speak with the hospitalist about an observation admission overnight. 1239AM: Patient resting. However he did take his own nitroglycerin dose earlier comes he develops chest pain. He did not notify anybody. After taking the nitroglycerin is chest pain has resolved again. His blood pressure is currently 88/40. I requested that if he was going to take his own nitroglycerin that he looked notify his nursing staff for so we can monitor his blood pressure. 0218: Dr. Mayer spoke with cardiothoracic surgery. Reviewed the case. Does recommend hospital admission. Repeat troponin EKG an [address] Garcia know the patient will be admitted. Will admit to the hospitalist service Dr. Villagran. Source: Patient, EMS - Personal History Tetanus Vaccine Date: 2015 - Medical/Surgical History Hx Asthma: No Hx Chronic Respiratory Disease: No Hx Diabetes: No Hx Cardiac Disease: Yes Hx Renal Disease: Yes Hx Cirrhosis: No Hx Alcoholism: Yes Hx HIV/AIDS: Yes Hx Splenectomy or Spleen Trauma: No Other PMH: HIV, stents placed 2001 in [place] [address]. Lambert, lumbar fusion January 20 2015, spinal cord stimulator 01/10/2017, bipolar type 2, constipation, - Social History Smoking Status: Former smoker Constitutional: Initial Vital Signs O2 Sat (%) 93 11/24/17 22:05 O2 Delivery Mode Nasal Cannula O2 (L/minute) 2 Allergies/Adverse Reactions: oxycodone HCl [From OxyContin] Allergy (Verified 11/24/17 22:28) Itching oxycodone HCl Allergy (Unknown, Uncoded 11/24/17 22:28) Itching escalith Allergy (Uncoded 11/24/17 22:28) Home Medications: Medication Instructions Recorded Emtricitabine/Tenofov Alafenam 1 each PO HS 05/29/17 [Descovy 200-25 mg Tablet] Aspirin EC [Aspirin EC 325 mg (*)] 325 mg PO HS 11/13/17 Atorvastatin Calcium [Lipitor 40 80 mg PO HS 11/13/17 mg (*)] Dolutegravir Sodium [Tivicay] 50 mg PO HS #0 11/13/17 Esomeprazole Mag Trihydrate 80 mg PO HS 11/13/17 [Nexium] Fluticasone Nasal [Flonase Nasal 2 sprays EACH[place]ARE HS 11/13/17 [place]] Gabapentin [Neurontin 300 MG (*)] 600 mg PO HS 11/13/17 Levocetirizine Dihydrochloride 5 mg PO HS 11/13/17 [Xyzal] Ondansetron Odt [Zofran Odt 4 mg 4 mg PO TID PRN 11/13/17 (*)] [place] Carbonate 450 mg PO HS #0 11/21/17 Metoprolol Tartrate [Lopressor 25 25 mg PO BID tab 11/21/17 mg (*)] Sennosides/Docusate Sodium 2 tab PO BID PRN tab 11/21/17 [Senokot-S] guaiFENesin/DEXTROMETHORPHAN 10 ml PO Q4HRS PRN ml 11/21/17 [Robitussin Dm Oral Liquid (*)] traMADol [Ultram 50 mg (*)] 25 mg PO Q6H PRN #30 tab 11/25/17 Medical Decision Making - Data Points Laboratory Results: Laboratory Results 11/24/17 22:53 11/24/17 22:53 Medications Given: Discontinued Medications Aspirin Buffered (Aspirin Ec) 325 mg PO HS [facility] Stop: 05/24/18 04:29 Last Admin: 11/25/17 04:59 Dose: 325 mg Atorvastatin Calcium (Lipitor) 80 mg PO HS [facility] Stop: 05/24/18 04:29 Last Admin: 11/25/17 04:59 Dose: 80 mg Cetirizine HCl (Zyrtec) 10 mg PO HS [facility] Stop: 05/24/18 04:29 Last Admin: 11/25/17 04:59 Dose: 10 mg Fluticasone Propionate (Flonase Nasal [place]) 2 sprays E[place]ARE DAILY [facility] Stop: 05/24/18 08:59 Last Admin: 11/25/17 13:10 Dose: Not Given Gabapentin (Neurontin Oral Liquid) 600 mg PO HS [facility] Stop: 05/24/18 04:29 Last Admin: 11/25/17 05:01 Dose: 600 mg [place] Carbonate ([place] Carbonate) 450 mg PO HS [facility] Stop: 05/24/18 04:29 Last Admin: 11/25/17 04:59 Dose: 450 mg Metoprolol Tartrate (Lopressor) 25 mg PO BID [facility] Stop: 05/24/18 04:29 Last Admin: 11/25/17 08:12 Dose: 25 mg Pantoprazole Sodium (Protonix) 80 mg PO HS [facility] Stop: 05/24/18 04:29 Last Admin: 11/25/17 04:59 Dose: 80 mg Senna/Docusate Sodium (Senokot-S) 1 tab PO DAILY [facility] Stop: 05/24/18 08:59 Last Admin: 11/25/17 08:12 Dose: 1 tab Departure - Departure Disposition: [facility] Clinical Impression: Chest pain Qualifiers: Chest pain type: unspecified Qualified Code(s): R07.9 - Chest pain, unspecified Condition: Fair
--- NOTE | 2017-11-24 22:28 | CPEKG ---
Heart Rate: 74 RR Interval: 811 P-R Interval: 176 QRSD Interval: 110 QT Interval: 440 QTC Interval: 489 P Dimock: 61 QRS Dimock: 12 T Wave Dimock: 92 EKG Severity - ABNORMAL ECG - EKG Impression: SINUS RHYTHM EKG Impression: LEFT ATRIAL ABNORMALITY EKG Impression: NONSPECIFIC INTRAVENTRICULAR CONDUCTION DELAY Electronically Signed By: Lucas Sales 25-Nov-2017 07:18:38
[2017-11-24 23:06] LABS: PLATELET COUNT 508 10^3/uL (150-400)
[2017-11-24 23:15] LABS: INR 1.11 (0.83-1.16); PROTIME(PATIENT) 14.5 SEC (12.0-15.0)
[2017-11-24 23:20] LABS: CREATINE KINASE 90 IU/L (0-224)
[2017-11-25] MEDS ORDERED: ACETAMINOPHEN 325 MG TAB PO PRN (03:15)
[2017-11-25] MEDS ORDERED: ONDANSETRON 4 MG/2 ML VIAL IVP PRN (03:15)
[2017-11-25] MEDS ORDERED: LORazepam 0.5 MG TAB PO PRN (03:15)
[2017-11-25] MEDS ORDERED: NITROGLYCERIN 0.4 MG BTL SL PRN (03:17)
[2017-11-25] MEDS ORDERED: traMADol 50 MG TAB PO PRN (04:19)
[2017-11-25] MEDS ORDERED: GUAIFENESIN/DM 10 ML UDCUP PO PRN (04:20)
[2017-11-25] MEDS ORDERED: GABAPENTIN 250 MG/5 ML 30 ML BOTTLE PO SCH (04:30)
[2017-11-25] MEDS ORDERED: ASPIRIN EC 325 MG TAB PO SCH (04:30)
[2017-11-25] MEDS ORDERED: PANTOPRAZOLE SODIUM 40 MG TAB PO SCH (04:30)
[2017-11-25] MEDS ORDERED: CETIRIZINE 10 MG TAB PO SCH (04:30)
[2017-11-25] MEDS ORDERED: LITHIUM CARBONATE 300 MG TAB PO SCH (04:30)
[2017-11-25] MEDS ORDERED: ATORVASTATIN CALCIUM 40 MG TAB PO SCH (04:30)
[2017-11-25] MEDS: METOPROLOL TARTRATE 25 MG TAB PO SCH ×2 (04:59→08:12)
--- NOTE | 2017-11-25 06:07 | GHP ---
[f rep st] HISTORY AND PHYSICAL DATE OF ADMISSION: 11/25/2017 SOURCE: Patient provides history, appears reliable. 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 Case discussed with ED provider and EMR was reviewed. CHIEF COMPLAINT: Left-sided chest pain. HISTORY OF PRESENT ILLNESS: Very pleasant 62-year-old gentleman with past medical history significan t for hypertension, hyperlipidemia, coronary artery disease, status post recent CABG on 11/18/2017, H IV, chronic back pain, and CKD stage 3, who presents to the emergency department today from [facility] for complaints of episodes of intermittent chest pain. The patient reports that his sympto ms started this morning. They were not very prolonged, lasting just approximately a minute or less. The patient did have 1 that lasted a few minutes and took a nitroglycerin, which did relieve his sym ptoms. The patient later in the day again had episode of chest pain and felt he needed to come to [facility] emergency for further evaluation. He did not have any associated nausea, vomiting, diaphoresis, or associated shortness of breath. Patient does report he has been experiencing some shortness of jesus th since his surgery, but has had a left pleural effusion which has been improving. He has also note d a cough which has also been improving. He states he feels congested, but never coughed anything up . He denies any fevers or chills. Patient with chronic numbness, tingling in the left leg with noth ing acute. No headache. No focal deficits. REVIEW OF SYSTEMS: GENERAL: No fevers, chills. SKIN: No acute rashes, sores. Patient reports his wound is healing well. ENT: No congestion, sore throat. EYES: No acute changes in vision or ocula r pain. Patient does wear readers. CV: Chest pain per HPI. Does not radiate. RESPIRATORY: Dimin ished at the base with occasional crackle, cleared with coughing. No wheezes, rales, or rhonchi. Un labored breathing. ABDOMEN: Obese, soft, nontender to palpation. No rebound, guarding, or masses a ppreciated. EXTREMITIES: Patient without any cyanosis, clubbing, or edema appreciated. 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 No facial drooping. Moves all extremities. Strength 5/5 in upper and l ower extremities. ALLERGIES: Oxycodone and eskalith. HOME MEDICATIONS: Reviewed with the patient and as noted in the EMR. Tramadol 50-100 mg p.o. q.4 ho urs p.r.n. for pain, Robitussin DM 10 mL p.o. q.4 hours p.r.n. for cough, Tivicay 50 mg p.o. h.s., Se nokot-S 2 tabs p.o. b.i.d., reports daily, scheduled Zofran ODT 4 mg p.o. t.i.d. p.r.n., metoprolol t artrate 25 mg p.o. twice daily, lithium carbonate 450 mg p.o. at h.s., Xyzal levocetirizine 5 mg p.o. at h.s., gabapentin 600 mg p.o. at h.s., Flonase 2 sprays in each naris daily, Nexium 80 mg p.o. at nighttime. Emtricitabine and tenofovir, brand name is Descovy, 200/25 mg 1 tab at h.s., atorvastatin 80 mg p.o. at h.s., aspirin EC 325 mg p.o. at nighttime. PHYSICAL EXAMINATION: VITAL SIGNS: Upon arrival to the emergency department, blood pressure 116/61, heart rate 75, respiratory rate 20, O2 saturation 97% on 2 L by nasal cannula, temperature 36.7. Cu rrent vitals, blood pressure 120/71, heart rate 81, respiratory rate 18, O2 saturation 95% on 2 L by nasal cannula, temperature 36.5. GENERAL: No acute distress. Very pleasant adult gentleman, appear s slightly older than stated age, who is lying comfortably in bed awake. HEAD: Normocephalic, atrau matic. EYES: Extraocular muscles are intact. Pupils equal, round, react to light bilaterally and s ymmetric. No scleral icterus or conjunctival injection. ENT: Mucous membranes appear slightly dry. No oropharyngeal erythema or exudates. Dentition intact. No nasal discharge. CV: Regular rate a nd rhythm. There is a 2/6 systolic murmur appreciated. No rubs or gallops appreciated. The patient 's sternotomy incision is dry, clean, intact. There is no surrounding erythema or exudates. Lower e xtremities without any edema. No cyanosis or clubbing. RESPIRATORY: Patient with occasional bibasi lar crackles that do clear with coughing. Respiratory status is unlabored. Chest x-ray reviewed wit h the patient showing improvement in bilateral pleural effusion. ABDOMEN: Obese, soft, nontender to palpation. No rebound, guarding, or masses appreciated. NEURO: Grossly nonfocal. No facial droop ing. Moves all extremities symmetric. MUSCULOSKELETAL: The patient moves all extremities. He is a ble to sit up independently. He has some generalized deconditioning, but overall strength is adequat e. PSYCH: Thought process, content, and questions are appropriate. LABORATORY STUDIES: WBC 7.57, H and H are 10.0 and 30.5, MCV 92.1, platelet count is 508, no bands. PT is 14.5, INR is 1.11, PTT is 34.9, sodium is 141, potassium 4.4, chloride is 103, CO2 is 27, anio n gap 11, BUN 23, creatinine is 1.6, GFR of 44, glucose 99, calcium 9.2, total bilirubin 0.6, magnesi um 2.2, ALT 28, AST is 21, alkaline phosphatase is 78. CK is 90, CK-MB fraction 1.66, troponin 0.369 . BTNP is 1130. Total protein is 6.5, albumin 3.5, lipase 114. EKG reviewed myself showing normal sinus rhythm in the 70s with a left atrial abnormality, nonspecifi c intraventricular conduction delay. Q-waves in leads III, AVF, and subtle ST depression in the ante rolateral leads, T-wave inversion in V1, V2. Compared to EKG from 11/13/2017, that does show resolut ion of Q-waves previously present in the anterolateral leads. Q-wave in III, aVF is new. Chest x-ray: Image and report were reviewed myself, showing improvement in left lobe effusion. Pers istent cardiomegaly. No failure. Sternotomy wires and CABG clips present. ASSESSMENT AND PLAN: Very pleasant 62-year-old gentleman with recent discharge following non-ST segm ent elevation myocardial infarction, status post coronary artery bypass graft 5 days ago, who present s to the emergency department today with complaints of left-sided chest pain. 1. Chest pain is rather atypical, very short lived, but patient does report that it is improved with use of nitroglycerin. Patient did attempt to take a half tab of nitroglycerin in the emergency depa rtment and notified nursing staff, and so his blood pressures declined rapidly initially of unclear e tiology, but then clarified. The patient is currently denying any chest pain. His troponin was foun d to be slightly elevated, but not surprising following a coronary artery bypass graft. CT Surgery o n-call was notified and recommended the troponins and EKG be cycled at least 1 more time, followed by a consultation with Dr. Garcia. The patient currently appears quite comfortable. We will give the p atient his evening aspirin and resume his home medications, including beta luis. 2. Coronary artery disease. Resume patient's statin, beta-luis, aspirin. Patient with a history of chronic renal insufficiency. He is not currently on an JOSE CARLOS or an ARB. Will further evaluate mikayla orrow reason for this medication missing. 3. Anemia, acute blood loss from surgery. H and H are stable. No evidence of active bleeding. Con tinue to monitor. 4. Benign essential hypertension. Blood pressures are acceptable at this time. Resume patient's me toprolol. 5. Hyperlipidemia. Continue statin. 6. Bipolar disorder. Continue lithium. 7. Lumbar radiculopathy with sciatica. Continue gabapentin, supportive care, pain medication. 8. Gastroesophageal reflux disease. Continue proton pump inhibitor. 9. Chronic kidney disease stage 3 with baseline creatinine of approximately 1.5, appears stable. 10. Obesity, currently resolved. Patient's body mass index is down to 28. 11. Human immunodeficiency virus. The patient presented to the emergency department from [facility] without any accompanying home medications. Unfortunately, his human immunodeficiency virus medic ations are not on our formulary, but will try to see if we can arrange for medications to be delivere d or obtained from retail pharmacy. The patient reports that he is due at 6 a.m. 12. Left pleural effusion appears to be improving significantly. Continue to encourage mobilization and incentive spirometer. 13. Thrombocytosis, likely reactive following coronary artery bypass graft. Continue to monitor his a.m. labs. 14. Fluid, electrolyte, nutrition. Will place on cardiac diet with low salt. Patient reports that his lower extremity edema has improved significantly and is at present. 15. Monitor electrolytes. Replace as needed. 16. Prophylaxis. Sequential compression devices and holding anticoagulation pending surgical evalua tion. 17. COR status is full. Patient desires his father and sister act as proxy if needed. DISPOSITION: Patient admitted to observation status at this time on PCU. Will reassess in the [facility] following recommendations from Dr. Garcia and repeat laboratory studies. The patient's current franco n and medical status were reviewed with him, including review of the EMR, and the patient agrees with staying for repeated troponins and evaluation by CT Surgery. Anticipate less than 2 midnight stay. /[id number]/MODL
[2017-11-25 06:20] LABS: PLATELET COUNT 464 10^3/uL (150-400)
--- NOTE | 2017-11-25 08:45 | CPEKG ---
Heart Rate: 70 RR Interval: 857 P-R Interval: 172 QRSD Interval: 102 QT Interval: 440 QTC Interval: 475 P Schroeder: 63 QRS Schroeder: 2 T Wave Schroeder: 93 EKG Severity - ABNORMAL ECG - EKG Impression: SINUS RHYTHM EKG Impression: LEFT ATRIAL ABNORMALITY EKG Impression: NONSPECIFIC T ABNORMALITIES, ANT-LAT LEADS EKG Impression: QTc is more prolonged in comparison to prior Electronically Signed By: Wilmer Triplett 25-Nov-2017 12:25:30
[2017-11-25] MEDS ORDERED: SENNOSIDES/DOCUSATE SODIUM TAB PO SCH (09:00)
[2017-11-25] MEDS ORDERED: FLUTICASONE NASAL 120 SPRAYS/16 GM MDI EACHNARE SCH (09:00)
[2017-11-25 11:16] VITALS: BP 108/70
--- NOTE | 2017-11-25 11:28 | SOAPPROG ---
SOAP Progress Note Assessment/Plan: Assessment: Plan: 11/25/17 11:27 atypical post sternotomy chest pain, no further w/u necessary f/u in office Objective: Vital Signs Temp Pulse Resp BP Pulse Ox 36.8 C 74 18 108/70 98 11/25/17 11:15 11/25/17 11:15 11/25/17 11:15 11/25/17 11:15 11/25/17 11:15 Laboratory Results 11/25/17 06:11 11/25/17 06:11 11/24/17 11/25/17 11/26/17 05:59 05:59 05:59 Intake Total 200 Output Total 500 Balance -300 PT 14.5 SEC (12.0-15.0) 11/24/17 22:53 INR 1.11 (0.83-1.16) 11/24/17 22:53 ICD10 Worksheet Patient Problems: Problems Problem Status Onset Chest pain Acute Acute blood loss anemia Acute Acute coronary syndrome Acute Low back pain Acute S/P CABG x 3 Acute ~11/15/17
--- NOTE | 2017-11-25 11:45 | PDIAF ---
- Diagnosis Diagnosis: chest pain Code Status: Full Code - Medication Management Discharge Medications: Medications to Continue on Transfer Emtricitabine/Tenofov Alafenam [Descovy 200-25 mg Tablet] 1 each PO HS 05/29/17 [Last Taken 11/12/17] Aspirin EC [Aspirin EC 325 mg (*)] 325 mg PO HS 11/13/17 [Last Taken 11/12/17] Atorvastatin Calcium [Lipitor 40 mg (*)] 80 mg PO HS 11/13/17 [Last Taken ] Dolutegravir Sodium [Tivicay] 50 mg PO HS #0 11/13/17 [Last Taken 11/12/17] Esomeprazole Mag Trihydrate [Nexium] 80 mg PO HS 11/13/17 [Last Taken 11/12/17] Fluticasone Nasal [Flonase Nasal [place]] 2 sprays [place] HS 11/13/17 [Last Taken 11/12/17] Gabapentin [Neurontin 300 MG (*)] 600 mg PO HS 11/13/17 [Last Taken 11/12/17] Levocetirizine Dihydrochloride [Xyzal] 5 mg PO HS 11/13/17 [Last Taken 11/12/17] Ondansetron Odt [Zofran Odt 4 mg (*)] 4 mg PO TID PRN 11/13/17 [Last Taken 11/13] [place] Carbonate 450 mg PO HS #0 11/21/17 [Last Taken 11/12/17] Metoprolol Tartrate [Lopressor 25 mg (*)] 25 mg PO BID tab 11/21/17 [Last Taken Unknown] Sennosides/Docusate Sodium [Senokot-S] 2 tab PO BID PRN tab 11/21/17 [Last Taken Unknown] guaiFENesin/DEXTROMETHORPHAN [Robitussin Dm Oral Liquid (*)] 10 ml PO Q4HRS PRN ml 11/21/17 [Last Taken Unknown] traMADol [Ultram 50 mg (*)] 25 mg PO Q6H PRN #30 tab 11/25/17 [Last Taken Unknown] Discharge Medications: Refer to the Discharge Home Medication list for PRN reason. - Orders Services needed: Registered Nurse, Certified Automotive Design Layout Drafter, Master Sewage Plant Supervisor , Physical Therapy, Occupational Therapy Isolation Type: None Diet Recommendation: no restrictions on diet, cardiac -low fat low salt Diet Texture: Regular Texture Diet - Follow Up Care Current Providers and Referrals: Lucas Cook MD [Primary Care Provider] - As per Instructions
--- NOTE | 2017-11-25 12:56 | ASMTLACE ---
LACE Length of stay for Answers: Less than 1 day current admission Acuity / Level of Answers: No Care: Did the patient have an inpatient admission? Comorbidities - select Answers: Coronary Artery Disease all that apply Opioid dependence / Chronic pain Other Notes: CABG, CKD stage 3, HIV positive # of Emergency department Answers: 5-8 visits in the last 6 months Social determinants Answers: Mental health diagnosis (anxiety, depression, pers onality disorders, etc.) Score: 14 Date Signed: 11/25/2017 12:56 PM Electronically Signed By:Amy Charles RN
--- NOTE | 2017-11-25 14:05 | ASDISCHSUM ---
Discharge Information Plan Status:SNF Medically Cleared to Leave:11/25/2017 Discharge Date:11/25/2017 01:35 PM CM D/C Disposition:[facility] Facility ADT D/C Disposition:[facility] Facility Projected Discharge Date:11/25/2017 11:00 AM Transportation at D/C:Wheelchair Van Discharge Delay Reason: Follow-Up Date:11/25/2017 11:00 AM Discharge Slot: Final Diagnosis: Placement Information Referral Type:*Fdc/SNF Referral ID:[id number] Provider Name:[facility] Address 1:[address] Address 2: City:[place] Selection Factors: State:[place] Patient Contact Information Contact Name:LYDIA Relationship:Father Address:[address] [place] [address] Work Phone: City:[facility] Phone: [facility]/Zip Code:[place] [address] Email: Financial Information Financial Class:Medicare Advantage Plans Primary Plan Desc:RONIT KATZ JESUSO MEDICARE Primary Plan Number:[id number] Secondary Plan Desc:[facility] COST ASSIST Secondary Plan Number:[id number] Assessment Information LACE LACE Length of stay for Answers: Less than 1 day current admission Acuity / Level of Answers: No Care: Did the patient have an inpatient admission? Comorbidities - select Answers: Coronary Artery Disease all that apply Opioid dependence / Chronic pain Other Notes: CABG, CKD stage 3, HIV positive # of Emergency department Answers: 5-8 visits in the last 6 months Social determinants Answers: Mental health diagnosis (anxiety, depression, pers onality disorders, etc.) Score: 14 Date Signed: 11/25/2017 12:56 PM Electronically Signed By:Amy Charles RN Case Management Discharge Plan Note Case Management Discharge Discharge Order Complete? Answers: Yes Patient to Obtain Answers: Other Notes: [facility] Medications Transportation Arranged Answers: Other Notes: arranged by [facility] Faxed Final Orders Answers: Yes Agency/Facility Transfer Answers: Yes Report Printed & Faxed to Receiving Agency Discharge Comments Notes: 11/25/2017 Case Management Note Pt to d/c back to [facility]. Bessy arranged transportation. Faxed final orders. RN to call report. Date Signed: 11/25/2017 12:52 PM Electronically Signed By:Amy Charles RN Intervention Information Intervention Type:HADDAD-Refused Date of Service:11/25/2017 09:35 AM Patient Type:Observation Staff Member:Raissa Nobles Hours: Discipline: Severity: Comment:Patient stated he did not want to sign the Medicare form. I left a copy with him and provided my office number if he beach d any further questions.
--- NOTE | 2017-11-25 16:10 | GDS ---
[f rep st] DISCHARGE SUMMARY DISCHARGE DIAGNOSES: 1. Coronary artery disease, status post coronary artery bypass graft. 2. Atypical chest pain secondary to sternotomy. 3. Normocytic anemia. 4. Benign hypertension. 5. Hyperlipidemia. 6. Bipolar disorder. 7. Lumbar radiculopathy with sciatica. 8. Gastroesophageal reflux disease. 9. Chronic kidney disease 3, baseline creatinine is 1.5. 10. Obesity. 11. Human immunodeficiency virus. 12. Chronic hypoxic respiratory failure. HISTORY OF PRESENT ILLNESS: A 62-year-old male with a past medical history of hypertension, hyperlipidemia, coronary artery disease status post CABG on 2017, HIV, brought in from [facility] for episodes of intermittent chest pain. They started yesterday morning, did not last very long, less than a minute. He took nitroglycerin which did relieve his symptoms. He had a similar episode later in the day and felt he needed to come to the ER. He did not have associated nausea, vomiting, diaphoresis, or shortness of breath. He has had a cough which has nearly resolved. No fevers, chills, or sweats. HOSPITAL COURSE BY PROBLEM: 1. Atypical chest pain: Suspect this is secondary to sternotomy. The incision site looks clean. No evidence of infection. Troponin was elevated at 0.93, but this is down from 1.5 on 11/14/2017. He was evaluated by Dr. Garcia, who agrees no further intervention warranted. 2. Coronary artery disease, status post CABG on 11/18. Continue aspirin, statin, beta luis. 3. Hypertension. Resume home medications. 4. HIV. Resume HAART therapy. 5. GERD. Protonix. 6. Bipolar disorder. [place]. 7. Radiculopathy. Gabapentin. 8. CKD. Creatinine is stable at 1.4. 9. Normocytic anemia. H and H 9.7, 38.2, which is stable from his discharge date. No evidence of bleeding. 10. Deconditioning: Patient initially wanted to go home instead of back to [facility]; however, we encouraged him to participate in as much therapy as possible, given recent CABG, and he is agreeable. Will transfer back today. 11. Chronic hypoxic respiratory failure: This is secondary to effusion after surgery. We will continue this. There is no evidence of volume overload on x- ray here. MEDICATIONS: No medication changes. FOLLOW UP: 1. Dr. Garcia. 2. Primary care physician. PHYSICAL EXAMINATION: VITAL SIGNS: Today, temperature 36.8, blood pressure 108 /70, heart rate 74, respirations 18, 98% on 2 L. GENERAL: Lying in bed, in no acute distress. HEENT: PERRLA. Moist mucous membranes. CV: Regular rate and rhythm. Sternum incision is clean, dry, and intact. No evidence of infection. No lower extremity edema. LUNGS: Clear. No crackles. GI: Soft, nontender, nondistended. Positive bowel sounds. : No [place]. MUSCULOSKELETAL: 5/5 upper and lower extremity strength. NEUROLOGIC: 2 through 12 intact. /[id number]/MODL Time spent on DC >30min coordinating DC with CT surgery and case management. GENEVA
== END 2017-11-25 13:35 ==
LOC: EDUNIT# → F2W 11-25 03:16
PROVIDERS: ADMIT Family Medicine; ATTEND Family Medicine
DX: G89.22 Chronic post-thoracotomy pain (principal); I25.10 Atherosclerotic heart disease of native coronary artery without angina pectoris; Z95.1 Presence of aortocoronary bypass graft; D64.9 Anemia, unspecified; I12.9 Hypertensive chronic kidney disease with stage 1 through stage 4 chronic kidney disease, or unspecified chronic kidney disease; E78.5 Hyperlipidemia, unspecified; F31.9 Bipolar disorder, unspecified; M54.16 Radiculopathy, lumbar region; M54.40 Lumbago with sciatica, unspecified side; K21.9 Gastro-esophageal reflux disease without esophagitis; N18.3 Chronic kidney disease, stage 3 (moderate); E66.9 Obesity, unspecified; J96.11 Chronic respiratory failure with hypoxia; B20 Human immunodeficiency virus [HIV] disease
CPT/HCPCS: 71045; 93005; G0378

== ENCOUNTER 2017-11-26 23:02 | Emergency (ER) | payer OTHER ==
--- NOTE | 2017-11-26 23:11 | CPEKG ---
Heart Rate: 79 RR Interval: 759 P-R Interval: 172 QRSD Interval: 108 QT Interval: 444 QTC Interval: 510 P [place]: 58 QRS [place]: 8 T Wave [place]: 104 EKG Severity - ABNORMAL ECG - EKG Impression: SINUS RHYTHM EKG Impression: LEFT ATRIAL ABNORMALITY EKG Impression: PROLONGED QT INTERVAL Electronically Signed By: Asif Christine 27-Nov-2017 05:39:59
--- NOTE | 2017-11-26 23:44 | EDPHY ---
H & P Stated Complaint: chest pain, s/p CABG x 3 9 days ago Time Seen by Provider: 11/26/17 23:11 HPI/ROS: Chief Complaint: Chest pain HPI: A 62-year-old male who is 9 days status post coronary artery bypass graft by Dr. Garcia. At 7:30 a.m. This evening patient developed left-sided chest pain which went away with nitroglycerin x2. He had a similar episode 2 days ago was seen here and admitted. He was seen by Dr. Orquidea duenas yesterday who felt that this was chest wall pain secondary to his incision. Patient states that the pain he had tonight was exactly the same as the pain ER 2 days ago. At worst was a 3/10. It came on when he was at rest. No shortness of breath. He has been pain-free since that time. He is not currently on any other pain medications other than occasional Tylenol. No nausea or vomiting. No constipation. ROS: 10 point Review of Systems is negative except as noted in the HPI. Social History: No smoking, no alcohol, no recreational drug use Family History: non-contributory Physical Exam: Gen: Awake, Alert, No Distress HEENT: Nose: no rhinorrhea Eyes: PERRLA, EOMI Mouth: Moist mucosa Neck: Supple, no JVD Chest: Healing midline incision without erythema, dehiscence or discharge. Patient has reproducible chest wall tenderness in the midclavicular line at ribs 3 and 4 reproducing his presenting complaint., lungs clear to auscultation Heart: S1, S2 normal, no murmur Abd: Soft, non-tender, no guarding Back: no CVA tenderness, no midline tenderness Ext: no edema, non-tender Skin: no rash Neuro: CN II-XII intact, Sensation grossly intact, Strength 5/5 in bilateral upper and lower extremities - Personal History Tetanus Vaccine Date: 2015 - Medical/Surgical History Hx Asthma: No Hx Chronic Respiratory Disease: No Hx Diabetes: No Hx Cardiac Disease: Yes Hx Renal Disease: Yes Hx Cirrhosis: No Hx Alcoholism: Yes Hx HIV/AIDS: Yes Hx Splenectomy or Spleen Trauma: No Other PMH: HIV, stents placed [address] [place] [address] Lambert, lumbar fusion January 20 2015, spinal cord stimulator 01/10/2017, bipolar type 2, constipation, - Social History Smoking Status: Former smoker Constitutional: Initial Vital Signs Temperature (C) 36.9 C 11/26/17 23:00 Heart Rate 76 11/26/17 23:00 Respiratory Rate 20 11/26/17 23:00 Blood Pressure 105/72 11/26/17 23:00 O2 Sat (%) 96 11/26/17 23:00 O2 Delivery Mode Nasal [place] O2 (L/minute) 2 Allergies/Adverse Reactions: oxycodone HCl [From OxyContin] Allergy (Verified 11/26/17 23:12) Itching escalith Allergy (Severe, Uncoded 11/26/17 23:12) oxycodone HCl Allergy (Unknown, Uncoded 11/26/17 23:12) Itching Home Medications: Medication Instructions Recorded Emtricitabine/Tenofov Alafenam 1 each PO HS 05/29/17 [Descovy 200-25 mg Tablet] Aspirin EC [Aspirin EC 325 mg (*)] 325 mg PO HS 11/13/17 Atorvastatin Calcium [Lipitor 40 80 mg PO HS 11/13/17 mg (*)] Dolutegravir Sodium [Tivicay] 50 mg PO HS #0 11/13/17 Esomeprazole Mag Trihydrate 80 mg PO HS 11/13/17 [Nexium] Fluticasone Nasal [Flonase Nasal 2 sprays EACHNARE HS 11/13/17 [place]] Gabapentin [Neurontin 300 MG (*)] 600 mg PO HS 11/13/17 Levocetirizine Dihydrochloride 5 mg PO HS 11/13/17 [Xyzal] Ondansetron Odt [Zofran Odt 4 mg 4 mg PO TID PRN 11/13/17 (*)] [place] Carbonate 450 mg PO HS #0 11/21/17 Metoprolol Tartrate [Lopressor 25 25 mg PO BID tab 11/21/17 mg (*)] Sennosides/Docusate Sodium 2 tab PO BID PRN tab 11/21/17 [Senokot-S] guaiFENesin/DEXTROMETHORPHAN 10 ml PO Q4HRS PRN ml 11/21/17 [Robitussin Dm Oral Liquid (*)] traMADol [Ultram 50 mg (*)] 25 mg PO Q6H PRN #30 tab 11/25/17 Medical Decision Making - Diagnostics EKG Interpretation: ECG time 11:09 p.m., sinus rhythm with a rate of 79, there is a left atrial abnormality and ROS, prolonged QT interval at 487. There are T-wave inversions in V1 V2 to V3. The ECG is unchanged from 1 on 11/25/2017. ED Course/Re-evaluation: I have discussed case with Dr. Garcia, the patient's cardiothoracic surgeon. He he feels that the pain, which is exactly like the pain patient had 2 days ago, is incisional. Does not believe that this represents an acute occlusion or ischemia. Patient has no acute changes on his ECG. He recommends that the patient be discharged back to his residential facility. I have discussed with the patient he is comfortable with this plan. Departure - Departure Disposition: Home, Routine, Self-Care Clinical Impression: Chest wall pain Condition: Good Instructions: Chest Wall Pain (ED) Additional Instructions: Follow up with your cardiothoracic surgeon in 3-4 days for further evaluation. Please resume your usual postoperative medications. Return to the emergency department for worsening severe substernal chest pain, shortness of breath, lightheadedness or fainting, or any other concerns. Referrals: Lucas Cook MD [Primary Care Provider] - As per Instructions
[2017-11-27 00:09] VITALS: BP 101/68
== END 2017-11-27 00:34 | disposition home or self-care (01) ==
LOC: EDUNIT#
DX: G89.18 Other acute postprocedural pain (principal); R07.89 Other chest pain; B20 Human immunodeficiency virus [HIV] disease; Z79.82 Long term (current) use of aspirin; Z87.891 Personal history of nicotine dependence

== ENCOUNTER → 2017-12-03 | Outpatient (CLI) | payer OTHER | LOC: FIMAGING 08:23 → EDSTATUS 08:24 | PROVIDERS: ATTEND Thoracic Surgery (Cardiothoracic Vascular Surgery) | DX: R91.8 Other nonspecific abnormal finding of lung field (principal); Z95.1 Presence of aortocoronary bypass graft ==

== ENCOUNTER 2017-12-13 08:35 | Emergency (ER) | payer OTHER ==
--- NOTE | 2017-12-13 08:52 | CPEKG ---
Heart Rate: 82 RR Interval: 732 P-R Interval: 168 QRSD Interval: 106 QT Interval: 360 QTC Interval: 421 P [place]: 73 QRS [place]: 32 EKG Severity - ABNORMAL ECG - EKG Impression: SINUS RHYTHM EKG Impression: LEFT ATRIAL ABNORMALITY EKG Impression: NONSPECIFIC T ABNORMALITIES, LATERAL LEADS Electronically Signed By: Jose De Jesus Palacios 16-Dec-2017 08:58:11
--- NOTE | 2017-12-13 09:11 | EDPHY ---
HPI/HX/ROS/PE/MDM Narrative: CHIEF COMPLAINT: Chest pain HPI: The patient is a 62 y/o male with an extensive medical history including CAD status post 10 stents and recent emergent CABG x3 last month complaining of waxing and waning chest pain since that procedure. He describes his pain as left -sided and substernal with tenderness to light touch over his sternotomy. This pain feels distinct from the the exertional chest pain leading up to his prior stents and different from the "reflux" symptoms he felt prior to his recent CABG. He also complains of an intermittent cough that he attributes to atelectasis and right leg pain that he thinks could be from his chronic lumbar radiculopathy. This combined with his chest pain has made it difficult to sleep. He is currently using narcotics for pain. No acute dyspnea, nausea, diaphoresis. REVIEW OF SYSTEMS: Aside from elements discussed in the HPI, a comprehensive 10-point review of systems was reviewed and is negative. PMH: 1. HIV, well controlled 2. CAD, 10 stents, CABGx3 11/15/17 3. [place] 4. GERD - Protonix 5. Bipolar type 2 - [place] 6. Hyperlipidemia 7. Osteoporosis 8. Chronic bronchitis, chronic hypoxic respiratory failure 9. Anemia 10. Obesity 11. Chronic kidney disease, baseline creatinine 1.5 12. Hypertension 13. Lumbar radiculopathy with sciatica SOCIAL HISTORY: History of polysubstance abuse. 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 Currently in cardiac rehab at [facility]. Prior medical records reviewed including admission 11/13/17 and operative note 11/15/17 for chest pain, [place], CABG. PHYSICAL EXAM: General:Patient is alert, in no acute distress. ENT:Eyes are normal to inspection. ENT inspection normal. Neck: Normal inspection. Full range of motion. Respiratory:No respiratory distress. Breath sounds normal bilaterally. Cardiovascular: Regular rate and rhythm. Strong peripheral pulses. Normal cap refill. Chest: Sternotomy incision is clean, dry, intact. Abdomen:The abdomen is nontender to palpation. There are no peritoneal signs. Back: Normal to inspection. No tenderness to palpation. Skin: Normal color. No rash. Warm and dry. Extremities: Normal appearance. Full range of motion. Neuro: Oriented x3. Normal motor function. Normal sensory function. ED Course: This is a 62 y/o male with extensive medical history including recent emergent 3 -vessel cardiac bypass who presents with waxing and waning chest pain following this surgery. He also complains of a mild cough and right leg pain. His sternotomy is clean, dry, and intact. Exam is otherwise unremarkable. I suspect his pain is secondary to his sternotomy, but will evaluate for acute cardiac issues and DVT. Plan for IV, labs, EKG, chest x-ray, and right leg US. The 12 lead EKG was interpreted by myself. See hard copy and/or "tracemaster" electronic copy for interpretation. Chest x-ray: negative Leg US is negative for DVT per Dr. Alvarez, radiologist. Reassessed patient and discussed work up, which has been negative thus far. Labs unremarkable including troponin. Exam is unchanged. He feels comfortable returning home at this time. Recommended standard care and follow up as directed by his city editor. Return precautions discussed. He is comfortable with this plan. - Data Points Imaging Results: Imaging Impressions Chest X-Ray 12/13/17 08:46 Impression: 1. No active cardiopulmonary disease seen. Extremity Venous Study 12/13/17 09:09 Impression: There is no sonographic evidence of deep or superficial vein thrombosis in the right lower extremity. Findings were conveyed to Tarik, the ER technologist, who will convey the information to Darron Sam MD at 9:46, on 12/13/2017. Imaging: Discussed imaging studies w/ call center dispatcher Radiologist, I viewed and interpreted images myself Laboratory Results: Laboratory Results 12/13/17 09:11 12/13/17 09:11 12/13/17 12/13/17 09:11 09:11 WBC 5.96 10^3/uL 10^3/uL (3.80-9.50) RBC 3.44 10^6/uL L 10^6/uL (4.40-6.38) Hgb 10.3 g/dL L g/dL (13.7-17.5) Hct 31.8 % L % (40.0-51.0) MCV 92.4 fL fL (81.5-99.8) MCH 29.9 pg pg (27.9-34.1) MCHC 32.4 g/dL g/dL (32.4-36.7) RDW 14.9 % % (11.5-15.2) Plt Count 296 10^3/uL 10^3/uL (150-400) MPV 9.5 fL fL (8.7-11.7) Neut % (Auto) 39.0 % L % (39.3-74.2) Lymph % (Auto) 48.3 % H % (15.0-45.0) [place] % (Auto) 7.4 % % (4.5-13.0) Eos % (Auto) 4.4 % % (0.6-7.6) Baso % (Auto) 0.7 % % (0.3-1.7) Nucleat RBC Rel Count 0.0 % % (0.0-0.2) Absolute Neuts (auto) 2.33 10^3/uL 10^3/uL (1.70-6.50) Absolute Lymphs (auto) 2.88 10^3/uL 10^3/uL (1.00-3.00) Absolute Monos (auto) 0.44 10^3/uL 10^3/uL (0.30-0.80) Absolute Eos (auto) 0.26 10^3/uL 10^3/uL (0.03-0.40) Absolute Basos (auto) 0.04 10^3/uL 10^3/uL (0.02-0.10) Absolute Nucleated RBC 0.00 10^3/uL 10^3/uL (0-0.01) Immature Gran % 0.2 % % (0.0-1.1) Immature Gran # 0.01 10^3/uL 10^3/uL (0.00-0.10) Sodium 143 mEq/L mEq/L (135-145) Potassium 4.6 mEq/L mEq/L (3.5-5.2) Chloride 109 mEq/L mEq/L (97-110) Carbon Dioxide 20 mEq/l L mEq/l (22-31) Anion Gap 14 mEq/L mEq/L (8-16) BUN 20 mg/dL mg/dL (7-23) Creatinine 1.3 mg/dL mg/dL (0.7-1.3) Estimated GFR 56 Glucose 103 mg/dL H mg/dL (70-100) Calcium 9.0 mg/dL mg/dL (8.5-10.4) Troponin I < 0.012 ng/mL ng/mL (0.000-0.034) General Time Seen by Provider: 12/13/17 08:45 Initial Vital Signs: Initial Vital Signs Temperature (C) 36.8 C 12/13/17 08:50 Heart Rate 85 12/13/17 08:50 Respiratory Rate 18 12/13/17 08:50 Blood Pressure 126/87 H 12/13/17 08:50 O2 Sat (%) 96 12/13/17 08:50 O2 Delivery Mode Room Air Allergies/Adverse Reactions: oxycodone HCl [From OxyContin] Allergy (Verified 11/26/17 23:12) Itching escalith Allergy (Severe, Uncoded 11/26/17 23:12) oxycodone HCl Allergy (Unknown, Uncoded 11/26/17 23:12) Itching Home Medications: Medication Instructions Recorded Emtricitabine/Tenofov Alafenam 1 each PO HS 05/29/17 [Descovy 200-25 mg Tablet] Aspirin EC [Aspirin EC 325 mg (*)] 325 mg PO HS 11/13/17 Atorvastatin Calcium [Lipitor 40 80 mg PO HS 11/13/17 mg (*)] Dolutegravir Sodium [Tivicay] 50 mg PO HS #0 11/13/17 Esomeprazole Mag Trihydrate 80 mg PO HS 11/13/17 [Nexium] Fluticasone Nasal [Flonase Nasal 2 sprays [place]ACH[place]ARE HS 11/13/17 [place]] Gabapentin [Neurontin 300 MG (*)] 600 mg PO HS 11/13/17 Levocetirizine Dihydrochloride 5 mg PO HS 11/13/17 [Xyzal] Ondansetron Odt [Zofran Odt 4 mg 4 mg PO TID PRN 11/13/17 (*)] [place] Carbonate 450 mg PO HS #0 11/21/17 Metoprolol Tartrate [Lopressor 25 25 mg PO BID tab 11/21/17 mg (*)] Sennosides/Docusate Sodium 2 tab PO BID PRN tab 11/21/17 [Senokot-S] guaiFENesin/DEXTROMETHORPHAN 10 ml PO Q4HRS PRN ml 11/21/17 [Robitussin Dm Oral Liquid (*)] traMADol [Ultram 50 mg (*)] 25 mg PO Q6H PRN #30 tab 11/25/17 Departure - Departure Disposition: Home, Routine, Self-Care Clinical Impression: Chest pain Qualifiers: Chest pain type: other chest pain Qualified Code(s): R07.89 - Other chest pain ; R07.8 - Other chest pain Leg pain Qualifiers: Laterality: right Qualified Code(s): M79.604 - Pain in right leg Condition: Good Instructions: Chest Pain (ED), Leg Pain (ED) Additional Instructions: Follow up with your city editor as scheduled and primary care provider as needed. Return to the ED for worsening of condition. Referrals: Lucas Cook MD [Primary Care Provider] - As per Instructions Report Scribed for: Darron Sam Report Scribed by: Noemí Betancourt Date of Report: 12/13/17 Time of Report: 09:11 Physician Review and Approval Statement: Portions of this note were transcribed by an ED scribe. I personally performed the history, physical exam, and medical decision making; and confirm the accuracy of the information in the transcribed note.
[2017-12-13 09:20] LABS: PLATELET COUNT 296 10^3/uL (150-400)
[2017-12-13 10:52] VITALS: BP 114/71
== END 2017-12-13 10:52 | disposition home or self-care (01) ==
DX: R07.89 Other chest pain (principal); M79.604 Pain in right leg; B20 Human immunodeficiency virus [HIV] disease; I25.2 Old myocardial infarction; I25.810 Atherosclerosis of coronary artery bypass graft(s) without angina pectoris; I12.9 Hypertensive chronic kidney disease with stage 1 through stage 4 chronic kidney disease, or unspecified chronic kidney disease; N18.9 Chronic kidney disease, unspecified; Z95.5 Presence of coronary angioplasty implant and graft; Z79.82 Long term (current) use of aspirin

== ENCOUNTER 2018-01-13 20:15 | Emergency (ER) | payer OTHER ==
--- NOTE | 2018-01-13 20:44 | CPEKG ---
Heart Rate: 87 RR Interval: 690 P-R Interval: 168 QRSD Interval: 100 QT Interval: 364 QTC Interval: 438 P [place]: 42 QRS [place]: 14 T Wave [place]: 123 EKG Severity - ABNORMAL ECG - EKG Impression: SINUS RHYTHM EKG Impression: LEFT ATRIAL ABNORMALITY Electronically Signed By: Jluiann Fermin 13-Jan-2018 22:32:53
--- NOTE | 2018-01-13 21:45 | EDPHY ---
H & P Time Seen by Provider: 01/13/18 21:28 HPI/ROS: CHIEF COMPLAINT: Chest pain HISTORY OF PRESENT ILLNESS: Patient is a 62-year-old male with a history of coronary artery disease status post AL and subsequent CABG in 11/2017. Patient states that he was riding his stationary bike this morning any head less than 1 min of chest pain around 9:00 a.m.. Since that time he has felt well. He has had no further episodes of chest pain. No shortness of breath. Patient denies any nausea vomiting. No diaphoresis. Patient called his lace and textiles restorer but did not hear back. He spoke with his primary care physician this evening who sent him to the emergency department for evaluation. REVIEW OF SYSTEMS: My complete review of systems is negative except as mentioned in the HPI. Past Medical/Surgical History: Includes coronary artery disease, bipolar disorder, chronic back pain, constipation, HIV (viral load undetectable) Past surgical history: CABG, stent placement Smoking Status: Former smoker Physical Exam: Vitals noted GENERAL: Well-appearing, in no acute distress, alert. HEENT: Eyes normal to inspection, normal pharynx, no signs of dehydration. NECK: No thyromegaly, no lymphadenopathy, supple. RESPIRATORY: Clear to auscultation bilaterally, no rales, rhonchi or wheezing. CVS: Regular rate and rhythm, no rubs, murmurs, or gallops. Chest: Sternotomy site is clean dry and intact ABDOMEN: Soft, nontender, nondistended, no organomegaly. BACK: Normal to inspection, no CVA tenderness. SKIN: Normal color, no rash, warm, dry. No pallor. EXTREMITIES: No pedal edema, no calf tenderness, no Homans sign or cords, no joint swelling. NEURO/PSYCH: Alert and oriented, normal mood and affect, normal motor sensory exam. Allergies/Adverse Reactions: oxycodone HCl [From OxyContin] Allergy (Verified 01/13/18 20:22) Itching escalith Allergy (Severe, Uncoded 11/26/17 23:12) oxycodone HCl Allergy (Unknown, Uncoded 11/26/17 23:12) Itching Home Medications: Medication Instructions Recorded Aspirin 01/13/18 Gabapentin 01/13/18 Lipitor 01/13/18 [place] Carbonate 01/13/18 Senokot 01/13/18 Zofran 01/13/18 Medical Decision Making ED Course/Re-evaluation: In the emergency department I discussed possible etiologies with the patient. Answered all his questions. Patient took a full-strength aspirin earlier today. Laboratory studies, EKG and chest x-ray were ordered. Sinus rhythm. Normal axis. Normal intervals. Slight ST depression in V3 through V6. I compared this with previous EKG. These findings were present previously. Patient's CBC was notable for mild anemia. Patient has had anemia previously. Patient's chemistry panel is unremarkable. His troponin is negative. Chest x-ray: No acute disease noted. I discussed the results with the patient. I answered all his questions. He is given warnings prior to leaving. He will return with worsening symptoms. Differential Diagnosis: My differential includes but is not limited to ACS, acute AL, pericarditis, myocarditis, pneumonia, bronchitis - Data Points Laboratory Results: Laboratory Results 01/13/18 21:44 01/13/18 21:44 01/13/18 01/13/18 01/13/18 21:52 21:44 21:44 WBC 7.86 10^3/uL 10^3/uL (3.80-9.50) RBC 3.76 10^6/uL L 10^6/uL (4.40-6.38) Hgb 10.6 g/dL L g/dL (13.7-17.5) Hct 32.8 % L % (40.0-51.0) MCV 87.2 fL fL (81.5-99.8) MCH 28.2 pg pg (27.9-34.1) MCHC 32.3 g/dL L g/dL (32.4-36.7) RDW 14.4 % % (11.5-15.2) Plt Count 322 10^3/uL 10^3/uL (150-400) MPV 9.5 fL fL (8.7-11.7) Neut % (Auto) 37.5 % L % (39.3-74.2) Lymph % (Auto) 46.6 % H % (15.0-45.0) [place] % (Auto) 7.9 % % (4.5-13.0) Eos % (Auto) 7.1 % % (0.6-7.6) Baso % (Auto) 0.8 % % (0.3-1.7) Nucleat RBC Rel Count 0.0 % % (0.0-0.2) Absolute Neuts (auto) 2.95 10^3/uL 10^3/uL (1.70-6.50) Absolute Lymphs (auto) 3.66 10^3/uL H 10^3/uL (1.00-3.00) Absolute Monos (auto) 0.62 10^3/uL 10^3/uL (0.30-0.80) Absolute Eos (auto) 0.56 10^3/uL H 10^3/uL (0.03-0.40) Absolute Basos (auto) 0.06 10^3/uL 10^3/uL (0.02-0.10) Absolute Nucleated RBC 0.00 10^3/uL 10^3/uL (0-0.01) Immature Gran % 0.1 % % (0.0-1.1) Immature Gran # 0.01 10^3/uL 10^3/uL (0.00-0.10) Sodium 141 mEq/L mEq/L (135-145) Potassium 4.3 mEq/L mEq/L (3.3-5.0) Chloride 109 mEq/L mEq/L (97-110) Carbon Dioxide 20 mEq/l L mEq/l (22-31) Anion Gap 12 mEq/L mEq/L (8-16) BUN 18 mg/dL mg/dL (7-23) Creatinine 1.4 mg/dL H mg/dL (0.7-1.3) Estimated GFR 51 Glucose 89 mg/dL mg/dL (70-100) Calcium 9.6 mg/dL mg/dL (8.5-10.4) POC Troponin I 0.01 ng/mL ng/mL (0.00-0.08) Point of Care Test Results: Chemistry 01/13/18 21:52 POC Troponin I 0.01 ng/mL ng/mL (0.00-0.08) Departure - Departure Disposition: Home, Routine, Self-Care Clinical Impression: Chest pain Qualifiers: Chest pain type: unspecified Qualified Code(s): R07.9 - Chest pain, unspecified Condition: Good Instructions: Chest Pain (ED) Additional Instructions: Return with increasing shortness of breath, chest pain, fever chills or any other concerns. Referrals: Lucas Cook MD [Primary Care Provider] - 2-3 days, call for appt.
[2018-01-13 21:56] LABS: PLATELET COUNT 322 10^3/uL (150-400)
[2018-01-13 22:39] VITALS: BP 121/91
== END 2018-01-13 22:38 | disposition home or self-care (01) ==
LOC: EEVIPCON 20:15
DX: R07.9 Chest pain, unspecified (principal); I25.810 Atherosclerosis of coronary artery bypass graft(s) without angina pectoris; B20 Human immunodeficiency virus [HIV] disease; Z79.82 Long term (current) use of aspirin; Z87.891 Personal history of nicotine dependence
CPT/HCPCS: 84484-PO

== ENCOUNTER 2018-01-20 22:18 | Emergency (ER) | payer OTHER ==
[2018-01-20 22:32] VITALS: BP 128/83
--- NOTE | 2018-01-21 00:10 | EDPHY ---
H & P Stated Complaint: c/o cough since november, worse last 3 day, also bilat LE edema x3 days Time Seen by Provider: 01/20/18 23:41 HPI/ROS: HPI The patient presents with coughing and lower extremity edema over the last 3 days. The patient is status post CABG performed in November of 2017. He had postoperative atelectasis which improved over time and the cough that he had postoperatively improved., however over the last 3 days he has had a cough productive of clear sputum which has been intermittent and mild in severity. This is unusual for him. He also in the similar time course of the last 3 days has had progressive lower extremity edema in his feet and lower legs. He has been taking Lasix 20 mg once daily for the last 2 weeks, he took a 40 mg dose today because of the lower extremity edema. He is concerned he may be developing CHF. He has not had any chest pain with this, however had 1 min of angina last week and was evaluated in the emergency department with an unremarkable workup. He has not had any fevers or chills. He is participating in cardiac rehab and does not have any dyspnea on exertion. He does not have any orthopnea or PND. REVIEW OF SYSTEMS Constitutional: No fever, no chills. Eyes: No discharge. ENT: No sore throat. Cardiovascular: No chest pain, no palpitations. Respiratory: No cough, no shortness of breath. Gastrointestinal: No abdominal pain, no vomiting. Genitourinary: No hematuria. Musculoskeletal: No back pain. Skin: No rashes. Neurological: No headache. PMHx: CAD status post CABG, HIV, HIV medication induced nephropathy Soc Hx: Housed PHYSICAL General Appearance: Alert, no distress Eyes: Pupils equal and round no pallor or injection ENT, Mouth: Mucous membranes moist Respiratory: There are no retractions, lungs are clear to auscultation Cardiovascular: Regular rate and rhythm Gastrointestinal: Abdomen is soft and non-tender, no masses, bowel sounds normal Neurological: A&O, moves all extremities Skin: Warm and dry, no rashes Musculoskeletal: Neck is supple non tender Extremities: symmetrical, there is 1+ lower extremity edema bilaterally to mid landeros, full range of motion Psychiatric: Patient is oriented X 3, there is no agitation Source: Patient, Old records Exam Limitations: No limitations - Personal History Tetanus Vaccine Date: 2015 - Medical/Surgical History Hx Asthma: No Hx Chronic Respiratory Disease: No Hx Diabetes: No Hx Cardiac Disease: Yes Hx Renal Disease: Yes Hx Cirrhosis: No Hx Alcoholism: Yes Hx HIV/AIDS: Yes Hx Splenectomy or Spleen Trauma: No Other PMH: HIV, neuropathy, 4 stents placed between [address] [place] [address] Lambert, lumbar fusion January 20 2015, spinal cord stimulator 01/10/2017, bipolar type 2, constipation, hyperlipidemia, IA , orif L ankle - Social History Smoking Status: Former smoker Constitutional: Initial Vital Signs Temperature (C) 36.9 C 01/20/18 22:23 Heart Rate 93 01/20/18 22:23 Respiratory Rate 18 01/20/18 22:23 Blood Pressure 128/83 H 01/20/18 22:23 O2 Sat (%) 97 01/20/18 22:23 O2 Delivery Mode Room Air Allergies/Adverse Reactions: oxycodone HCl [From OxyContin] Allergy (Verified 01/20/18 22:32) Itching escalith Allergy (Severe, Uncoded 11/26/17 23:12) oxycodone HCl Allergy (Unknown, Uncoded 11/26/17 23:12) Itching Home Medications: Medication Instructions Recorded Aspirin 01/13/18 Gabapentin 01/13/18 Lipitor 01/13/18 [place] Carbonate 01/13/18 Senokot 01/13/18 Zofran 01/13/18 Descovy 200-25 mg Tablet 01/20/18 Tivicay 01/20/18 Medical Decision Making - Diagnostics EKG Interpretation: EKG: Complete interpretation has been separately recorded in the [email or web address] archive. Summary impression: Normal sinus rhythm, rate 87, ST segment depressions in lateral leads which are unchanged from his prior EKG dated January 13. Imaging Results: Chest x-ray two view shows mild cardiomegaly, no pleural effusions, no infiltrate, interpreted by me, radiology interpretation is pending. Imaging: I viewed and interpreted images myself Differential Diagnosis: This is a 62-year-old male with history of CAD status post CABG in November of 2017 , HIV, hypertension who presents from home with 3 days of cough in association with bilateral lower extremity edema. On exam, generally well-appearing with normal vital signs and normal oxygen saturation. Lungs sound clear without any crackles auscultated. He does have symmetric lower extremity edema which is 1+ to his mid lower leg. Differential diagnosis includes CHF in exacerbation, renal failure, pneumonia, viral URI. Patient is hesitant to have IV placed. He agrees to blood work. EKG shows ST segment depressions however this is unchanged from his prior EKG. Chest x-ray revealed cardiomegaly with no signs of overt heart failure. When patient return to his room after the chest x-ray he refused blood work. He then eloped from the emergency department prior to my reassessment. He seemed generally dissatisfied with his ED care. Without labs, it is unclear if his cough is related to any underlying CHF, renal failure. Given that chest x- ray does not reveal any emergent condition, I am hopeful that he will not decompensated home. - Data Points Laboratory Results: Laboratory Results 01/20/18 23:00 01/20/18 23:00 Sodium 139 mEq/L mEq/L (135-145) Potassium 4.4 mEq/L mEq/L (3.3-5.0) Chloride 102 mEq/L mEq/L (97-110) Carbon Dioxide 21 mEq/l L mEq/l (22-31) Anion Gap 16 mEq/L mEq/L (8-16) BUN 20 mg/dL mg/dL (7-23) Creatinine 1.6 mg/dL H mg/dL (0.7-1.3) Estimated GFR 44 Glucose 97 mg/dL mg/dL (70-100) Calcium 10.3 mg/dL mg/dL (8.5-10.4) Troponin I < 0.012 ng/mL ng/mL (0.000-0.034) NT-Pro-B Natriuret Pep 478 pg/mL H pg/mL (0-125) Specimen Hemolysis 163 Departure - Departure Disposition: Against Medical Advice Clinical Impression: Cough, Lower extremity edema Condition: Fair Referrals: NONE *PRIMARY CARE P,. [Primary Care Provider] - As per Instructions
--- NOTE | 2018-01-21 00:24 | CPEKG ---
Heart Rate: 87 RR Interval: 690 P-R Interval: 172 QRSD Interval: 106 QT Interval: 416 QTC Interval: 501 P [place]: 50 QRS [place]: 26 T Wave [place]: 115 EKG Severity - ABNORMAL ECG - EKG Impression: SINUS RHYTHM EKG Impression: VENTRICULAR PREMATURE COMPLEX EKG Impression: LEFT ATRIAL ABNORMALITY EKG Impression: REPOL ABNRM SUGGESTS ISCHEMIA, LATERAL LEADS EKG Impression: PROLONGED QT INTERVAL Electronically Signed By: Albina Fierro 21-Jan-2018 04:43:10
== END 2018-01-21 00:20 | disposition left against medical advice (07) ==
DX: R05 Cough (principal); R60.0 Localized edema; I25.810 Atherosclerosis of coronary artery bypass graft(s) without angina pectoris; B20 Human immunodeficiency virus [HIV] disease; I25.2 Old myocardial infarction; Z79.82 Long term (current) use of aspirin; Z87.891 Personal history of nicotine dependence; Z95.5 Presence of coronary angioplasty implant and graft

== ENCOUNTER → 2018-05-12 | Outpatient (CLI) | payer OTHER | LOC: FIMAGING 08:32 | PROVIDERS: ATTEND Internal Medicine | DX: Z01.811 Encounter for preprocedural respiratory examination (principal) ==

== ENCOUNTER → 2018-08-01 | Outpatient (CLI) | payer OTHER, MEDICAID | LOC: FIMAGING 14:19 | PROVIDERS: ATTEND Physician Assistant | DX: R13.10 Dysphagia, unspecified (principal); R49.0 Dysphonia; J31.0 Chronic rhinitis ==

== ENCOUNTER → 2018-08-11 | Outpatient (CLI) | payer OTHER, MEDICAID | PROVIDERS: ATTEND Physician Assistant | DX: R13.10 Dysphagia, unspecified (principal); R49.0 Dysphonia | CPT/HCPCS: 92611-GN ==

== ENCOUNTER → 2018-09-16 | Outpatient (CLI) | payer OTHER, MEDICAID | LOC: FIMAGING 15:47 | PROVIDERS: ATTEND Physical Medicine & Rehabilitation | DX: S46.011A Strain of muscle(s) and tendon(s) of the rotator cuff of right shoulder, initial encounter (principal); M75.21 Bicipital tendinitis, right shoulder ==

== ENCOUNTER → 2018-10-07 | Outpatient (CLI) | payer OTHER, MEDICAID | LOC: FIMAGING 17:35 | PROVIDERS: ATTEND Physical Medicine & Rehabilitation | DX: M51.36 Other intervertebral disc degeneration, lumbar region (principal); M48.061 Spinal stenosis, lumbar region without neurogenic claudication; M51.26 Other intervertebral disc displacement, lumbar region; M43.16 Spondylolisthesis, lumbar region; R60.0 Localized edema; Z98.1 Arthrodesis status ==

== ENCOUNTER → 2018-10-12 | Outpatient (CLI) | payer OTHER, MEDICAID | LOC: FIMAGING 09:31 | PROVIDERS: ATTEND Physical Medicine & Rehabilitation | DX: S22.040A Wedge compression fracture of fourth thoracic vertebra, initial encounter for closed fracture (principal); Z96.89 Presence of other specified functional implants ==

== ENCOUNTER 2018-10-30 20:34 | Emergency (ER) | payer OTHER, MEDICAID ==
--- NOTE | 2018-10-30 20:29 | EDPHY ---
H & P Time Seen by Provider: 10/30/18 20:35 Constitutional: Initial Vital Signs Temperature (C) 36.9 C 10/30/18 20:41 Heart Rate 88 10/30/18 20:41 Respiratory Rate 16 10/30/18 20:41 Blood Pressure 147/89 H 10/30/18 20:41 O2 Sat (%) 93 10/30/18 20:41 O2 Delivery Mode Room Air Allergies/Adverse Reactions: oxycodone HCl [From OxyContin] Allergy (Verified 01/20/18 22:32) Itching escalith Allergy (Severe, Uncoded 11/26/17 23:12) oxycodone HCl Allergy (Unknown, Uncoded 11/26/17 23:12) Itching Home Medications: Medication Instructions Recorded Aspirin 01/13/18 Gabapentin 01/13/18 Lipitor 01/13/18 [place] Carbonate 01/13/18 Senokot 01/13/18 Zofran 01/13/18 Descovy 200-25 mg Tablet 01/20/18 Tivicay 01/20/18 Atorvastatin Calcium 10/30/18 Colace 10/30/18 [place]covy 200-25 mg Tablet 10/30/18 Fluticasone Nasal 10/30/18 Furosemide 10/30/18 Gaviscon 80-14.2 mg Tab Chew 10/30/18 Nexium 10/30/18 Medical Decision Making - Diagnostics Imaging Results: Imaging Impressions Chest X-Ray 10/30/18 20:39 Impression: No evidence for acute cardiopulmonary abnormality. Stable chronic findings as above. Imaging: I viewed and interpreted images myself ED Course/Re-evaluation: CHIEF COMPLAINT: Chest pressure HISTORY OF PRESENT ILLNESS: The patient is a 63 y/o male with a history of 10 Cardiac stents and a CABG x 3 arriving via EMS for chest pain. Last November, 1 year ago, the patient was admitted to this hospital for a CABG after developing chest pain. Today the patient went for a walk and felt more tired than normal. He took a nap, but woke up with substernal chest pressure, diaphoresis, and shortness of breath. He too Gaviscon for gas which did not relieve his symptoms. The patient then took SL Nitro which did relieve his symptoms. He then called EMS who brought the patient to the emergency department. The patient reports that his symptoms today are similar to his symptoms prior to his CABG last year. No fever, headache, body aches, lightheadedness, heart palpitations, cough, abdominal pain , urinary or bowel complaints, numbness, paresthesias. REVIEW OF SYSTEMS: A comprehensive 10 system review of systems is otherwise negative aside from elements mentioned in the history of present illness and medical decision making. PHYSICAL EXAM: HR, BP, O2 Sat, RR. Temp noted General Appearance: Alert, well hydrated, appropriate, and non-toxic appearing. Head: Atraumatic without scalp tenderness or obvious injury Eyes: Pupils equal, round, reactive to light and accommodation, EOMI, no trauma , no injection. Ears: Clear bilaterally, no perforation, normal landmarks Nose: Atraumatic, no rhinorrhea, clear. Throat: There is no erythema or exudates, no lesions, normal tonsils, mucus membranes moist. Neck: Supple, 2+ carotid upstroke, nontender, no lymphadenopathy. Respiratory: No retractions, no distress, no wheezes, and no accessory muscle use. Lungs are clear to auscultation bilaterally. Cardiovascular: Regular rate and rhythm, no murmurs, rubs, or gallops. Bilateral carotid, radial, dorsalis pedis, and posterior tibial pulses intact. Good capillary refill all extremities. Gastrointestinal: Abdomen is soft, nontender, non-distended, no masses, no rebound, no guarding, no peritoneal signs. Musculoskeletal: Normal active ROM of all extremities, atraumatic. Neurological: Alert, appropriate, and interactive. The patient has normal DTRs and non-focal cranial nerves, motor, sensory, and cerebellar exam. Skin: No rashes, good turgor, no nodules on palpation. Past medical history: HIV, coronary artery disease with 10 stents placed, last stent placed in 2009. 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 CABG x [address] Garcia. Patient also has a history of a lumbar fusion for lumbar stenosis Social history: Here by himself. Former smoker. History of alcohol abuse. DIAGNOSTICS/PROCEDURES/CRITICAL CARE TIME: EKG: The 12 lead EKG was interpreted by myself as sinus rhythm with a rate of 81 , deep t-wave inversion and ST depression in the lateral leads. This EKG is worse than his EKG from January 20, 2018. See hard copy and/or "tracemaster" electronic copy for interpretation. Chest x-ray: No evidence for acute cardiopulmonary abnormality. DIFFERENTIAL DIAGNOSIS: The differential diagnosis for the patient's chest pain included but was not limited to myocardial ischemia, pulmonary embolus, chest wall pain, pleural inflammation, and pulmonary infectious causes. MEDICAL DECISION MAKING: The patient is a 63 y/o male with a history of 10 Cardiac stents and a CABG x 3 arriving via EMS for chest pain. Last November, 1 year ago, the patient was admitted to this hospital for a CABG after developing chest pain. The patient woke up this afternoon with substernal chest pressure, diaphoresis, and shortness of breath. He too Gaviscon for gas which did not relieve his symptoms and SL Nitro which did relieve his symptoms. The patient reports that his symptoms today are similar to his symptoms prior to his CABG last year. The patient has a normal physical exam. Labs, chest x-ray, and EKG ordered. 2034: I met EMS upon arrival. 2038: I interpreted patient's EKG as sinus rhythm with a rate of 81, deep t- wave inversion and ST depression in the lateral leads. This EKG is worse than his EKG from January 20, 2018. 2056: Patient has a negative troponin. He is most likely not having a STEMI. Additional labs and chest x-ray still pending. 2024: Patient's chest x-ray is unremarkable. 2157: Patient's labs reveal chronic renal insufficiency, which is consistent with prior labs. 2214: Reassessed patient and discussed laboratory and imaging findings. I have offered him admission, which he has declined. He states he is asymptomatic and would like to return home. He is comfortable with returning home as he has Gaviscon and Nitroglycerin. The patient also reports he is on [place]. I have advised him to follow up with his dairy feed worker without fail. Return precautions provided; patient is comfortable with this plan. - Data Points Laboratory Results: Laboratory Results 10/30/18 21:35 10/30/18 21:35 10/30/18 10/30/18 10/30/18 21:35 21:35 21:35 WBC 8.80 10^3/uL 10^3/uL (3.80-9.50) RBC 4.06 10^6/uL L 10^6/uL (4.40-6.38) Hgb 13.0 g/dL L g/dL (13.7-17.5) Hct 38.2 % L % (40.0-51.0) MCV 94.1 fL fL (81.5-99.8) MCH 32.0 pg pg (27.9-34.1) MCHC 34.0 g/dL g/dL (32.4-36.7) RDW 14.6 % % (11.5-15.2) Plt Count 292 10^3/uL 10^3/uL (150-400) MPV 9.6 fL fL (8.7-11.7) Neut % (Auto) 44.9 % % (39.3-74.2) Lymph % (Auto) 44.0 % % (15.0-45.0) [place] % (Auto) 5.9 % % (4.5-13.0) Eos % (Auto) 4.4 % % (0.6-7.6) Baso % (Auto) 0.6 % % (0.3-1.7) Nucleat RBC Rel Count 0.0 % % (0.0-0.2) Absolute Neuts (auto) 3.95 10^3/uL 10^3/uL (1.70-6.50) Absolute Lymphs (auto) 3.87 10^3/uL H 10^3/uL (1.00-3.00) Absolute Monos (auto) 0.52 10^3/uL 10^3/uL (0.30-0.80) Absolute Eos (auto) 0.39 10^3/uL 10^3/uL (0.03-0.40) Absolute Basos (auto) 0.05 10^3/uL 10^3/uL (0.02-0.10) Absolute Nucleated RBC 0.00 10^3/uL 10^3/uL (0-0.01) Immature Gran % 0.2 % % (0.0-1.1) Immature Gran # 0.02 10^3/uL 10^3/uL (0.00-0.10) PT 12.7 SEC SEC (12.0-15.0) INR 0.99 (0.83-1.16) APTT 27.6 SEC SEC (23.0-38.0) Sodium 137 mEq/L mEq/L (135-145) Potassium 3.9 mEq/L mEq/L (3.5-5.2) Chloride 102 mEq/L mEq/L (97-110) Carbon Dioxide 26 mEq/l mEq/l (22-31) Anion Gap 9 mEq/L mEq/L (6-14) BUN 39 mg/dL H mg/dL (7-23) Creatinine 1.6 mg/dL H mg/dL (0.7-1.3) Estimated GFR 44 Glucose 101 mg/dL H mg/dL (70-100) Calcium 9.7 mg/dL mg/dL (8.5-10.4) POC Troponin I NT-Pro-B Natriuret Pep 250 pg/mL H pg/mL (0-125) 10/30/18 20:48 WBC RBC Hgb Hct MCV MCH MCHC RDW Plt Count MPV Neut % (Auto) Lymph % (Auto) [place] % (Auto) Eos % (Auto) Baso % (Auto) Nucleat RBC Rel Count Absolute Neuts (auto) Absolute Lymphs (auto) Absolute Monos (auto) Absolute Eos (auto) Absolute Basos (auto) Absolute Nucleated RBC Immature Gran % Immature Gran # PT INR APTT Sodium Potassium Chloride Carbon Dioxide Anion Gap BUN Creatinine Estimated GFR Glucose Calcium POC Troponin I 0.00 ng/mL ng/mL (0.00-0.08) NT-Pro-B Natriuret Pep Point of Care Test Results: Chemistry 10/30/18 20:48 POC Troponin I 0.00 ng/mL ng/mL (0.00-0.08) Departure - Departure Disposition: Home, Routine, Self-Care Clinical Impression: S/P CABG x 3 Chest pain Qualifiers: Chest pain type: other chest pain Qualified Code(s): R07.89 - Other chest pain Chronic renal insufficiency Qualifiers: Chronic kidney disease stage: unspecified stage Qualified Code(s): N18.9 - Chronic kidney disease, unspecified Condition: Good Instructions: Chest Pain (ED) Additional Instructions: 1. Follow-up with your primary doctor within 72 hours. 2. Return to the Emergency Department for fever, chest pain, shortness of breath , increasing pain or other worsening of condition. 3. Follow up with a dairy feed worker for further testing, as soon as possible, within one week. 4. As we discussed, it is impossible to fully rule out heart disease as the cause of your chest pain in the emergency department. We would be happy to reevaluate you and observe you in the hospital at any time. Referrals: Lucas Cook MD [Primary Care Provider] - As per Instructions London Lambert MD [Medical Doctor] - As per Instructions Report Scribed for: Usama Caballero Report Scribed by: Jolanta Louis Date of Report: 10/30/18 Time of Report: 21:01
[2018-10-30 21:47] LABS: PLATELET COUNT 292 10^3/uL (150-400)
[2018-10-30 21:54] LABS: INR 0.99 (0.83-1.16); PROTIME(PATIENT) 12.7 SEC (12.0-15.0)
[2018-10-30 22:29] VITALS: BP 139/90
--- NOTE | 2018-10-31 19:21 | CPEKG ---
Test Reason : OPEN Blood Pressure : / mmHG Vent. Rate : 081 BPM Atrial Rate : 082 BPM P-R Int : 173 ms QRS Dur : 103 ms QT Int : 376 ms P-R-T Axes : 044 011 146 degrees QTc Int : 437 ms Sinus rhythm Left atrial enlargement Repol abnrm suggests ischemia, anterolateral Confirmed by Usama Caballero ([id number]) on 10/31/2018 7:20:18 PM Referred By: Usama Caballero Confirmed By:Usama Caballero
== END 2018-10-30 22:28 | disposition home or self-care (01) ==
LOC: EDUNIT#
DX: R07.89 Other chest pain (principal); N18.9 Chronic kidney disease, unspecified; Z95.5 Presence of coronary angioplasty implant and graft
CPT/HCPCS: 84484-ER

== ENCOUNTER → 2018-11-26 | Outpatient (CLI) | payer OTHER, MEDICAID | LOC: FIMAGING 10:36 | DX: M43.16 Spondylolisthesis, lumbar region (principal); Z98.1 Arthrodesis status ==